=== PATIENT | male | born 1955 | race Caucasian/White ===

== ENCOUNTER 2018-08-09 11:06 | Outpatient (CLI) | payer OTHER ==
[~2018-08-09] VITALS: Ht 172.7 cm; Wt 104.3 kg
[2018-08-09] MEDS ORDERED: IRBE300T18 PO (12:58)
[2018-08-09] MEDS ORDERED: METO-370 PO (12:58)
[2018-08-09] MEDS ORDERED: ASPI-586 PO (12:58)
== END 2018-08-09 13:07 | disposition home or self-care (01) ==
LOC: PREOP 11:06
PROVIDERS: ATTEND Surgery
DX: Z01.818 Encounter for other preprocedural examination (principal)

== ENCOUNTER 2018-08-17 06:01 | Day surgery (SDC) | payer BC, OTHER ==
[~2018-08-17] VITALS: Ht 172.7 cm; Wt 104.4 kg
[~2018-08-17 06:01] MED LIST: ASPI-586 PO; IRBE300T18 PO; METO-370 PO
[2018-08-17 06:20] VITALS: BP 154/114
[2018-08-17] MEDS ORDERED: LACTATED RINGERS 1,000 ML IV PRN (06:22)
[2018-08-17] MEDS ORDERED: ceFAZolin 2 GM IV Premixed 50 ML IV ONE (06:30)
[2018-08-17] MEDS ORDERED: LIDOCAINE 1% INJ 20 ML 20 ML VIAL ONE (07:21)
[2018-08-17] MEDS ORDERED: BUP/EPI 0.5% 1:200,000 (SENSORCAINE) 30 ML VIAL ONE (07:21)
[2018-08-17] MEDS ORDERED: MIDAZOLAM 2 MG/2 ML (VERSED) VIAL ONE ×2 (07:23→07:26)
[2018-08-17] MEDS ORDERED: proPOfol 200 MG/20 ML (DIPRIVAN) VIAL IV ONE ×2 (07:26→08:51)
[2018-08-17] MEDS ORDERED: DEXAMETHASONE 10 MG/ML (DECADRON) 1 ML VIAL ONE (07:26)
[2018-08-17] MEDS ORDERED: SEVOFLURANE (ULTANE) 15 ML INHAL SOLN ONE ×2 (07:26→09:03)
[2018-08-17] MEDS ORDERED: fentaNYL INJECTION 100 MCG/2 ML AMP ONE (07:26)
[2018-08-17] MEDS ORDERED: LIDOCAINE PF 2% 5 ML (XYLOCAINE) VIAL ONE (07:26)
[2018-08-17] MEDS ORDERED: ONDANSETRON 4 MG/2 ML (SDV) Z0FRAN ONE (07:26)
[2018-08-17] MEDS ORDERED: MIDAZOLAM 2 MG/2 ML (VERSED) VIAL IVP ONE (07:30)
[2018-08-17] MEDS ORDERED: LABETALOL HCL 20 MG/4 ML VIAL IV ONE (07:30)
--- NOTE | 2018-08-17 08:26 | Progress Note-Pre Operative ---
Pre-Operative Progress Note H&P Reviewed The H&P was reviewed, patient examined and no changes noted. Time Seen by Provider: 08:21 Date H&P Reviewed: Aug 17, 2018 Time H&P Reviewed: 08:22 Pre-Operative Diagnosis: Inc RACIEL PAIZ DO Aug 17, 2018 08:26
[2018-08-17] MEDS ORDERED: ACHD5005 PO (09:14)
--- NOTE | 2018-08-17 09:14 | Progress Note-Post Operative ---
Post-Operative Progess Note Surgeon (s)/Supervisor [employer] (s) Surgeon RACIEL GARSIA DO Supervisor [employer]: Stephen Pre-Operative Diagnosis Inc [facility] Post-Operative Diagnosis Same - direct Cord lipoma Procedure & Operative Findings Date of Procedure 08/17/18 Procedure Performed/Findings RIH with mesh Exc cord lipoma Anesthesia Type GET Estimated Blood Loss Estimated blood loss (mL): Scant Specimens/Packing Specimens Removed cord lipoma RACIEL GARSIA DO Aug 17, 2018 09:14
--- NOTE | 2018-08-17 09:15 | Discharge Inst-Surgical ---
Discharge Inst-Surgical Depart Medication/Instructions New, Converted or Re-Newed RX: RX Given to Pt/Family Patient Instructions Follow up Appt: Make appointment for 1 week. [phone] Instructions: No lifting greater than 20 pounds. No strenuous activity. May shower in 24 hours, no tub bath or soaking. Use incentive spirometer at home as directed. No Smoking Skin/Wound Care: May remove bandages in am. You need to leave the Dermabond on incision it will fall off on it's own. Symptoms to Report: Appetite Changes, Extremity Discoloration, Numbness/Tingling, Swelling Increased , Bleeding Excessive, Eyesight Changes, Pain Increased, Urine Color Change, Constipation(Persistent), Fever over 101 degree F, Pain/Pressure in chest, Urinating Difficulty, Cough Up/Vomit Blood, Heart Beat Irreg/Pounding, Pain/ Pressure in jaw, Cramps in feet or legs, Lightheadedness, Pain/Pressure in shoulder, Diarrhea(Persistent), Memory Changes Suddenly, Questions/Concerns, Weight gain consecutive days, Dizziness/Fainting, Nausea/Vomiting, Shortness of Breath, Weight gain over 2 pounds If questions or concerns contact your physician Or seek help at emergency department. Activity Activity as Tolerated: Yes Activity Instructions: Avoid Stress to Incision Driving Instructions: No Driving/Refer to Dr. Rob Discharge Diet: No Restrictions Diet After 24 Hours: Clear Liquid if Nauseous If Any Problems/Questions/Issu: Contact Your Physician Skin/Wound Care Infection Signs and Symptoms: Increased Redness, Foul Odor of Wound, Increased Drainage, Skin Itchy or Has a Rash, Increased Swelling, Temperature Above 101 F Stitches/[place]/Dermabond Dis: Dermabond Ice Pack: Ice On and Off Site (as needed for pain) RACIEL GARSIA DO Aug 17, 2018 09:15
[2018-08-17] MEDS ORDERED: morphine INJ 10 MG/ML 1ML (SYR OR VIAL) IVP ONE (09:30)
[2018-08-17 10:20] VITALS: BP 130/96
[2018-08-17 10:25] VITALS: BP 154/114
[2018-08-17 10:50] VITALS: BP 125/87
[2018-08-17 11:20] VITALS: BP 135/90
--- NOTE | 2018-08-17 13:03 | Anesthesia-General Post-Op ---
General Patient Condition Mental Status/LOC: Same as Preop Cardiovascular: Satisfactory Nausea/Vomiting: Absent Respiratory: Satisfactory Pain: Controlled Complications: Absent Post Op Complications Complications None Follow Up Care/Instructions Patient Instructions None needed. Anesthesia/Patient Condition Patient Condition Patient is doing well, no complaints, stable vital signs, no apparent adverse anesthesia problems. No complications reported per nursing. DAE LUX CRNA Aug 17, 2018 13:03
--- NOTE | 2018-08-17 15:35 | OPERATIVE REPORT ---
DATE OF SERVICE: 08/17/2018 PREOPERATIVE DIAGNOSIS: Right inguinal hernia. POSTOPERATIVE DIAGNOSES: 1. Right incarcerated indirect inguinal hernia. 2. Cord lipoma. PROCEDURES PERFORMED: 1. Right inguinal herniorrhaphy and mesh placement. 2. Excision of cord lipoma. SURGEON: Dagoberto Lora DO. ANTITANK ASSAULT GUNNER: Guy Mitchell DO. ANESTHESIA: General endotracheal tube. SPECIMEN: Cord lipoma. BLOOD LOSS: Scant. FLUIDS: Per Anesthesia. POSTOPERATIVE CONDITION: Stable. INDICATION FOR PROCEDURE: The patient is a 63-year-old male who had bulge in the right inguinal region, little bit of pain and diagnosed with inguinal hernia, wanted to get this fixed, I felt like it was reducible in the office. FINDINGS: The patient actually had an incarcerated direct inguinal hernia as well as he had a cord lipoma. PROCEDURE NOTE: After informed consent was obtained, the patient was brought to the operating room, placed on the table in supine position, sterilely prepped and draped in normal fashion. Local lidocaine used for an ilioinguinal nerve block as well as pubic tubercle block and then infiltrated the right inguinal region with local, made incision with #15 blade, carried down through the skin into subcutaneous tissue, then deepened down to subcutaneous tissue with Bovie electrocautery down to the fascia of the external oblique. External oblique fascia was then infiltrated with local and incised to the external inguinal ring with Bovie electrocautery, grasping 2 sides with hemostats, then able to get under the external oblique fascia bluntly with a finger to free this area and then get under the cord and cord structures at the pubic tubercle. I placed a [place] drain and pulled this in the inferolateral direction, noted a very large hernia sac attached to the cord and cord structures. I was able to start carefully peeling this away and it was found to be a large direct inguinal hernia sac. At this point, then I looked superior medially and did not find indirect inguinal hernia sac. Pushed the indirect hernia sac back into the abdomen and then closed the floor of the inguinal canal with #0 Vicryl two [id number] sutures. This was closed nicely. I then placed a Parietex mesh into the inguinal canal, sutured one to the pubic tubercle and encircled the cord with a precut hole and then placing it up under the external oblique fascia and laid in nicely, copiously irrigated with normal saline, suctioned this out. I then closed the external fascia with 3-0 Vicryl running suture, thereby recreating the external inguinal ring and the internal inguinal ring had been recreated with the mesh, then closed Tg fascia with 3-0 Vicryl interrupted sutures and closed the skin with a 4-0 undyed Monocryl in subcuticular fashion. Area was cleaned and dried and Dermabond placed. The patient was then transferred to recovery room in stable condition. Sponge and needle counts were correct at the end of the case. Dr. Mitchell assisted in this case helping to close the incisions, identifying anatomy, hold anatomy out of the way. Job ID: [id number] DocumentID: [id number] Dictated Date: 08/17/2018 11:54:14 Repair Mechanic Date: 08/17/2018 15:34:32 Dictated By: DAGOBERTO LORA DO
== END 2018-08-17 11:50 | disposition home or self-care (01) ==
LOC: SDC 06:01
PROVIDERS: ATTEND Surgery
DX: K40.30 Unilateral inguinal hernia, with obstruction, without gangrene, not specified as recurrent (principal); D17.6 Benign lipomatous neoplasm of spermatic cord; I48.2 Chronic atrial fibrillation; I10 Essential (primary) hypertension; E78.5 Hyperlipidemia, unspecified; K21.9 Gastro-esophageal reflux disease without esophagitis; E66.9 Obesity, unspecified; Z68.35 Body mass index [BMI] 35.0-35.9, adult; Z79.82 Long term (current) use of aspirin; Z79.899 Other long term (current) drug therapy
CPT/HCPCS: 87081; 93005

== ENCOUNTER 2018-10-24 05:38 | Outpatient (CLI) | payer BC ==
[~2018-10-24] VITALS: Ht 172.7 cm; Wt 102.2 kg
[~2018-10-24 05:38] MED LIST changes: +ACHD5005 PO
[2018-10-24] MEDS ORDERED: CHLO25TA22 PO (13:58)
[2018-10-24] MEDS ORDERED: OLME40TA18 PO (13:58)
== END 2018-10-24 14:24 | disposition home or self-care (01) ==
LOC: PREOP 05:38
PROVIDERS: ATTEND Internal Medicine
DX: Z01.818 Encounter for other preprocedural examination (principal)

== ENCOUNTER → 2018-10-27 | Day surgery (SDC) | payer BC ==
--- NOTE | 2018-10-20 17:36 | HISTORY AND PHYSICAL ---
DATE OF SERVICE: SCREENING COLONOSCOPY HISTORY AND PHYSICAL HISTORY OF PRESENT ILLNESS: The patient is 63-year-old white male seen in the office on 10/18/2018 for followup of persistent atrial fibrillation, hypertension and nonalcoholic fatty liver disease. He has been exercising regularly and has cut back on portions and his weight is down 6 pounds with a goal by next April to get to the 210 area. He reports that he has felt well. Ever since initiating irbesartan, his blood pressures have been under better control in addition to chlorthalidone 25 mg. He will be switching to olmesartan due to drug shortages 40 mg daily. He has had no palpitations. Denies chest pain, dyspnea on exertion. Reports that his sleep is restorative. It has been 11 years since his last screening colonoscopy that he stated was unremarkable. He is not aware of any family history for colon cancer. PHYSICAL EXAMINATION: GENERAL: Reveals a white male, appears to be in no acute distress. His BMI is still greater than 30. His height 5 feet 6.5 inches tall with a weight of 231 pounds. VITAL SIGNS: Blood pressure 130/90 at the beginning of the interview and 120/82 at the end, which he states is where his home blood pressures usually run. Heart rate was in the 60s and irregularly irregular. HEENT: Unremarkable. Sclerae nonicteric. Oral cavity reveals Mallampati class 3 pharyngeal configuration without exudate. NECK: Revealed no JVD, adenopathy or bruits. CHEST: Clear to auscultation. CARDIOVASCULAR: Reveals an irregularly irregular rhythm without murmur, S3 or S4. ABDOMEN: Soft, supple without mass, organomegaly or tenderness. EXTREMITIES: Reveal no cyanosis, clubbing or edema. Rectal examination deferred to the time of the colonoscopy, which is being set up on 10/27. Prep instructions with Suprep kit were given and questions were answered. Blood tests were reviewed with the patient. Liver function tests were normal. We pointed out an improvement because of weight loss with an AST of 18 and an ALT of 28. He does have insulin resistance, but this has improved as well with a fasting sugar having gone down from 127 to 118. PSA remains stable and normal at 2.47. The remainder of his chemistry panel was normal. ASSESSMENT AND PLAN: 1. Atrial fibrillation, persistent rate controlled. The patient refuses anticoagulation only on aspirin, which he was told to discontinue 1 week prior to colonoscopy. 2. Hypertension. Under good control. 3. Nonalcoholic fatty liver disease, normalization of liver function tests due to weight loss. The patient commended and strongly encouraged to continue positive lifestyle change. We will see him back in 6 months with a repeat CMP. Job ID: [id number] DocumentID: [id number] Dictated Date: 10/18/2018 18:15:54 Emergency Man Date: 10/18/2018 18:57:41 Dictated By: ALANA OAKES MD MTDD
[~2018-10-27] VITALS: Ht 172.7 cm; Wt 102.2 kg
[~2018-10-27] MED LIST changes: +CHLO25TA22 PO; +D5 LR IV SOLUTION 1,000 ML IV ONE; +D5 LR IV SOLUTION 1,000 ML IV STA; +DICY20TA10 PO; +HYOS0.1283 SL; +LACT1CAP8 PO; +LIDOCAINE JELLY 2% 6 ML SYRINGE MM PRN; +LIDOCAINE JELLY 2% 6 ML SYRINGE ONE; +MIDAZOLAM 2 MG/2 ML (VERSED) VIAL IVP ONE; +MIDAZOLAM 2 MG/2 ML (VERSED) VIAL ONE; +OLME40TA18 PO; +ONDA8TAB13 PO; +PANT40TA2 PO; +fentaNYL INJECTION 100 MCG/2 ML AMP IVP ONE; +fentaNYL INJECTION 100 MCG/2 ML AMP ONE
--- OUTSIDE RECORDS SUMMARY | 2018-10-27 08:03 | XMS REPORT | Continuity of Care Document ---
Author Organization Unknown Address Unknown Allergies Active Description Code Type Severity Reaction Onset Reported/Identified Relationship to Patient Clinical Status Yes No Known Drug Allergies [id number] Drug Allergy Unknown N/A 08/09/2018 Medications There is no data. Problems Date Dx Coded Attending Type Code Diagnosis Diagnosed By 05/10/2012 MARTHA CONLEY APRN 401.1 HYPERTENSION, BENIGN ESSENTIAL 05/10/2012 MARTHA CONLEY APRN 427.31 ATRIAL FIBRILLATION 05/10/2012 401.1 HYPERTENSION, BENIGN ESSENTIAL 05/10/2012 427.31 ATRIAL FIBRILLATION 05/10/2012 BINH HERNANDEZ DO 401.1 HYPERTENSION, BENIGN ESSENTIAL 05/10/2012 BINH HERNANDEZ DO K 427.31 ATRIAL FIBRILLATION 05/10/2012 ISABELLA GLEASON MD 401.1 HYPERTENSION, BENIGN ESSENTIAL 05/10/2012 ISABELLA GLEASON MD 427.31 ATRIAL FIBRILLATION 05/10/2012 MARTHA CONLEY APRN 401.1 HYPERTENSION, BENIGN ESSENTIAL 05/10/2012 MARTHA CONLEY APRN 427.31 ATRIAL FIBRILLATION 05/10/2012 MARTHA CONLEY APRN 401.1 HYPERTENSION, BENIGN ESSENTIAL 05/10/2012 MARTHA CONLEY APRN 427.31 ATRIAL FIBRILLATION 05/15/2012 272.4 HYPERLIPIDEMIA 05/15/2012 790.29 HYPERGLYCEMIA 05/15/2012 BINH HERNANDEZ DO 272.4 HYPERLIPIDEMIA 05/15/2012 BINH HERNANDEZ DO K 790.29 HYPERGLYCEMIA 05/15/2012 ISABELLA GLEASON MD 272.4 HYPERLIPIDEMIA 05/15/2012 ISABELLA GLEASON MD 790.29 HYPERGLYCEMIA 05/15/2012 MARTHA CONLEY APRN 272.4 HYPERLIPIDEMIA 05/15/2012 MARTHA CONLEY APRN 790.29 HYPERGLYCEMIA 05/15/2012 MARTHA CONLEY APRN 272.4 HYPERLIPIDEMIA 05/15/2012 MARTHA CONLEY APRN 790.29 HYPERGLYCEMIA 05/26/2015 VIOLETTE LEVY, ALANA Murillo Ot I10 05/26/2015 VIOLETTE LEVY, ALANA Murillo Ot I48.91 08/09/2018 SUN DO, RACIEL B Ot Z01.818 ENCOUNTER FOR OTHER PREPROCEDURAL EXAMIN 08/10/2018 DELJANUSZ DO, RACIEL B Ot Z01.818 ENCOUNTER FOR OTHER PREPROCEDURAL EXAMIN 08/15/2018 SUN DO, RACIEL B Ot Z01.818 ENCOUNTER FOR OTHER PREPROCEDURAL EXAMIN 08/16/2018 ALANA OAKES MD Ot I10 ESSENTIAL (PRIMARY) HYPERTENSION 08/16/2018 ALANA OAKES MD Ot I48.91 UNSPECIFIED ATRIAL FIBRILLATION 08/17/2018 SUN DO, RACIEL B Ot 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 08/17/2018 SUN DO, RACIEL B Ot E66.9 OBESITY, UNSPECIFIED 08/17/2018 SUN DO, RACIEL B Ot E78.5 HYPERLIPIDEMIA, UNSPECIFIED 08/17/2018 DELJANUSZ DO, RACIEL B Ot I10 ESSENTIAL (PRIMARY) HYPERTENSION 08/17/2018 SUN DO, RACIEL B Ot I48.2 CHRONIC ATRIAL FIBRILLATION 08/17/2018 SUN DO, RACIEL B Ot K21.9 GASTRO-ESOPHAGEAL REFLUX DISEASE WITHOUT 08/17/2018 SUN DO, RACIEL B Ot K40.30 UNIL INGUINAL HERNIA, W OBST, W/O GANGR, 08/17/2018 SUN ROBIN, RACIEL B Ot Z68.35 BODY MASS INDEX (BMI) 35.0-35.9, ADULT 08/17/2018 SUN ROBIN, RACIEL B Ot Z79.82 LONGTERM (CURRENT) USE OF ASPIRIN 08/17/2018 ZENJANUSZ ROBIN RACIEL B Ot Z79.899 OTHER EDITORIAL CLERK (CURRENT) DRUG THERAPY 08/21/2018 SUN ROBIN, RACIEL B Ot 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 08/21/2018 SUN DO, RACIEL B Ot E66.9 OBESITY, UNSPECIFIED 08/21/2018 DELJANUSZ DO, RACIEL B Ot E78.5 HYPERLIPIDEMIA, UNSPECIFIED 08/21/2018 DELJANUSZ DO, RACIEL B Ot I10 ESSENTIAL (PRIMARY) HYPERTENSION 08/21/2018 SUN DO, RACIEL B Ot I48.2 CHRONIC ATRIAL FIBRILLATION 08/21/2018 DELJANUSZ DO, RACIEL B Ot K21.9 GASTRO-ESOPHAGEAL REFLUX DISEASE WITHOUT 08/21/2018 DELMAN DO, RACIEL B Ot K40.30 UNIL INGUINAL HERNIA, W OBST, W/O GANGR, 08/21/2018 RACIEL GARSIA DO B Ot Z68.35 BODY MASS INDEX (BMI) 35.0-35.9, ADULT 08/21/2018 MADELEINE GARSIA DOIC B Ot Z79.82 LONGTERM (CURRENT) USE OF ASPIRIN 08/21/2018 MADELEINE GARSIA DOIC B Ot Z79.899 OTHER EDITORIAL CLERK (CURRENT) DRUG THERAPY 08/21/2018 MADELEINE GARSIA DOIC B Ot 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 08/21/2018 SUN ROBIN RACIEL B Ot E66.9 OBESITY, UNSPECIFIED 08/21/2018 SUN ROBIN RACIEL B Ot E78.5 HYPERLIPIDEMIA, UNSPECIFIED 08/21/2018 SUN ROBIN RACIEL B Ot I10 ESSENTIAL (PRIMARY) HYPERTENSION 08/21/2018 SUN ROBIN RACIEL B Ot I48.2 CHRONIC ATRIAL FIBRILLATION 08/21/2018 SUN ROBIN RACIEL B Ot K21.9 GASTRO-ESOPHAGEAL REFLUX DISEASE WITHOUT 08/21/2018 SUN ROBIN, RACIEL B Ot K40.30 UNIL INGUINAL HERNIA, W OBST, W/O GANGR, 08/21/2018 RACIEL GARSIA DO B Ot Z68.35 BODY MASS INDEX (BMI) 35.0-35.9, ADULT 08/21/2018 MADELEINE GARSIA DOIC B Ot Z79.82 EDITORIAL CLERK (CURRENT) USE OF ASPIRIN 08/21/2018 MADELEINE GARSIA DOIC B Ot Z79.899 OTHER LONGTERM (CURRENT) DRUG THERAPY 08/23/2018 MADELEINE GARSIA DOIC B Ot 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 08/23/2018 SUN ROBIN RACIEL B Ot E66.9 OBESITY, UNSPECIFIED 08/23/2018 SUN ROBIN, RACIEL B Ot E78.5 HYPERLIPIDEMIA, UNSPECIFIED 08/23/2018 SUN ROBIN, RACIEL B Ot I10 ESSENTIAL (PRIMARY) HYPERTENSION 08/23/2018 SUN ROBIN RACIEL B Ot I48.2 CHRONIC ATRIAL FIBRILLATION 08/23/2018 SUN ROBIN RACIEL B Ot K21.9 GASTRO-ESOPHAGEAL REFLUX DISEASE WITHOUT 08/23/2018 SUN ROBIN, RACIEL B Ot K40.30 UNIL INGUINAL HERNIA, W OBST, W/O GANGR, 08/23/2018 RACIEL GARSIA DO Ot Z68.35 BODY MASS INDEX (BMI) 35.0-35.9, ADULT 08/23/2018 RACIEL GARSIA DO Ot Z79.82 LONGTERM (CURRENT) USE OF ASPIRIN 08/23/2018 RACIEL GARSIA DO Ot Z79.899 OTHER LONGTERM (CURRENT) DRUG THERAPY 10/24/2018 VIOLETTE LEVY, ALANA Murillo Ot Z01.818 ENCOUNTER FOR OTHER PREPROCEDURAL EXAMIN Procedures Code Description [place] [address] ROUTINE VENIPUNCTURE 05/11/2012 19018 CBC 05/11/2012 49893 LIPID PANEL 05/11/2012 61867 CMP 05/11/2012 8858623 GFR CALC (RESULT ONLY) 05/11/2012 75190 CRP HS (CARDIO) 05/12/2012 38118 TSH 05/12/2012 49504 BNP 05/12/2012 29204 XRAY CHEST 2 VIEW 05/12/2012 24627 EKG, TRACING (IN-HOUSE) 05/12/2012 Cardiolog Andre Mccullough 05/12/2012 09426 A1C (IN-HOUSE) 05/15/2012 78796 OXIMETRY 06/14/2012 55378 ECHO 2D 06/14/2012 00526 ROUTINE VENIPUNCTURE 03/18/2014 43768 CBC 03/18/2014 27048 CMP 03/18/2014 99577 LIPID PANEL 03/18/2014 6140042 GFR CALC (RESULT ONLY) 03/18/2014 Results Test Result Range Methicillin resistant Staphylococcus aureus (MRSA) screening culture - 08/17/18 06:30 Methicillin resistant Staphylococcus aureus (MRSA) screening culture NEG NRG Encounters ACCT No. Visit Date/Time Discharge Status Pt. Type Provider Facility Loc./Unit Complaint [id number] 03/18/2014 07:57:00 03/18/2014 23:59:59 CLS Outpatient MARTHA CONLEY APRN [id number] 03/13/2014 17:33:00 03/13/2014 23:59:59 CLS Outpatient MARTHA CONLEY APRN [id number] 01/10/2013 10:00:00 01/10/2013 23:59:59 CLS Outpatient ISABELLA GLEASON MD [id number] 06/14/2012 08:55:00 06/14/2012 23:59:59 CLS Outpatient BINH HERNANDEZ DO [id number] 05/15/2012 11:40:00 05/15/2012 23:59:59 CLS Outpatient [id number] 05/11/2012 10:04:00 05/11/2012 23:59:59 CLS Outpatient MARTHA CONLEY APRN [id number] 10/24/2018 05:38:00 10/24/2018 14:24:00 DIS Outpatient ALANA OAKES MD [facility] PREOP COLONOSCOPY [id number] 08/17/2018 06:01:00 08/17/2018 11:50:00 DIS Outpatient RACIEL GARSIA DO [facility] RIGHT INGUINAL HERNIA [id number] 08/09/2018 11:06:00 08/09/2018 13:07:00 DIS Outpatient RACIEL GARSIA DO [facility] PREOP RIGHT INGUINAL HERNIA [id number] 04/28/2015 08:45:00 04/28/2015 23:59:59 CLS Outpatient ALANA OAKES MD [facility] CARD HYPERTENSION PERSISTANT ARTERIAL FIB [id number] 10/27/2018 09:00:00 PEN Preadmit ALANA OAKES MD [facility] ENDO SCREENING
[2018-10-27 08:10] VITALS: BP 135/99
[2018-10-27 09:55] VITALS: BP 134/78
[2018-10-27 10:20] VITALS: BP 118/80
[2018-10-27 10:32] VITALS: BP 118/80
--- NOTE | 2018-10-27 20:00 | OPERATIVE REPORT ---
DATE OF SERVICE: 10/27/2018 COLONOSCOPY SUMMARY INDICATION FOR THE PROCEDURE: Screening colonoscopy. DESCRIPTION OF PROCEDURE: The patient was placed in left lateral decubitus position. Prior to undergoing colonoscopy, digital rectal evaluation was performed. Anal sphincter tone was normal. Perianal reflexes intact. Prostate is mildly enlarged, anodular and nontender to digital inspection. There is uniform consistency. No abnormalities were noted to digital inspection of anal canal or distal rectal vault. The colonoscope was then inserted into the rectum and under direct visualization advanced to the cecum. The cecum was identified by identification of the ileocecal valve and cecal strap. Photographic documentation was obtained. Careful inspection was made as the colonoscope was withdrawn. The quality of prep was good. The patient tolerated the procedure well. FINDINGS: There was no evidence for internal or external hemorrhoids. The rectum was unremarkable. Present in the mid and proximal sigmoid colon were several small diverticulum without evidence for diverticulitis. No other sigmoid colonic abnormalities were appreciated. The descending colon, splenic flexure, transverse colon, ascending colon and cecum of the colon were unremarkable. ASSESSMENT: Mild diverticular disease confined to the sigmoid colon was present with an otherwise normal colonoscopy to the cecum. Digital evaluation of the prostate was compatible with mild benign prostatic hypertrophy. Job ID: [id number] DocumentID: [id number] Dictated Date: 10/27/2018 10:37:08 Hiv Nurse Date: 10/27/2018 20:00:20 Dictated By: ALANA OAKES MD
== END | disposition home or self-care (01) ==
LOC: ENDO 08:01
PROVIDERS: ATTEND Internal Medicine
DX: Z12.11 Encounter for screening for malignant neoplasm of colon (principal); K57.30 Diverticulosis of large intestine without perforation or abscess without bleeding; N40.0 Benign prostatic hyperplasia without lower urinary tract symptoms; I48.1 Persistent atrial fibrillation; I10 Essential (primary) hypertension; Z79.82 Long term (current) use of aspirin; Z79.899 Other long term (current) drug therapy

== ENCOUNTER 2018-11-01 07:18 | Emergency (ER) | payer BC ==
[~2018-11-01] VITALS: Ht 172.7 cm; Wt 102.2 kg
[~2018-11-01 07:18] MED LIST changes: -D5 LR IV SOLUTION 1,000 ML IV ONE; -D5 LR IV SOLUTION 1,000 ML IV STA; -DICY20TA10 PO; -HYOS0.1283 SL; -LACT1CAP8 PO; -LIDOCAINE JELLY 2% 6 ML SYRINGE MM PRN; -LIDOCAINE JELLY 2% 6 ML SYRINGE ONE; -MIDAZOLAM 2 MG/2 ML (VERSED) VIAL IVP ONE; -MIDAZOLAM 2 MG/2 ML (VERSED) VIAL ONE; -ONDA8TAB13 PO; -PANT40TA2 PO; -fentaNYL INJECTION 100 MCG/2 ML AMP IVP ONE; -fentaNYL INJECTION 100 MCG/2 ML AMP ONE
--- OUTSIDE RECORDS SUMMARY | 2018-11-01 07:24 | XMS REPORT | Continuity of Care Document ---
Author Organization Unknown Address Unknown Allergies Active Description Code Type Severity Reaction Onset Reported/Identified Relationship to Patient Clinical Status Yes No Known Drug Allergies [id number] Drug Allergy Unknown N/A 08/09/2018 Medications There [...] ISABELLA GLEASON MD 427.31 ATRIAL FIBRILLATION 05/10/2012 MRATHA CONLEY APRN 401.1 HYPERTENSION, BENIGN ESSENTIAL 05/10/2012 [...] 08/17/2018 SUN ROBIN, RACIEL B Ot Z79.82 CORRECTION (CURRENT) USE OF ASPIRIN 08/17/2018 ZENJANUSZ ROBIN RACIEL B Ot Z79.899 OTHER AIR TABLE OPERATOR (CURRENT) DRUG THERAPY 08/21/2018 SUN ROBIN, RACIEL [...] 08/21/2018 MADELEINE GARSIA DOIC B Ot Z79.82 CORRECTION (CURRENT) USE OF ASPIRIN 08/21/2018 MADELEINE GARSIA DOIC B Ot Z79.899 OTHER AIR TABLE OPERATOR (CURRENT) DRUG THERAPY 08/21/2018 MADELEINE GARSIA DOIC [...] 08/21/2018 MADELEINE GARSIA DOIC B Ot Z79.82 AIR TABLE OPERATOR (CURRENT) USE OF ASPIRIN 08/21/2018 MADELEINE GARSIA DOIC B Ot Z79.899 OTHER CORRECTION (CURRENT) DRUG THERAPY 08/23/2018 MADELEINE GARSIA DOIC [...] ADULT 08/23/2018 RACIEL GARSIA DO Ot Z79.82 CORRECTION (CURRENT) USE OF ASPIRIN 08/23/2018 RACIEL GARSIA DO Ot Z79.899 OTHER CORRECTION (CURRENT) DRUG THERAPY 10/24/2018 VIOLETTE LEVY, ALANA Murillo Ot Z01.818 ENCOUNTER FOR OTHER PREPROCEDURAL EXAMIN Procedures Code Description [place] [address] ROUTINE VENIPUNCTURE 05/11/2012 33266 CBC 05/11/2012 59610 LIPID PANEL 05/11/2012 10773 CMP 05/11/2012 4920342 GFR CALC (RESULT ONLY) 05/11/2012 70536 CRP HS (CARDIO) 05/12/2012 02258 TSH 05/12/2012 63028 BNP 05/12/2012 08928 XRAY CHEST 2 VIEW 05/12/2012 81070 EKG, TRACING (IN-HOUSE) 05/12/2012 Cardiolog Andre Mccullough 05/12/2012 81346 A1C (IN-HOUSE) 05/15/2012 28207 OXIMETRY 06/14/2012 48084 ECHO 2D 06/14/2012 11602 ROUTINE VENIPUNCTURE 03/18/2014 87607 CBC 03/18/2014 96875 CMP 03/18/2014 91000 LIPID PANEL 03/18/2014 6767034 GFR CALC (RESULT ONLY) 03/18/2014 Results Test Result Range Methicillin resistant Staphylococcus aureus (MRSA) screening culture - 08/17/18 06:30 Methicillin resistant Staphylococcus aureus (MRSA) screening culture NEG NRG Encounters ACCT No. Visit Date/Time Discharge Status Pt. Type Provider Facility Loc./Unit Complaint [id number] 03/18/2014 07:57:00 03/18/2014 23:59:59 CLS Outpatient MARTHA CONLEY APRN [id number] 03/13/2014 17:33:00 03/13/2014 23:59:59 CLS Outpatient MARTHA CONLEY APRN [id number] 01/10/2013 10:00:00 01/10/2013 23:59:59 CLS Outpatient ISABELLA GLEASON MD [id number] 06/14/2012 08:55:00 06/14/2012 23:59:59 CLS Outpatient BINH HERNANDEZ DO [id number] 05/15/2012 11:40:00 05/15/2012 23:59:59 CLS Outpatient [id number] 05/11/2012 10:04:00 05/11/2012 23:59:59 CLS Outpatient MARTHA CONLEY APRN [id number] 10/27/2018 08:01:00 10/27/2018 23:59:59 CLS Outpatient ALANA OAKES MD [facility] ENDO SCREENING [id number] 10/24/2018 05:38:00 10/24/2018 14:24:00 DIS Outpatient ALANA OAKES MD [facility] PREOP COLONOSCOPY [id number] 08/17/2018 06:01:00 08/17/2018 11:50:00 DIS Outpatient RACIEL GARSIA DO [facility] RIGHT INGUINAL HERNIA [id number] 08/09/2018 11:06:00 08/09/2018 13:07:00 DIS Outpatient RACIEL GARSIA DO [facility] PREOP RIGHT INGUINAL HERNIA [id number] 04/28/2015 08:45:00 04/28/2015 23:59:59 CLS Outpatient ALANA OAKES MD [facility] CARD HYPERTENSION PERSISTANT ARTERIAL FIB
[2018-11-01] MEDS ORDERED: LACTATED RINGERS 1,000 ML IV ONE (07:25)
[2018-11-01] MEDS ORDERED: ONDANSETRON 4 MG/2 ML (SDV) Z0FRAN IVP ONE ×2 (07:30→09:30)
--- NOTE | 2018-11-01 07:42 | ED GI ---
General Stated Complaint: N/V/D;ABD PAIN Source of Information: Patient, Spouse History of Present Illness Date Seen by Provider: November 01, 2018 Time Seen by Provider: 07:26 Initial Comments PT ARRIVES VIA POV FROM HOME, C/O NAUSEA/VOMITING/DIARRHEA AND DIFFUSE UPPER ABDOMINAL PAIN SINCE YESTERDAY AFTERNOON PT HAS FEVER OF 101.6 YESTERDAY AFTERNOON HAS VOMITED >5 <10 DIARRHEA--UNKNOWN #, BUT NOW DOES NOT HAVE ANYTHING LEFT IN HIM. NO BLACK/BLOODY/TARRY STOOLS PT HAS NOT EATEN SINCE YESTERDAY MORNING, AND HAS ONLY BEEN SIPPING ON WATER SINCE THEN HAS HAD DECREASED URINE OUTPUT, PT IS ALSO ON A DIURETIC PT STATES PAIN IS CONSTANT, AND WAXES AND WANES--RATES PAIN 8/10 AT WORST, 5/10 NOW. WORSENS WITH FOOD NO CHEST PAIN NO SHORTNESS OF BREATH NO SICK CONTACTS OR SUSPICIOUS FOODS. NO HISTORY OF SIMILAR PT HAD ROUTINE SCREENING COLONOSCOPY ON TUESDAY BY DR. OAKES, WAS REPORTEDLY NORMAL, PER PT--LAST COLONOSCOPY WAS 12 YEARS AGO ONLY ABDOMINAL SURGERY HAS BEEN BILATERAL INGUINAL HERNIA REPAIRS--LEFT SIDE> 20 YEARS AGO, RIGHT SIDE 08/17/18 PCP: DR. OAKES Allergies and Home Medications Allergies Coded Allergies: No Known Drug Allergies (Unverified , 11/01/18) Home Medications Aspirin 81 Mg Tablet., 81 MG PO DAILY@1900, (Reported) Chlorthalidone 25 Mg Tablet, 25 MG PO DAILY, (Reported) Dicyclomine HCl 20 Mg Tablet, 20 MG PO Q6H Prescribed by: CHERY HINOJOSA on 11/01/18 1041 Hyoscyamine Sulfate 0.125 Mg Tab.subl, 1-2 TAB SL Q4H Prescribed by: CHERY HINOJOSA on 11/01/18 1041 Metoprolol Succinate 50 Mg Tab.er.24h, 50 MG PO DAILY@1900, (Reported) Olmesartan Medoxomil 40 Mg Tablet, 40 MG PO DAILY, (Reported) Ondansetron 8 Mg Tab.rapdis, 8 MG PO Q6H Prescribed by: CHERY HINOJOSA on 11/01/18 1041 Pantoprazole Sodium 40 Mg Tablet., 40 MG PO DAILY Prescribed by: CHERY HINOJOSA on 11/01/18 1041 Review of Systems Review of Systems Constitutional: see HPI, fever, malaise, weakness EENTM: No Symptoms Reported Respiratory: No Symptoms Reported Cardiovascular: No Symptoms Reported Gastrointestinal: See HPI, Abdominal Pain, Diarrhea, Nausea, Poor Appetite, Poor Fluid Intake, Vomiting Genitourinary: See HPI; Denies Burning, Denies Flank Pain Musculoskeletal: no symptoms reported Skin: no symptoms reported Psychiatric/Neurological: No Symptoms Reported Endocrine: No Symptoms Reported Past Pomaunb-Icvfqv-Fytwhl Hx Patient Social History Alcohol Use: Regular Use (SEVERAL TIMES A WEEK--COUPLE OF BEERS OR WINE) Alcohol Beverage of Choice: Beer Recreational Drug Use: No Smoking Status: Never a Smoker 2nd Hand Smoke Exposure: No Recent Hopitalizations: No Immunizations Up To Date Tetanus Booster (TDap): Unknown PED Vaccines UTD: No Date of Influenza Vaccine: Mar 06, 2018 Seasonal Allergies Seasonal Allergies: Yes Past Medical History Surgeries: Yes (BILAT INGUINAL HERNIA-LEFT > 20 YEARS AGO, RIGHT 08/17/18, SEPTOPLASTY/RHINOPLASTY) Abdominal, Nose, Tonsillectomy Respiratory: No Cardiac: Yes (PT HAS DECLINED ANTICOAGULATION--TAKES ASPIRIN DAILY) Atrial Fibrillation, Hypertension Neurological: No Sexually Transmitted Disease: No HIV/AIDS: No Genitourinary: No Gastrointestinal: Yes (BILATERAL INGUINAL HERNIA REPAIRS; DIVERTICULAR DISEASE NOTED ON SCREENING COLONOSCOPY; FATTY LIVER DISEASE) Abdominal Hernia, Liver Disease/Jaundice, Diverticulosis Musculoskeletal: No Endocrine: No HEENT: Yes (GLASSES; S/P RHINOPLASTY/SEPTOPLASTY) Loss of Vision: Bilateral Hearing Impairment: Denies Cancer: No Psychosocial: No Integumentary: No Blood Disorders: No Adverse Reaction/Blood Tranf: No (N/A) Physical Exam Vital Signs Vital Signs - First Documented 11/01/18 07:27 Temp 96.3 Pulse 84 Resp 18 B/P (MAP) 136/101 (113) Pulse Ox 97 Capillary Refill : Height/Weight/BMI Height: 5'8.00" Weight: 225lbs. 4.0oz. 102.046277br; 34.3 BMI Method: General Appearance: WD/WN, no apparent distress, other (MILDLY LETHARGIC) Respiratory: normal breath sounds, no respiratory distress, no accessory muscle use Cardiovascular: regular rate, rhythm, no edema, no JVD, no murmur Gastrointestinal: normal bowel sounds, soft, no organomegaly, no pulsatile mass, tenderness (DIFFUSE UPPER ABDOMINAL TENDERNESS) Extremities: normal inspection, no pedal edema, no calf tenderness, normal capillary refill Back: no CVA tenderness Neurologic/Psychiatric: supplier specialist II-XII nml as tested, no motor/sensory deficits, alert, normal mood/affect, oriented x 3 Skin: normal color, warm/dry Progress/Results/Core Measures Results/Orders Lab Results Laboratory Tests Test 11/01/18 07:34 11/01/18 10:04 Range/Units White Blood Count 6.3 4.3-11.0 10^3/uL Red Blood Count 5.05 4.35-5.85 10^6/uL Hemoglobin 16.4 13.3-17.7 G/DL Hematocrit 46 40-54 % Mean Corpuscular Volume 90 80-99 FL Mean Corpuscular Hemoglobin 33 25-34 PG Mean Corpuscular Hemoglobin Concent 36 32-36 G/DL Red Cell Distribution Width 13.2 10.0-14.5 % Platelet Count 163 130-400 10^3/uL Mean Platelet Volume 11.0 H 7.4-10.4 FL Neutrophils (%) (Auto) 84 H 42-75 % Lymphocytes (%) (Auto) 9 L 12-44 % Monocytes (%) (Auto) 7 0-12 % Eosinophils (%) (Auto) 0 0-10 % Basophils (%) (Auto) 1 0-10 % Neutrophils # (Auto) 5.3 1.8-7.8 X 10^3 Lymphocytes # (Auto) 0.6 L 1.0-4.0 X 10^3 Monocytes # (Auto) 0.4 0.0-1.0 X 10^3 Eosinophils # (Auto) 0.0 0.0-0.3 10^3/uL Basophils # (Auto) 0.0 0.0-0.1 10^3/uL Sodium Level 138 135-145 MMOL/L Potassium Level 4.1 3.6-5.0 MMOL/L Chloride Level 100 98-107 MMOL/L Carbon Dioxide Level 25 21-32 MMOL/L Anion Gap 13 5-14 MMOL/L Blood Urea Nitrogen 26 H 7-18 MG/DL Creatinine 1.27 0.60-1.30 MG/DL Estimat Glomerular Filtration Rate 57 BUN/Creatinine Ratio 20 Glucose Level 183 H 70-105 MG/DL Calcium Level 8.9 8.5-10.1 MG/DL Corrected Calcium 8.6 8.5-10.1 MG/DL Magnesium Level 1.8 1.8-2.4 MG/DL Total Bilirubin 0.8 0.1-1.0 MG/DL Aspartate Amino Transf (AST/SGOT) 20 5-34 U/L Alanine Aminotransferase (ALT/SGPT) 33 0-55 U/L Alkaline Phosphatase 47 40-136 U/L Total Protein 7.2 6.4-8.2 GM/DL Albumin 4.4 3.2-4.5 GM/DL Amylase Level 26 25-125 U/L Lipase 8 8-78 U/L Urine Color YELLOW Urine Clarity CLEAR Urine pH 5 5-9 Urine Specific [place] 1.015 L 1.016-1.022 Urine Protein 1+ H NEGATIVE Urine Glucose (UA) NEGATIVE NEGATIVE Urine Ketones 2+ H NEGATIVE Urine Nitrite NEGATIVE NEGATIVE Urine Bilirubin NEGATIVE NEGATIVE Urine Urobilinogen NORMAL NORMAL MG/DL Urine Leukocyte Esterase NEGATIVE NEGATIVE Urine RBC (Auto) NEGATIVE NEGATIVE Urine RBC NONE /HPF Urine WBC NONE /HPF Urine Squamous Epithelial Cells 0-2 /HPF Urine Crystals NONE /LPF Urine Bacteria NEGATIVE /HPF Urine Casts PRESENT /LPF Urine Hyaline Casts 2-5 H /LPF Urine Mucus NEGATIVE /LPF Urine Culture Indicated NO My Orders Orders - CHERY HINOJOSA DO Ed Iv/Invasive Line Start (11/01/18 07:25) Monitor-Rhythm Ecg Trace Only (11/01/18 07:25) Amylase (11/01/18 07:25) Cbc With Automated Diff (11/01/18 07:25) Comprehensive Metabolic Panel (11/01/18 07:25) Lipase (11/01/18 07:25) Magnesium (11/01/18 07:25) Ua Culture If Indicated (11/01/18 07:25) Ed Iv/Invasive Line Start (11/01/18 07:25) Lactated Ringers (Lr 1000 Ml Iv Solution (11/01/18 07:25) Ondansetron Injection (Zofran Injectio (11/01/18 07:30) Ekg Tracing (11/01/18 07:49) Pantoprazole Injection (Protonix Injecti (11/01/18 08:00) Hyoscyamine Sl Tablet (Levsin Sl Tablet) (11/01/18 08:00) Ct Abdomen/Pelvis W (11/01/18 08:16) Acute Abd Series (11/01/18 08:16) Ed Iv/Invasive Line Start (11/01/18 08:16) Ns Iv 1000 Ml (Sodium Chloride 0.9%) (11/01/18 08:16) Iohexol Injection (Omnipaque 350 Mg/Ml 1 (11/01/18 08:30) Received Contrast (Hold Metformin- Contr (11/01/18 08:30) Ns (Ivpb) (Sodium Chloride 0.9% Ivpb Bag (11/01/18 08:30) Fentanyl Injection (Sublimaze Injection (11/01/18 08:30) Ondansetron Injection (Zofran Injectio (11/01/18 09:30) Us Abdomen Complete 13734 (11/01/18 09:19) Hydralazine Injection (Apresoline Inject (11/01/18 10:15) Medications Given in ED Current Medications Medications Dose Ordered Sig/Gael Route Start Time Stop Time Status Last Admin Dose Admin Fentanyl Citrate 50 mcg ONCE ONCE IVP 11/01/18 08:30 11/01/18 08:31 DC 11/01/18 09:11 50 MCG Hyoscyamine Sulfate 0.25 mg ONCE ONCE PO 11/01/18 08:00 11/01/18 08:01 DC 11/01/18 08:15 0.25 MG Iohexol 100 ml ONCE ONCE IV 11/01/18 08:30 11/01/18 08:31 DC 11/01/18 08:47 100 ML Lactated Ringer's 1,000 ml @ 0 mls/hr Q0M ONCE IV 11/01/18 07:25 11/01/18 07:29 DC 11/01/18 07:54 0 MLS/HR Ondansetron HCl 8 mg ONCE ONCE IVP 11/01/18 07:30 11/01/18 07:31 DC 11/01/18 07:53 8 MG Ondansetron HCl 8 mg ONCE ONCE IVP 11/01/18 09:30 11/01/18 09:31 DC 11/01/18 09:22 8 MG Pantoprazole 40 mg ONCE ONCE IV 11/01/18 08:00 11/01/18 08:01 DC 11/01/18 08:15 40 MG Sodium Chloride 100 ml ONCE ONCE IV 11/01/18 08:30 11/01/18 08:31 DC 11/01/18 08:47 80 ML Sodium Chloride 1,000 ml @ 0 mls/hr Q0M ONCE IV 11/01/18 08:16 11/01/18 08:20 DC 11/01/18 09:11 1,000 MLS/HR Vital Signs/I&O 11/01/18 07:27 Temp 96.3 Pulse 84 Resp 18 B/P (MAP) 136/101 (113) Pulse Ox 97 Progress Progress Note : Progress Note SYMPTOMS MUCH IMPROVED AT DISMISSAL PAIN IS GONE, NAUSEA EASED NO VOMITING OR DIARRHEA DURING ER STAY BP DOWN Initial ECG Impression Date: November 01, 2018 Initial ECG Impression Time: 07:44 Initial ECG Rate: 114 Initial ECG Rhythm: A Fib/Flutter (WITH FREQUENT PVC'S) Diagnostic Imaging Comments ACUTE ABDOMEN XRAYS--NO ACUTE PROCESS CT ABDOMEN/PELVIS--NO ACUTE PROCESS PER RADIOLOGIST REPORTS @ 0918 ABDOMINAL ULTRASOUND--NO ACUTE PROCESS, PER RADIOLOGIST REPORT @ 1039 Reviewed: Reviewed by Me Departure Impression Primary Impression: Gastroenteritis Additional Impression: Upper abdominal pain Disposition: 01 HOME, SELF-CARE Condition: Stable Departure-Patient Inst. Referrals: ALANA OAKES MD (PCP/Family) Primary Care Physician Patient Instructions: Acute Abdomen (Belly Pain), Adult (DC), Viral Gastroenteritis, Adult (DC) Add. Discharge Instructions: CLEAR LIQUIDS--WATER, BROTH, JELLO, GATORADE TOMORROW IF YOU ARE BETTER, ADD BRATS DIET TO CLEAR LIQUIDS--BANANAS, RICE, APPLESAUCE, TOAST, SALTINES FOLLOW UP WITH YOUR DR IN 1-2 DAYS IF NO BETTER RETURN TO ER IF WORSE Scripts Lactobacillus Acidophilus (Acidophilus) 1 Each Capsule 2 EACH PO QID, #80 CAP Prov: MICAELA,CHERY K DO 11/01/18 Pantoprazole Sodium (Protonix) 40 Mg Tablet.dr 40 MG PO DAILY, #15 TAB Prov: MICAELA,CHERY K DO 11/01/18 Dicyclomine HCl (Dicyclomine HCl) 20 Mg Tablet 20 MG PO Q6H for Abdominal Pain, #20 TAB Prov: MICAELA,CHERY K DO 11/01/18 Hyoscyamine Sulfate (Levsin-Sl) 0.125 Mg Tab.subl 1-2 TAB SL Q4H for Abdominal Pain, #15 TAB Prov: CHERY HINOJSOA DO 11/01/18 Ondansetron (Ondansetron Odt) 8 Mg Tab.rapdis 8 MG PO Q6H for Nausea/Vomiting, #10 TAB Prov: CHERY HINOJOSA DO 11/01/18 CHERY HINOJOSA DO November 01, 2018 07:41
[2018-11-01 07:43] LABS: BASOPHILS % (AUTO) 1 % (0-10); EOSINOPHILS % (AUTO) 0 % (0-10); HEMATOCRIT 46 % (40-54); HEMOGLOBIN 16.4 G/DL (13.3-17.7); LYMPHOCYTES # (AUTO) 0.6 X 10^3 (1.0-4.0); LYMPHOCYTES % (AUTO) 9 % (12-44); MEAN CORPUSCULAR HEMOGLOBIN 33 PG (25-34); MEAN CORPUSCULAR HGB CONC 36 G/DL (32-36); MEAN CORPUSCULAR VOLUME 90 FL (80-99); MONOCYTES # (AUTO) 0.4 X 10^3 (0.0-1.0); MONOCYTES % (AUTO) 7 % (0-12); NEUTROPHILS # (AUTO) 5.3 X 10^3 (1.8-7.8); NEUTROPHILS % (AUTO) 84 % (42-75); PLATELET COUNT 163 10^3/uL (130-400); RED CELL DISTRIBUTION WIDTH 13.2 % (10.0-14.5); WHITE BLOOD COUNT 6.3 10^3/uL (4.3-11.0)
[2018-11-01] MEDS ORDERED: HYOSCYAMINE 0.125 MG (LEVSIN) TAB PO ONE (08:00)
[2018-11-01] MEDS ORDERED: PANTOPRAZOLE 40 MG (PROTONIX) VIAL IV ONE (08:00)
[2018-11-01 08:14] LABS: ALBUMIN 4.4 GM/DL (3.2-4.5); BILIRUBIN,TOTAL 0.8 MG/DL (0.1-1.0); CALCIUM 8.9 MG/DL (8.5-10.1); CREATININE SERUM 1.27 MG/DL (0.60-1.30); MAGNESIUM 1.8 MG/DL (1.8-2.4); POTASSIUM 4.1 MMOL/L (3.6-5.0); TOTAL PROTEIN 7.2 GM/DL (6.4-8.2)
[2018-11-01] MEDS ORDERED: NS IV 1000 ML 1,000 ML IV ONE (08:16)
[2018-11-01] MEDS ORDERED: HOLD METFORMIN - RECEIVED CONTRAST 20 ML VIAL IV SCH (08:30)
[2018-11-01] MEDS ORDERED: fentaNYL INJECTION 100 MCG/2 ML AMP IVP ONE (08:30)
[2018-11-01] MEDS ORDERED: NS 100 ML (IVPB) BAG IV ONE (08:30)
[2018-11-01] MEDS ORDERED: IOHEXOL 350 MG/ML 100 ML (OMNIPAQUE 350) VIAL IV ONE (08:30)
--- NOTE | 2018-11-01 08:30 | NUR ---
frequent monitoring of patient maintained, nausea and pain improving.
--- NOTE | 2018-11-01 09:07 | Diagnostic Imaging Report ---
PROCEDURE: CT abdomen and pelvis with contrast. TECHNIQUE: Multiple contiguous axial images were obtained through the abdomen and pelvis after administration of intravenous contrast. Auto Exposure Controls were utilized during the CT exam to meet ALARA standards for radiation dose reduction. INDICATION: Nausea, vomiting, and diarrhea with abdominal pain. History of GERD. Current symptoms of 2 days duration. COMPARISON: No prior examinations are available for comparison. FINDINGS: The kidneys are unobstructed, nonfocal, and nonacute. No radiodense urinary tract stones are revealed at this post contrast enhanced study. There is sigmoidal diverticulosis without features of acute diverticulitis. Some induration and likely scarring in the subcutaneous fat of the right groin is presumed previous hernia repair or other surgical intervention. No acute or focal abdominal wall defect is found aside from a minute fatty umbilical hernia. No rectus sheath collection. The liver, gallbladder, bile ducts, spleen, adrenals, and pancreas are all negative. There is no evidence for bowel obstruction. No perienteric or pericolonic edema. No ascites, abscess, hematoma, or fluid collection. The appendix is normal. The osseous structures and lung bases are nonacute. IMPRESSION: No obstructive process, inflammatory change, or acute appearing abdominal/pelvic abnormality. Dictated by: Dictated on workstation # [id number]
--- NOTE | 2018-11-01 09:12 | Diagnostic Imaging Report ---
INDICATION: Nausea, vomiting, diarrhea as well as abdominal pain. TIME OF EXAM: 8:57 AM FINDINGS: The heart size is normal. Lungs are clear. No free air is seen. There is contrast within both renal collecting systems and bladder as well as bilateral ureters from CT performed earlier same morning. Bowel gas pattern is nonobstructed. IMPRESSION: No acute feature detected. Dictated by: Dictated on workstation # [id number]
--- NOTE | 2018-11-01 09:22 | NUR ---
patient had emisis when at CT Dr Ogden notified and orders zofran to be given. This RN in room to give antiemetic at this time. will continue to monitor.
--- NOTE | 2018-11-01 10:00 | NUR ---
patient is resting quietly at this time. denies nausea and verbalizes pain has "much" improved. frequent monitoring maintained.
[2018-11-01 10:09] LABS: BILIRUBIN,URINE NEGATIVE (NEGATIVE); CLARITY,URINE CLEAR; COLOR,URINE YELLOW; GLUCOSE, URINE (UA) NEGATIVE (NEGATIVE); KETONES,URINE 2+ (NEGATIVE); LEUKOCYTE ESTERASE ,URINE NEGATIVE (NEGATIVE); NITRITE,URINE NEGATIVE (NEGATIVE); PH,URINE 5 (5-9); PROTEIN,URINE 1+ (NEGATIVE); UROBILINOGEN,URINE NORMAL (NORMAL)
[2018-11-01] MEDS ORDERED: hydrALAZINE (APESOLINE) 20 MG/ML VIAL IV ONE (10:15)
[2018-11-01 10:19] LABS: BACTERIA,URINE NEGATIVE /HPF; SQUAMOUS EPITHELIAL CELL,UR 0-2 /HPF
--- NOTE | 2018-11-01 10:35 | Diagnostic Imaging Report ---
PROCEDURE: US abdomen complete. TECHNIQUE: Multiple Real-time grayscale images were obtained over the abdomen in various projections. INDICATION: Abdominal pain. FINDINGS: The liver parenchyma appears nonfocal. Its echotexture may be mildly elevated and a mild degree of steatosis could not be excluded. No liver mass. The bile ducts are nondilated. The pancreas is largely obscured. The biliary ducts are unremarkable. The gallbladder contains no stones. There is no ascites. The right kidney is unobstructed and appears normal. The left kidney is unobstructed and appears normal. The spleen is nonfocal and normal in size. IMPRESSION: There is borderline mild elevation of the hepatic echotexture. The abdominal ultrasound is otherwise normal with no ascites, fluid collection, dilatation, or acute appearing abnormality. Dictated by: Dictated on workstation # [id number]
[2018-11-01] MEDS ORDERED: ONDA8TAB13 PO (10:41)
[2018-11-01] MEDS ORDERED: HYOS0.1283 SL (10:41)
[2018-11-01] MEDS ORDERED: DICY20TA10 PO (10:41)
[2018-11-01] MEDS ORDERED: PANT40TA2 PO (10:41)
[2018-11-01] MEDS ORDERED: LACT1CAP8 PO (10:48)
[2018-11-01 11:00] VITALS: BP 137/102
== END 2018-11-01 11:00 | disposition home or self-care (01) ==
LOC: EDUNIT# 07:18 → ER 07:19
DX: K52.9 Noninfective gastroenteritis and colitis, unspecified (principal); I48.91 Unspecified atrial fibrillation; I10 Essential (primary) hypertension; Z87.19 Personal history of other diseases of the digestive system; Z79.82 Long term (current) use of aspirin; Z90.89 Acquired absence of other organs; Z98.890 Other specified postprocedural states
CPT/HCPCS: 36415; 74022; 74177; 76700; 80053; 81000; 82150; 83690; 83735; 85025; 93005; 93041; 96361; 96374; 96375; 96376

== ENCOUNTER 2018-11-05 12:25 | Inpatient (IN) | payer BC ==
[2018-11-05] VITALS (11 sets, daily range): BP systolic 90–128; BP diastolic 63–101
[~2018-11-05] VITALS: Ht 172.7 cm; Wt 106.7 kg
[~2018-11-05 12:25] MED LIST changes: +DICY20TA10 PO; +HYOS0.1283 SL; +LACT1CAP8 PO; +ONDA8TAB13 PO; +PANT40TA2 PO
[2018-11-05] MEDS ORDERED: LACTATED RINGERS 1,000 ML IV ONE ×2 (12:39→13:03)
--- NOTE | 2018-11-05 12:45 | NUR ---
Note undone in [facility] - 11/05/[address] STATES IT IS OK TO USE THE CETRAL LINE AFTER REVIEWING X-RAY. Addendum: 11/05/18 at 1355 by RICKYDER Amendment undone in [facility] - 11/05/18 at 1355 by NSNYDER ALL FLUIDS SWITCHED FOR HL TO CENTRAL LINE
[2018-11-05 12:57] LABS: BASOPHILS % (AUTO) 0 % (0-10); EOSINOPHILS % (AUTO) 0 % (0-10); HEMATOCRIT 47 % (40-54); HEMOGLOBIN 16.7 G/DL (13.3-17.7); LYMPHOCYTES # (AUTO) 0.2 X 10^3 (1.0-4.0); LYMPHOCYTES % (AUTO) 3 % (12-44); MEAN CORPUSCULAR HEMOGLOBIN 32 PG (25-34); MEAN CORPUSCULAR HGB CONC 36 G/DL (32-36); MEAN CORPUSCULAR VOLUME 90 FL (80-99); MEAN PLATELET VOLUME 10.6 FL (7.4-10.4); MONOCYTES # (AUTO) 0.1 X 10^3 (0.0-1.0); MONOCYTES % (AUTO) 1 % (0-12); NEUTROPHILS # (AUTO) 5.8 X 10^3 (1.8-7.8); NEUTROPHILS % (AUTO) 96 % (42-75); PLATELET COUNT 244 10^3/uL (130-400); RED CELL DISTRIBUTION WIDTH 12.6 % (10.0-14.5)
[2018-11-05] MEDS ORDERED: NOREPINEPHRINE 4 MG/4 ML (LEVOPHED) AMP IV ONE (13:00)
--- NOTE | 2018-11-05 13:00 | ED Abdominal Pain ---
General Chief Complaint: Abdominal/GI Problems Stated Complaint: N/V, DIZZY, HYPOTENSION Nursing Triage Note: arrived via ems to room 3 patient is alert and oriented x 4. talking to staff. c/o nausea vomiting diarrhea, dizziness, weakness, hypotnsive per ems Sepsis Screen: No Definite Risk Source of Information: Patient, EMS Exam Limitations: No Limitations History of Present Illness Date Seen by Provider: Nov 05, 2018 Time Seen by Provider: 12:25 Initial Comments Here with report of vomiting morning and reports dizziness and near syncopal e pisode. He states that he felt like he was getting weak and so sat down on the floor but actually went down, hard and hit his back on the wall causing a hole in the wall. Denies hitting his head or any significant injury from this. Has had several days of bowel problems including pain in intermittent diarrhea or vomiting. Noted that his blood pressures been low and has not taken his blood pressure medicines. This morning his blood pressure was 120 systolic so we went ahead and took his blood pressure medicine. EMS reports that he had blood pressure 60s over 40s for a bit but that is improved now to 80s and 90s systolic. Denies fever. States that he feels like he could have diarrhea and now. Overall does not feel well. Timing/Duration: 3-4 Days, Getting Worse, Intermittent Severity/Quality: Moderate, Cramping Location: Generalized Abdomen Radiation: No Radiation Activities at Onset: None Modifying Factors: Improves With Defecating; Worsens With Exercise Associated Symptoms: No Back Pain, No Chest Pain, No Diaphoresis, No Fever/Chills; Fatigue, Nausea/Vomiting, Shortness of Air, Weakness Allergies and Home Medications Allergies Coded Allergies: No Known Drug Allergies (Unverified , 11/01/18) Home Medications Aspirin 81 Mg Tablet.dr, 81 MG PO DAILY@1900, (Reported) Chlorthalidone 25 Mg Tablet, 25 MG PO DAILY, (Reported) Dicyclomine HCl 20 Mg Tablet, 20 MG PO Q6H Prescribed by: CHERY HINOJOSA on 11/01/18 1041 Hyoscyamine Sulfate 0.125 Mg Tab.subl, 1-2 TAB SL Q4H Prescribed by: CHERY HINOJOSA on 11/01/18 1041 Lactobacillus Acidophilus 1 Each Capsule, 2 EACH PO QID Prescribed by: CHERY HINOJOSA on 11/01/18 1048 Metoprolol Succinate 50 Mg Tab.er.24h, 50 MG PO DAILY@1900, (Reported) Olmesartan Medoxomil 40 Mg Tablet, 40 MG PO DAILY, (Reported) Ondansetron 8 Mg Tab.rapdis, 8 MG PO Q6H Prescribed by: CHERY HINOJOSA on 11/01/18 1041 Pantoprazole Sodium 40 Mg Tablet.dr, 40 MG PO DAILY Prescribed by: CHERY HINOJOSA on 11/01/18 1041 Patient Home Medication List Home Medication List Reviewed: Yes Review of Systems Review of Systems Constitutional: see HPI Respiratory: Denies Cough; Shortness of Air Cardiovascular: Denies Chest Pain, Denies Edema; Lightheadedness, Syncope Gastrointestinal: Abdominal Pain, Diarrhea, Vomiting Genitourinary: No Symptoms Reported Musculoskeletal: no symptoms reported Skin: change in color Psychiatric/Neurological: See HPI, Tingling (fingers bilateral), Weakness Endocrine: No Symptoms Reported All Other Systems Reviewed Negative Unless Noted: Yes Past Yxjbiok-Emxawj-Vslgcv Hx Past Med/Social Hx: Reviewed Nursing Past Med/Soc Hx Patient Social History Alcohol Use: Regular Use Alcohol Beverage of Choice: Beer Recreational Drug Use: No Smoking Status: Never a Smoker 2nd Hand Smoke Exposure: No Recent Foreign Travel: No Contact w/Someone Who Travel: No Recent Infectious Disease Expo: No Recent Hopitalizations: No Immunizations Up To Date Tetanus Booster (TDap): Unknown PED Vaccines UTD: No Date of Influenza Vaccine: Mar 06, 2018 Seasonal Allergies Seasonal Allergies: Yes Past Medical History Surgeries: Yes Abdominal, Nose, Tonsillectomy Respiratory: No Cardiac: Yes (PT HAS DECLINED ANTICOAGULATION--TAKES ASPIRIN DAILY) Atrial Fibrillation, Hypertension Neurological: No Sexually Transmitted Disease: No HIV/AIDS: No Genitourinary: No Gastrointestinal: Yes Abdominal Hernia, Liver Disease/Jaundice, Diverticulosis Musculoskeletal: No Endocrine: No HEENT: Yes (GLASSES; S/P RHINOPLASTY/SEPTOPLASTY) Loss of Vision: Bilateral Hearing Impairment: Denies Cancer: No Psychosocial: No Integumentary: No Blood Disorders: No Adverse Reaction/Blood Tranf: No (N/A) Family Medical History Reviewed Nursing Family Hx No Pertinent Family Hx Physical Exam Vital Signs Vital Signs - First Documented 11/05/18 11/05/18 12:25 12:29 Temp 98.3 Pulse 105 Resp 22 B/P (MAP) 94/29 (50) O2 Delivery Nasal Cannula O2 Flow Rate 2.00 FiO2 90 Capillary Refill : Less Than 3 Seconds Height/Weight/BMI Height: 5'8.00" Weight: 218lbs. 4.0oz. 98.211604pk; 34.3 BMI Method:Stated General Appearance: WD/WN, no apparent distress HEENT: PERRL/EOMI, pharynx normal Neck: non-tender, full range of motion, supple, normal inspection Respiratory: lungs clear, normal breath sounds Cardiovascular: tachycardia, irregularly irregular Gastrointestinal: soft, tenderness (mild diffuse) Back: normal inspection, no CVA tenderness, no vertebral tenderness Neurologic/Psychiatric: alert, oriented x 3 Skin: normal color, warm/dry Focused Exam Lactate Level 11/05/18 12:38: Lactic Acid Level 2.89*H 11/05/18 14:50: Lactic Acid Level 3.10*H Lactic Acid Level Laboratory Tests Test 11/05/18 12:38 11/05/18 14:50 Lactic Acid Level 2.89 MMOL/L (0.50-2.00) *H 3.10 MMOL/L (0.50-2.00) *H Procedures/Interventions Lumen: triple Central Line Procedure: betadine prep, sterile drapes applied, sterile dressing applied Position: internal jugular (R) Anesthesia: Lidocaine Volume Anesthetic (ccs): 3 Complications: none Post Position: sutured, good blood return, position confirmed w/ CXR Placed with ultrasound guidance to the right internal jugular times once take with no complications. Patient tolerated the procedure well. Post chest x-ray shows central line in good position without pneumothorax. Progress/Results/Core Measures Results/Orders Lab Results Laboratory Tests Test 11/05/18 12:38 11/05/18 13:50 11/05/18 14:50 Range/Units White Blood Count 6.0 4.3-11.0 10^3/uL Red Blood Count 5.18 4.35-5.85 10^6/uL Hemoglobin 16.7 13.3-17.7 G/DL Hematocrit 47 40-54 % Mean Corpuscular Volume 90 80-99 FL Mean Corpuscular Hemoglobin 32 25-34 PG Mean Corpuscular Hemoglobin Concent 36 32-36 G/DL Red Cell Distribution Width 12.6 10.0-14.5 % Platelet Count 244 130-400 10^3/uL Mean Platelet Volume 10.6 H 7.4-10.4 FL Neutrophils (%) (Auto) 96 H 42-75 % Lymphocytes (%) (Auto) 3 L 12-44 % Monocytes (%) (Auto) 1 0-12 % Eosinophils (%) (Auto) 0 0-10 % Basophils (%) (Auto) 0 0-10 % Neutrophils # (Auto) 5.8 1.8-7.8 X 10^3 Lymphocytes # (Auto) 0.2 L 1.0-4.0 X 10^3 Monocytes # (Auto) 0.1 0.0-1.0 X 10^3 Eosinophils # (Auto) 0.0 0.0-0.3 10^3/uL Basophils # (Auto) 0.0 0.0-0.1 10^3/uL Neutrophils % (Manual) 72 % Lymphocytes % (Manual) 6 % Monocytes % (Manual) 10 % Band Neutrophils 12 % Toxic Granulation 1+ Blood Morphology Comment NORMAL Prothrombin Time 14.0 12.2-14.7 SEC INR Comment 1.0 0.8-1.4 Activated Partial Thromboplast Time 21 L 24-35 SEC D-Dimer 6.08 H 0.00-0.49 UG/ML Sodium Level 138 135-145 MMOL/L Potassium Level 3.8 3.6-5.0 MMOL/L Chloride Level 100 98-107 MMOL/L Carbon Dioxide Level 22 21-32 MMOL/L Anion Gap 16 H 5-14 MMOL/L Blood Urea Nitrogen 19 H 7-18 MG/DL Creatinine 1.86 H 0.60-1.30 MG/DL Estimat Glomerular Filtration Rate 37 BUN/Creatinine Ratio 10 Glucose Level 143 H 70-105 MG/DL Lactic Acid Level 2.89 *H 3.10 *H 0.50-2.00 MMOL/L Calcium Level 8.9 8.5-10.1 MG/DL Corrected Calcium 8.9 8.5-10.1 MG/DL Magnesium Level 1.8 1.8-2.4 MG/DL Total Bilirubin 1.2 H 0.1-1.0 MG/DL Aspartate Amino Transf (AST/SGOT) 40 H 5-34 U/L Alanine Aminotransferase (ALT/SGPT) 57 H 0-55 U/L Alkaline Phosphatase 55 40-136 U/L Myoglobin 107.1 H 10.0-92.0 NG/ML Troponin I < 0.028 <0.028 NG/ML Total Protein 6.7 6.4-8.2 GM/DL Albumin 4.0 3.2-4.5 GM/DL TSH [place] Testing 3.84 0.35-4.94 UIU/ML Blood Gas Puncture Site RT RAD Blood Gas Patient Temperature 98.3 Arterial Blood pH 7.42 7.37-7.43 Arterial Blood Partial Pressure CO2 31 L 35-45 MMHG Arterial Blood Partial Pressure O2 120 H 79-93 MMHG Arterial Blood HCO3 20 L 23-27 MMOL/L Arterial Blood Total CO2 20.9 L 21.0-31.0 MMOL/L Arterial Blood Oxygen Saturation 99 94-100 % Arterial Blood Base Excess -3.8 L -2.5-2.5 MMOL/L Rodrigo Test YES-POS Blood Gas Ventilator Setting NO Blood Gas Inspired Oxygen 3 L My Orders Orders - JAG TIDWELL MD Cbc With Automated Diff (11/05/18 12:39) Comprehensive Metabolic Panel (11/05/18 12:39) Blood Culture (11/05/18 12:39) Sputum Culture (11/05/18 12:39) Urinalysis (11/05/18 12:39) Urine Culture (11/05/18 12:39) Protime With Inr (11/05/18 12:39) Partial Thromboplastin Time (11/05/18 12:39) Chest 1 View, Ap/Pa Only (11/05/18 12:39) Ed Iv/Invasive Line Start (11/05/18 12:39) Ed Iv/Invasive Line Start (11/05/18 12:39) Ekg Tracing (11/05/18 12:39) Vital Signs Adult Sepsis Patie Q15M (11/05/18 12:39) O2 (11/05/18 12:39) Remove Rings In Anticipation O (11/05/18 12:39) Lactic Acid Analyzer (11/05/18 12:39) Lactated Ringers (Lr 1000 Ml Iv Solution (11/05/18 12:39) Magnesium (11/05/18 12:39) Cardiac Profile 1 (11/05/18 12:39) Myoglobin Serum (11/05/18 12:39) Monitor-Rhythm Ecg Trace Only (11/05/18 12:39) Lipid Panel (11/06/18 06:00) Fibrin Degradation Products (11/05/18 12:39) Sputum Culture (11/05/18 12:39) Arterial Blood Gas (11/05/18 12:52) End Tidal Co2 (11/05/18 12:52) Manual Differential (11/05/18 12:38) Norepinephrine (Levophed) (11/05/18 13:15) Ed Iv/Invasive Line Start (11/05/18 13:03) Lactated Ringers (Lr 1000 Ml Iv Solution (11/05/18 13:03) Norepinephrine (Levophed) (11/05/18 13:00) Ns (Ivpb) (Sodium Chloride 0.9%) (11/05/18 13:01) Thyroid Analyzer (11/05/18 13:47) Tick Panel With Lyme Eia (11/05/18 13:47) Ct Angio Chst/Abd/Pelv W (11/05/18 14:00) Iohexol Injection (Omnipaque 350 Mg/Ml 1 (11/05/18 14:30) Received Contrast (Hold Metformin- Contr (11/05/18 14:30) Ns (Ivpb) (Sodium Chloride 0.9% Ivpb Bag (11/05/18 14:30) Ed Iv/Invasive Line Start (11/05/18 15:02) Ns Iv 1000 Ml (Sodium Chloride 0.9%) (11/05/18 15:02) Stool Culture (11/05/18 15:18) C Difficile Ag + Toxin A/B. (11/05/18 15:18) Piperacillin Sodium/Tazobactam (Zosyn Vi (11/05/18 15:30) Enoxaparin Injection (Lovenox Injection) (11/05/18 15:30) Lidocaine 2% (Urojet) (Xylocaine Urojet) (11/05/18 16:00) Fentanyl Injection (Sublimaze Injection (11/05/18 16:00) Medications Given in ED Current Medications Medications Dose Ordered Sig/Gael Route Start Time Stop Time Status Last Admin Dose Admin Enoxaparin Sodium 100 mg ONCE ONCE SC 11/05/18 15:30 11/05/18 15:31 DC 11/05/18 15:39 100 MG Iohexol 100 ml ONCE ONCE IV 11/05/18 14:30 11/05/18 14:31 DC 11/05/18 14:24 100 ML Lactated Ringer's 1,000 ml @ 0 mls/hr Q0M ONCE IV 11/05/18 12:39 11/05/18 12:54 DC 11/05/18 13:05 1,000 MLS/HR Lactated Ringer's 1,000 ml @ 0 mls/hr Q0M ONCE IV 11/05/18 13:03 11/05/18 13:04 DC 11/05/18 13:10 1,000 MLS/HR Sodium Chloride 100 ml ONCE ONCE IV 11/05/18 14:30 11/05/18 14:31 DC 11/05/18 14:24 100 ML Sodium Chloride 1,000 ml @ 250 mls/hr Q4H ONCE IV 11/05/18 15:02 11/05/18 19:01 11/05/18 15:37 250 MLS/HR Vital Signs/I&O 11/05/18 11/05/18 11/05/18 11/05/18 12:25 12:29 12:33 13:00 Temp 98.3 Pulse 105 Resp 22 B/P (MAP) 94/29 (50) 91/65 (74) O2 Delivery Nasal Cannula Nasal Cannula O2 Flow Rate 2.00 2.00 3.00 FiO2 90 94 11/05/18 11/05/18 13:10 13:12 B/P (MAP) 90/63 (72) 103/81 (88) Blood Pressure Mean: 50 Progress Progress Note : Progress Note Seen and evaluated. IV, labs, EKG and chest x-ray ordered. Sepsis and chest pain order set was initiated. Additional fluids with LR 1 L. Monitor patient. 1300: Blood pressure declined despite fluids. Central line will be placed. Levophed will be initiated. 1400: CT angiogram of the chest, abdomen and pelvis ordered due to markedly elevated d-dimer in the setting of tachycardia, atrial fibrillation and relative hypoxia requiring oxygen. Patient does have elevated creatinine today with GFR 37 although these were both in the normal range a few days ago when he was seen. I think this is related to current dehydration which we are already treating with 3 L of fluid (1 L from EMS and 2 L ordered here). We will continue therapy per the sepsis protocol. Patient does have elevated lactic acid and there is concerns for sepsis of pulmonary embolism could be the issue as well. Monitor patient. 1517: CT results reviewed and notes bilateral subsegmental ulnar embolism. He is currently on normal saline at 250 an hour per severe sepsis protocol. Lactic acid did elevate. He is tolerating Levophed well at 0.1 mcg/kg/m and has current blood pressures greater than 100 systolic. Patient is to be admitted to the ICU. I did discuss the case with Dr. PHILLIPS. Given the ulnar embolism, we will initiate Lovenox injection at 1 mg/kg sub cutaneous twice a day as his GFR is greater than 30 and they will monitor that. Oral anticoagulants will not be effective as he has significant diarrhea. Pacheco catheter will be placed to monitor urine output. We will initiate Zosyn 4.5 g IV now and continue that for sepsis of unknown origin although I do suspect abdominal origin. Stool cultures have been ordered as well as C. difficile for toxin. Blood cultures pending. Urine culture will be pending as well prior to Zosyn administration. I did discuss the case with Dr. See at 1525 and we will go ahead and add Flagyl since there is some concerns for C. difficile infection. Patient to be admitted to ICU. I discussed all the findings and concerns with the patient and family who agree with plan. 1555: I have ordered Urojet for the Pacheco catheter as well as fentanyl 25 g IV. Heart rate 106 with O2 sat 97% on 3 L and blood pressure 130/99 currently. I attest to focused exam of his time. Initial ECG Impression Date: Nov 05, 2018 Initial ECG Impression Time: 12:31 Initial ECG Rate: 106 Initial ECG Rhythm: A Fib/Flutter Comment Atrial fibrillation with a PVC and normal axis. No evidence of ST elevation [place]. Similar to 08/17/18. Interpreted by me. Diagnostic Imaging Diagonstic Imaging: Xray Plain Films/CT/US/NM/MRI: chest Comments [facility] [place], [place] NAME: TALIA MACIAS [facility] REC#: [id number] PT STATUS: REG ER : 1955 PHYSICIAN: JAG TIDWELL MD ADMIT DATE: 11/05/18/ER Draft Date of Exam:11/05/18 CHEST 1 VIEW, AP/PA ONLY Examination: Single frontal view of the chest Indication: Central line placement. Comparison: Chest radiograph performed on 11/01/2018. Findings: Interval placement of a right IJ catheter, with distal tip projecting over the SVC. There is mild bibasilar atelectasis. The lungs are otherwise clear and the pulmonary vasculature is normal. No pneumothorax or significant pleural effusion. There is unchanged mild cardiomegaly. No acute osseous abnormality is appreciated. IMPRESSION: Mild bibasilar atelectasis, otherwise no radiographic evidence of acute chest disease. Interval placement of a right central venous catheter. Dictated on workstation # [id number] Dict: 11/05/18 1345 Trans: 11/05/18 1347 [facility] [phone] Interpreted by: DEEJAY JACOME DO Electronically signed by: [facility] Imaging: CT Plain Films/CT/US/NM/MRI: chest, abdomen, pelvis Comments NAME: TALIA MACIAS [facility] REC#: [id number] PT STATUS: REG ER : 1955 PHYSICIAN: JAG TIDWELL MD ADMIT DATE: 11/05/18/ER Signed Date of Exam: 11/05/18 CT ANGIO CHST/ABD/PELV W PROCEDURE: CT angiography of the chest with contrast and CT abdomen and pelvis with contrast. TECHNIQUE: Multiple contiguous axial images were obtained through the chest, abdomen and pelvis after administration of intravenous contrast. Reconstructed MIP CT angiography acquisitions of the aorta were then performed. Auto Exposure Controls were utilized during the CT exam to meet ALARA standards for radiation dose reduction. INDICATION: Shortness of air, nausea, vomiting as well as dizziness, weakness and elevated d-dimer. COMPARISON: Correlation is made with prior CT abdomen and pelvis from 11/01/2018. No prior CT chest is available for comparison. FINDINGS: CT ANGIOGRAM CHEST: The main pulmonary artery as well as the main right and left pulmonary arteries are widely patent. No definite filling defects are seen within lobar or segmental branches. However, there are several very small pulmonary arterial branches in the bilateral lower lobes which do not opacify well with contrast and are suspicious for subsegmental pulmonary emboli. This is seen in the posterior segments of the bilateral lower lobes. The thoracic aorta is normal caliber. There is no dissection. No pericardial or pleural fluid is detected. There is some subsegmental atelectasis or scarring in the right middle lobe. Otherwise the lungs are clear. IMPRESSION: There are findings suspicious for pulmonary emboli within subsegmental branches involving bilateral lower lobes. No central pulmonary emboli are identified. CT ABDOMEN AND PELVIS: The liver and gallbladder are unremarkable. There is no biliary duct dilatation. The pancreas and spleen are unremarkable. No adrenal mass is detected. Kidneys are unremarkable. Aorta and iliac vessels are calcified but nonaneurysmal. Celiac and SMA appear to be widely patent. The FREDRICK is patent. No free fluid in the abdomen or pelvis is seen. Bowel loops appear to be normal caliber. There are some fluid-filled small and large bowel loops, nonspecific. Appendix is visualized and unremarkable in the right lower quadrant. Bladder is decompressed. Prostate is unremarkable. IMPRESSION: There are fluid filled small and large bowel loops throughout the abdomen consistent with patient's history of diarrhea. No bowel obstruction is seen. No acute inflammatory process is detected. Dictated by: Dictated on workstation # [id number] Dict: 11/05/18 1450 Trans: 11/05/18 1527 Interpreted by: KELLIE GAMINO MD Electronically signed by: KELLIE GAMINO MD 11/05/18 1527 Departure Impression Primary Impression: Bilateral pulmonary embolism Additional Impressions: Atrial fibrillation Qualified Codes: I48.2 - Chronic atrial fibrillation Dehydration ARF (acute renal failure) Qualified Codes: N17.9 - Acute kidney failure, unspecified Diarrhea Qualified Codes: A09 - Infectious gastroenteritis and colitis, unspecified Sepsis Qualified Codes: A41.9 - Sepsis, unspecified organism Disposition: ADMITTED INPATIENT Condition: Critical Admissions Decision to Admit Reason: Admit from ER (General) Decision to Admit/Date: Nov 05, 2018 Time/Decision to Admit Time: 15:17 Departure-Patient Inst. Referrals: ALANA OAKES MD (PCP/Family) Primary Care Physician JAG TIDWELL MD Nov 05, 2018 13:00
[2018-11-05] MEDS ORDERED: NS (IVPB) 0 ML ONE (13:01)
[2018-11-05 13:03] LABS: MAGNESIUM 1.8 MG/DL (1.8-2.4)
--- NOTE | 2018-11-05 13:07 | NUR ---
Dr quintanilla in room to insert a central line.
[2018-11-05 13:12] LABS: BILIRUBIN,TOTAL 1.2 MG/DL (0.1-1.0); CALCIUM 8.9 MG/DL (8.5-10.1); CREATININE SERUM 1.86 MG/DL (0.60-1.30); POTASSIUM 3.8 MMOL/L (3.6-5.0); TOTAL PROTEIN 6.7 GM/DL (6.4-8.2)
[2018-11-05] MEDS: NOREPINEPHRINE 4 MG in NS (IVPB) 250 ML IV SCH ×2 (13:12→13:32)
[2018-11-05 13:14] LABS: FIBRIN DEGRADATION PRODUCTS 6.08 UG/ML (0.00-0.49)
[2018-11-05 13:26] LABS: BAND NEUTROPHILS 12 %; LYMPHOCYTES % (MANUAL) 6 %; MONOCYTES % (MANUAL) 10 %; NEUTROPHILS % (MANUAL) 72 %
[2018-11-05 13:27] LABS: RBC MORPH NORMAL; TOXIC GRANULATION/VACUOLAZATIO 1+
--- NOTE | 2018-11-05 13:45 | NUR ---
STATES CENTRAL LINE COULD BE USED AFTER REVIEWING X-RAY. ALL FLUIDS SWITCHED FROM HL TO CENTRAL LINE.
--- NOTE | 2018-11-05 13:48 | Diagnostic Imaging Report ---
Examination: Single frontal view of the chest Indication: Central line placement. Comparison: Chest radiograph performed on 11/01/2018. Findings: Interval placement of a right IJ catheter, with distal tip projecting over the SVC. There is mild bibasilar atelectasis. The lungs are otherwise clear and the pulmonary vasculature is normal. No pneumothorax or significant pleural effusion. There is unchanged mild cardiomegaly. No acute osseous abnormality is appreciated. IMPRESSION: Mild bibasilar atelectasis, otherwise no radiographic evidence of acute chest disease. Interval placement of a right central venous catheter. Dictated by: Dictated on workstation # [id number]
[2018-11-05 13:55] LABS: ABG BASE EXCESS -3.8 MMOL/L (-2.5-2.5); ABG OXYGEN SATURATION 99 % (94-100); ABG PCO2 31 MMHG (35-45); ABG PH 7.42 (7.37-7.43); ABG PO2 120 MMHG (79-93); ABG TCO2 20.9 MMOL/L (21.0-31.0)
[2018-11-05 13:57] LABS: ALLENS TEST YES-POS; INSPIRED O2 3 L; PATIENT TEMP 98.3; VENTILATOR NO
[2018-11-05] MEDS ORDERED: IOHEXOL 350 MG/ML 100 ML (OMNIPAQUE 350) VIAL IV ONE (14:30)
[2018-11-05] MEDS ORDERED: NS 100 ML (IVPB) BAG IV ONE (14:30)
[2018-11-05] MEDS ORDERED: HOLD METFORMIN - RECEIVED CONTRAST 20 ML VIAL IV SCH (14:30)
--- NOTE | 2018-11-05 14:30 | NUR ---
FREQUENT MONITORING MAINTAINED, BROUGHT PATIENT A GOWN ADN WATRM BLANKET.
[2018-11-05] MEDS ORDERED: NS IV 1000 ML 1,000 ML IV ONE (15:02)
--- NOTE | 2018-11-05 15:04 | Diagnostic Imaging Report ---
PROCEDURE: CT angiography of the chest with contrast and CT abdomen and pelvis with contrast. TECHNIQUE: Multiple contiguous axial images were obtained through the chest, abdomen and pelvis after administration of intravenous contrast. Reconstructed MIP CT angiography acquisitions of the aorta were then performed. Auto Exposure Controls were utilized during the CT exam to meet ALARA standards for radiation dose reduction. INDICATION: Shortness of air, nausea, vomiting as well as dizziness, weakness and elevated d-dimer. COMPARISON: Correlation is made with prior CT abdomen and pelvis from 11/01/2018. No prior CT chest is available for comparison. FINDINGS: CT ANGIOGRAM CHEST: The main pulmonary artery as well as the main right and left pulmonary arteries are widely patent. No definite filling defects are seen within lobar or segmental branches. However, there are several very small pulmonary arterial branches in the bilateral lower lobes which do not opacify well with contrast and are suspicious for subsegmental pulmonary emboli. This is seen in the posterior segments of the bilateral lower lobes. The thoracic aorta is normal caliber. There is no dissection. No pericardial or pleural fluid is detected. There is some subsegmental atelectasis or scarring in the right middle lobe. Otherwise the lungs are clear. IMPRESSION: There are findings suspicious for pulmonary emboli within subsegmental branches involving bilateral lower lobes. No central pulmonary emboli are identified. CT ABDOMEN AND PELVIS: The liver and gallbladder are unremarkable. There is no biliary duct dilatation. The pancreas and spleen are unremarkable. No adrenal mass is detected. Kidneys are unremarkable. Aorta and iliac vessels are calcified but nonaneurysmal. Celiac and SMA appear to be widely patent. The FREDRICK is patent. No free fluid in the abdomen or pelvis is seen. Bowel loops appear to be normal caliber. There are some fluid-filled small and large bowel loops, nonspecific. Appendix is visualized and unremarkable in the right lower quadrant. Bladder is decompressed. Prostate is unremarkable. IMPRESSION: There are fluid filled small and large bowel loops throughout the abdomen consistent with patient's history of diarrhea. No bowel obstruction is seen. No acute inflammatory process is detected. Dictated by: Dictated on workstation # [id number]
--- NOTE | 2018-11-05 15:20 | NUR ---
IN ROOM TO DRAW LACTIC ACID, PATIENT ALLOWED TO USE THE BEDSIDE COMODE D/T BLOOD PRESSURE IMPROVEMENT. BP IS 135/96 AT THIS TIME.
[2018-11-05] MEDS ORDERED: PIPERACILLIN SODIUM/TAZOBACTAM 4.5 GM in NS (IVPB) 100 ML IV ONE (15:30)
[2018-11-05] MEDS ORDERED: ENOXAPARIN 100 MG/1 ML (LOVENOX) SYR SC ONE (15:30)
[2018-11-05] MEDS ORDERED: LIDOCAINE UROJET 2% GEL 10 ML PKG ONE (15:43)
--- NOTE | 2018-11-05 15:50 | NUR ---
IN ROOM TO START CATHETER, LIDOCAINE JELLY INSERTED FOR PATIENT COMFORT.
[2018-11-05] MEDS ORDERED: fentaNYL INJECTION 100 MCG/2 ML AMP IVP PRN (16:00)
[2018-11-05] MEDS ORDERED: LIDOCAINE UROJET 2% GEL 10 ML PKG TOP ONE (16:00)
[2018-11-05 16:12] LABS: GLUCOSE, URINE (UA) NEGATIVE (NEGATIVE); KETONES,URINE 1+ (NEGATIVE); LEUKOCYTE ESTERASE ,URINE 1+ (NEGATIVE); NITRITE,URINE NEGATIVE (NEGATIVE); PH,URINE 5 (5-9); PROTEIN,URINE 3+ (NEGATIVE); UROBILINOGEN,URINE 1 MG/DL (NORMAL)
[2018-11-05] MEDS ORDERED: WATER (STERILE) FOR INJECTION 20 ML ONE (16:12)
[2018-11-05] MEDS ORDERED: PIPERACILLIN/TAZO 4.5 GM VIAL (ZOSYN) IV ONE ×2 (16:12→22:15)
[2018-11-05 16:20] LABS: BILIRUBIN,URINE 1+ (NEGATIVE); CLARITY,URINE SL CLOUDY; COLOR,URINE DARK YELLOW
[2018-11-05 16:22] LABS: BACTERIA,URINE TRACE /HPF; WBC,URINE 0-2 /HPF
[2018-11-05 16:23] LABS: GRANULAR CASTS,URINE 0-2 /LPF; RBC,URINE RARE /HPF
--- NOTE | 2018-11-05 16:30 | NUR ---
PATIENT REQUESTS PAIN MEDICATION PRIOR TO TAKING HIM TO HIS ROOM IN ICU. FENTANYL GIVEN PER DR TIDWELL ORDERED.
--- NOTE | 2018-11-05 16:40 | NUR ---
TALIA MACIAS admitted to room CU5-1, with an admitting diagnosis of BILAT PE, HYPOTENSION, DIARRHEA, DEHYRATION, SEPSIS, on 11/05/18 from ER via STRETCHER, accompanied by STAFF.TALIA MACIAS introduced to surroundings, call light, bed controls, phone, TV, temperature control, lights, meal times, smoking policy, visitor policy, side rail policy, bathrooms and showers. Patient Rights given to patient in the handbook. TALIA MACIAS verbalizes understanding that [facility] is not responsible for the loss or damage to any personal effects or valuables that are kept in the patients posession during their hospitalization. The following Patient Care Plans were discussed with the PT: Discharge Planning, INEFFECTIVE BREATHING PATTERN,HIGH RISK BLEEDING, and ANXIETY. TALIA MACIAS verbalizes understanding of Interdisciplinary Patient Education. Patient and family were informed about the Rapid Response Team and its purpose.
[2018-11-05] MEDS ORDERED: RT-ALBUTEROL/IPRATROPIUM 3 ML (DUONEB) VIAL INH PRN ×2 (17:30→20:45)
[2018-11-05] MEDS ORDERED: NOREPINEPHRINE 4 MG in NS (IVPB) 250 ML IV SCH (20:29)
[2018-11-05] MEDS ORDERED: NOREPINEPHRINE 4 MG/NS 250 ML DRIP IV SCH ×2 (20:30)
[2018-11-05] MEDS: RT-ALBUTEROL/IPRATROPIUM 3 ML (DUONEB) VIAL INH SCH (20:31)
[2018-11-05] MEDS ORDERED: PIPERACILLIN/TAZO 4.5 GM/NS 100 ML IV ONE ×2 (20:45)
[2018-11-05] MEDS: NS IV 1000 ML 1,000 ML IV SCH (20:51)
[2018-11-05] MEDS: metroNIDAZOLE 500 MG/100 ML IVPB (PRE-MIX) IV SCH (20:52)
[2018-11-05] MEDS: ENOXAPARIN 100 MG/1 ML (LOVENOX) SYR SC SCH (20:53)
[2018-11-05] MEDS ORDERED: NS (IVPB) 100 ML ONE (22:16)
[2018-11-05] MEDS: fentaNYL INJECTION 100 MCG/2 ML AMP INJ PRN (22:30)
[2018-11-05] MEDS: PIPERACILLIN/TAZOBACTAM (BULK) 4.5 GM in NS (IVPB) 100 ML IV SCH (22:30)
[2018-11-06] VITALS (19 sets, daily range): BP systolic 98–153; BP diastolic 69–95
[2018-11-06] MEDS: NS IV 1000 ML 1,000 ML IV SCH ×2 (00:30→04:43)
[2018-11-06] MEDS: metroNIDAZOLE 500 MG/100 ML IVPB (PRE-MIX) IV SCH ×3 (02:23→20:06)
[2018-11-06 03:25] LABS: BASOPHILS % (AUTO) 1 % (0-10); EOSINOPHILS % (AUTO) 1 % (0-10); HEMATOCRIT 37 % (40-54); HEMOGLOBIN 13.5 G/DL (13.3-17.7); LYMPHOCYTES # (AUTO) 0.3 X 10^3 (1.0-4.0); LYMPHOCYTES % (AUTO) 6 % (12-44); MEAN CORPUSCULAR HEMOGLOBIN 33 PG (25-34); MEAN CORPUSCULAR HGB CONC 37 G/DL (32-36); MEAN CORPUSCULAR VOLUME 90 FL (80-99); MEAN PLATELET VOLUME 10.2 FL (7.4-10.4); MONOCYTES # (AUTO) 0.6 X 10^3 (0.0-1.0); MONOCYTES % (AUTO) 13 % (0-12); NEUTROPHILS # (AUTO) 3.3 X 10^3 (1.8-7.8); NEUTROPHILS % (AUTO) 79 % (42-75); PLATELET COUNT 179 10^3/uL (130-400); RED CELL DISTRIBUTION WIDTH 12.5 % (10.0-14.5); WHITE BLOOD COUNT 4.1 10^3/uL (4.3-11.0)
[2018-11-06 03:46] LABS: CREATININE SERUM 1.48 MG/DL (0.60-1.30); MAGNESIUM 1.5 MG/DL (1.8-2.4); POTASSIUM 3.2 MMOL/L (3.6-5.0)
[2018-11-06] MEDS: fentaNYL INJECTION 100 MCG/2 ML AMP INJ PRN ×3 (04:30→22:31)
[2018-11-06] MEDS ORDERED: KCL 20 MEQ TAB (K-DUR) PO SCH (06:00)
[2018-11-06] MEDS ORDERED: MAGNESIUM 1 GM/100 ML IVPB 100 ML IV SCH (06:00)
[2018-11-06] MEDS: MAGNESIUM 1 GM/100 ML IVPB 100 ML IV SCH ×3 (06:00→09:07)
[2018-11-06] MEDS ORDERED: POTASSIUM CL 10MEQ/50ML IVPB 50 ML IV SCH (06:00)
[2018-11-06] MEDS: POTASSIUM CL 10MEQ/50ML IVPB 50 ML IV SCH ×7 (06:02→10:19)
[2018-11-06] MEDS ORDERED: NS (IVPB) 100 ML ONE (06:23)
[2018-11-06] MEDS ORDERED: PIPERACILLIN/TAZO 4.5 GM VIAL (ZOSYN) IV ONE (06:23)
[2018-11-06] MEDS: PIPERACILLIN/TAZOBACTAM (BULK) 4.5 GM in NS (IVPB) 100 ML IV SCH ×3 (06:59→22:29)
[2018-11-06] MEDS ORDERED: NS IV 1000 ML 1,000 ML IV SCH (07:00)
[2018-11-06] MEDS ORDERED: LACTATED RINGERS 1,000 ML IV SCH (07:45)
--- NOTE | 2018-11-06 07:45 | Pulmonary Consultation ---
History of Present Illness History of Present Illness Date of Consultation 11/06/18 07:37 Time Seen by Provider: 07:37 Date of Admission History of Present Illness 63yo presented to ED secondary to persistent diarrhea, and dizziness. He was found to be hypotensive with EMS. Pt was also found to have acute bilateral small segmental PEs. Allergies and Home Medications Allergies Coded Allergies: No Known Drug Allergies (Unverified , 11/01/18) Home Medications Aspirin 81 Mg Tablet.dr, 81 MG PO DAILY@1900, (Reported) Chlorthalidone 25 Mg Tablet, 25 MG PO DAILY, (Reported) Dicyclomine HCl 20 Mg Tablet, 20 MG PO Q6H Prescribed by: CHERY HINOJOSA on 11/01/18 1041 Hyoscyamine Sulfate 0.125 Mg Tab.subl, 1-2 TAB SL Q4H Prescribed by: CHERY HINOJOSA on 11/01/18 1041 Lactobacillus Acidophilus 1 Each Capsule, 2 EACH PO QID Prescribed by: CHERY HINOJOSA on 11/01/18 1048 Metoprolol Succinate 50 Mg Tab.er.24h, 50 MG PO DAILY@1900, (Reported) Olmesartan Medoxomil 40 Mg Tablet, 40 MG PO DAILY, (Reported) Ondansetron 8 Mg Tab.rapdis, 8 MG PO Q6H Prescribed by: CHERY HINOJOSA on 11/01/18 1041 Pantoprazole Sodium 40 Mg Tablet.dr, 40 MG PO DAILY Prescribed by: CHERY HINOJOSA on 11/01/18 1041 Past Bfrlnfs-Xztirj-Ydpqvc Hx Past Med/Social Hx: Reviewed Nursing Past Med/Soc Hx Patient Social History Alcohol Use: Regular Use Number of Drinks Today: AA Alcohol Beverage of Choice: Beer Recreational Drug Use: No Smoking Status: Never a Smoker 2nd Hand Smoke Exposure: No Recent Foreign Travel: No Contact w/Someone Who Travel: No Recent Infectious Disease Expo: No Recent Hopitalizations: No Immunizations Up To Date Tetanus Booster (TDap): Unknown PED Vaccines UTD: No Date of Influenza Vaccine: Mar 06, 2018 Seasonal Allergies Seasonal Allergies: Yes Past Medical History Surgeries: Yes Abdominal, Nose, Tonsillectomy Respiratory: No Cardiac: Yes (PT HAS DECLINED ANTICOAGULATION--TAKES ASPIRIN DAILY) Atrial Fibrillation, Hypertension Neurological: No Sexually Transmitted Disease: No HIV/AIDS: No Genitourinary: No Gastrointestinal: Yes Abdominal Hernia, Liver Disease/Jaundice, Diverticulosis Musculoskeletal: No Endocrine: No HEENT: Yes (GLASSES; S/P RHINOPLASTY/SEPTOPLASTY) Loss of Vision: Bilateral Hearing Impairment: Denies Cancer: No Psychosocial: No Integumentary: No Blood Disorders: No Adverse Reaction/Blood Tranf: No (N/A) Family Medical History Reviewed Nursing Family Hx Alcoholism 19 FATHER Cardiovascular disease G8 BROTHER FH: atrial fibrillation 19 MOTHER G8 BROTHER Gastroenteritis G8 BROTHER No Pertinent Family Hx Sepsis Event Evaluation Height, Weight, BMI Height: 5'8.00" Weight: 229lbs. 0.3oz. 103.482634cu; 34.3 BMI Method:Stated Exam Exam Vital Signs Date Time Temp Pulse Resp B/P (MAP) Pulse Ox O2 Delivery O2 Flow Rate FiO2 11/06/18 07:00 109 11/06/18 06:00 90 12 105/69 (81) 98 Room Air 11/06/18 05:00 106 17 103/81 (88) 100 Room Air 11/06/18 04:10 Room Air 11/06/18 04:00 Nasal Cannula 2.00 11/06/18 04:00 95 12 101/78 (86) 100 Nasal Cannula 3.00 11/06/18 03:24 98.0 11/06/18 03:00 97 17 111/85 (94) 99 Nasal Cannula 3.00 11/06/18 02:00 105 17 115/89 (98) 99 Nasal Cannula 3.00 11/06/18 01:00 107 11/06/18 01:00 107 21 106/80 (89) 100 Nasal Cannula 3.00 11/06/18 00:00 112 14 98/79 (85) 99 Nasal Cannula 3.00 11/06/18 00:00 99.6 11/06/18 00:00 Nasal Cannula 2.00 11/05/18 23:00 125 12 100/76 (84) 98 Nasal Cannula 3.00 11/05/18 22:00 130 14 111/76 (88) 98 Nasal Cannula 3.00 11/05/18 21:45 101.3 11/05/18 21:00 119 15 126/87 (100) 100 Nasal Cannula 3.00 11/05/18 20:34 97 Nasal Cannula 3.00 11/05/18 20:00 Nasal Cannula 2.00 11/05/18 20:00 100.3 11/05/18 20:00 101 16 125/74 (91) 100 Nasal Cannula 3.00 11/05/18 19:00 97 12 117/81 (93) 100 Nasal Cannula 3.00 11/05/18 19:00 98 11/05/18 18:00 106 11 116/81 (93) 99 Nasal Cannula 3.00 11/05/18 17:41 100.4 11/05/18 17:22 100.3 11/05/18 17:16 99 Nasal Cannula 3.00 11/05/18 17:12 113 11/05/18 17:10 105 99 32 11/05/18 17:00 107 15 123/100 (108) 100 Nasal Cannula 3.00 11/05/18 16:45 101.2 11/05/18 16:45 98 19 128/101 (110) 98 Nasal Cannula 3.00 11/05/18 16:40 Nasal Cannula 3.00 11/05/18 16:40 98.3 105 18 117/85 (96) 100 Nasal Cannula 3.00 11/05/18 13:12 103/81 (88) 11/05/18 13:10 90/63 (72) 11/05/18 13:00 Nasal Cannula 3.00 94 11/05/18 12:33 91/65 (74) 11/05/18 12:29 98.3 105 22 94/29 (50) 2.00 11/05/18 12:25 Nasal Cannula 2.00 90 I & O 11/06/18 07:00 Intake Total 5474 ml Output Total 675 ml Balance 4799 ml Height & Weight Height: 5'8.00" Weight: 229lbs. 0.3oz. 103.266540ug; 34.3 BMI Method:Stated Capillary Refill: Less Than 3 Seconds Gastrointestinal: soft, tenderness (mild diffuse) Results Lab Laboratory Tests 11/05/18 12:38 11/06/18 03:17 Assessment/Plan Assessment/Plan Acute small questionable segmental bilateral PEs -Continue Lovenox for now -PT's Sp02 is 98% on RA -Check Bilateral dopplers Gastroenteritis/Diarrhea - persistent -Check stool cultures Cdiff and Listeria -Stool cultures pending -Continue Abx Hypotension - improved with IVF Dehydration -Give another liter bolus of IVF Hypokalemia/hypomag -replace ARF -Monitor -Continue IVF Sepsis FERNANDO MCGILL DO Nov 06, 2018 07:45
--- NOTE | 2018-11-06 08:10 | Diagnostic Imaging Report ---
INDICATION: Dyspnea COMPARISON: 11/05/2018 TECHNIQUE: Single radiograph of the chest dated 11/06/2018. FINDINGS: Right IJ central venous catheter stable. The cardiac silhouette is mildly enlarged, though stable. No significant pulmonary vascular congestion. Mild bibasilar predominantly interstitial opacities are again identified, appearing stable. No new focal pulmonary opacity. No significant pleural effusion. No pneumothorax. No acute osseous abnormality. IMPRESSION: Similar appearing examination demonstrating mild bibasilar atelectasis and/or pneumonitis with stable cardiomegaly without overt congestive heart failure. Dictated by: Dictated on workstation # [id number]
[2018-11-06] MEDS: ENOXAPARIN 100 MG/1 ML (LOVENOX) SYR SC SCH ×2 (08:25→22:29)
[2018-11-06] MEDS: LACTATED RINGERS 1,000 ML IV SCH ×3 (08:27→22:28)
[2018-11-06] MEDS: RT-ALBUTEROL/IPRATROPIUM 3 ML (DUONEB) VIAL INH SCH ×2 (08:44→21:49)
--- NOTE | 2018-11-06 08:48 | NUR ---
LAB NOTIFIED TO TEST STOOL CS FOR LISTERIA. PT PLACED IN CONTACT ISOLATION.
--- NOTE | 2018-11-06 09:02 | NUR ---
PER L A LISTERIA SCREEN IS INCLUDED IN A STOOL CX. NO ADDITIONAL TESTING REQUIRED.
--- NOTE | 2018-11-06 09:08 | NUR ---
pt to receive a total of 3gm of mag this am per dr valdes. 4th gm not given per
--- NOTE | 2018-11-06 09:45 | Diagnostic Imaging Report ---
PROCEDURE: US Venous Lower Ext Myles. TECHNIQUE: Multiple real-time grayscale images were obtained over the lower extremities in various projections, bilaterally. Additional duplex Doppler and color Doppler images were also obtained. INDICATION: Bilateral pulmonary emboli. There is no evidence of right or left lower extremity DVT. Both lower extremity deep venous systems demonstrate normal compressibility with normal response to augmentation and Valsalva. No fluid collection or mass is seen. IMPRESSION: No evidence of right or left lower extremity DVT. Dictated by: Dictated on workstation # [id number]
[2018-11-06 14:13] LABS: BUN/CREATININE RATIO 11; CALCIUM 7.3 MG/DL (8.5-10.1); CARBON DIOXIDE 21 MMOL/L (21-32); CHLORIDE 112 MMOL/L (98-107); CREATININE SERUM 1.18 MG/DL (0.60-1.30); GFR ESTIMATED > 60; GLUCOSE 96 MG/DL (70-105); POTASSIUM 3.7 MMOL/L (3.6-5.0); SODIUM 137 MMOL/L (135-145)
--- NOTE | 2018-11-06 15:43 | NUR ---
PER MILLER RUBI FOR PT TO TRANSFER TO 4TH FLOOR. DC CENTRAL LINE AND DC LAW PRIOR TO TRANSFER.
--- NOTE | 2018-11-06 15:44 | NUR ---
SPOKE WITH THE PATIENT ABOUT HIS MEDICATIONS. HE VERIFIED WHAT HE NORMALLY TAKES AND WHAT HE HAS LEFT OF THE SEVERAL SHORT TERMS SCRIPTS HE FILLED FROM THE EMERGENCY ROOM. [facility] FILLED: 10-16-18 OLMESARTAN 40MG DAILY 10-16-18 METOPROLOL ER 50MG DAILY 08-31-18 CHLORTHALIDONE 25MG DAILY #90 HE ALSO TAKES ASPIRIN 81MG DAILY OTC HE FILLED THE FOLLOWING FROM THE ED 11-01-18: PROTONIX 40MG DAILY #15 HYOSCYAMINE 0.125MG 1-2 Q4H #15 (GONE) FLORANEX 2 QID #80 (GONE) ZOFRAN ODT 8MG Q6H #10 (GONE) DICYCLOMINE 20MG Q6H #20 (HAS A FEW LEFT) I LEFT THE DICYCLOMINE AND PROTONIX ON HIS MED REC SINCE HE HAS A FEW LEFT BUT REMOVED THE OTHER MEDICATIONS SINCE HE HAS TAKEN ALL THE SUPPLY HE HAD ON HAND.
--- NOTE | 2018-11-06 17:07 | History & Physical-Hospitalist ---
History of Present Illness HPI/Chief Complaint The patient is a 63-year-old white male who presented to the emergency room yesterday. He reported that he had been to the ER on 11/01 with complaints of vomiting and diarrhea. He had received IV fluids and was discharged with Zofran. He reported that he did relatively well for a day or 2 then had nausea again he reported that on Saturday 11/04 he had felt quite well and was able to eat. He did continue to have watery stools. He arose on the morning of 11/05 again feeling well. He took his blood pressure medicine and attempted to walk down the lowry to the bathroom. He reports that he became very wobbly and sank to the floor. The EMS service was called and when they arrived they found in his blood pressure to be 60/40. IVs were started and he was brought to the emergency room. His initial vital signs showed a temperature of 101.2 and a pulse of 125. Source: patient Exam Limitations: no limitations Date Seen 11/06/18 Time Seen by a Provider: 16:55 Attending Physician Adilson Manrique MD PCP Adilson Manrique MD Referring Physician Date of Admission Nov 05, 2018 at 15:32 Home Medications & Allergies Home Medications Reviewed patient Home Medication Reconciliation performed by pharmacy medication reconciliations occupational therapy technician and/or nursing. Patients Allergies have been reviewed. Allergies Allergies Coded Allergies No Known Drug Allergies (Unverified11/01/18) Past Hqiyyrx-Crmhwp-Vhqllu Hx Past Med/Social Hx: Reviewed Nursing Past Med/Soc Hx Patient Social History Alcohol Use: Regular Use Number of Drinks Today: AA Alcohol Beverage of Choice: Beer Recreational Drug Use: No Smoking Status: Never a Smoker 2nd Hand Smoke Exposure: No Recent Foreign Travel: No Contact w/other who traveled: No Recent Hopitalizations: No Recent Infectious Disease Expo: No Immunizations Up To Date Tetanus Booster (TDap): Unknown Pediatric: No Date of Influenza Vaccine: Mar 06, 2018 Seasonal Allergies Seasonal Allergies: Yes Past Medical History Surgeries: Abdominal, Nose, Tonsillectomy Cardiac: Atrial Fibrillation, Hypertension Sexually Transmitted Disease: No HIV/AIDS: No Gastrointestinal: Abdominal Hernia, Liver Disease/Jaundice, Diverticulosis Loss of Vision: Bilateral Hearing Impairment: Denies History of Blood Disorders: No Adverse Reaction to Blood Love: No (N/A) Family History Reviewed Nursing Family Hx Alcoholism 19 FATHER Cardiovascular disease G8 BROTHER FH: atrial fibrillation 19 MOTHER G8 BROTHER Gastroenteritis G8 BROTHER No Pertinent Family Hx Physical Exam Physical Exam Vital Signs Vital Signs - First Documented 11/05/18 11/05/18 11/05/18 12:25 12:29 16:40 Temp 98.3 Pulse 105 Resp 22 B/P (MAP) 94/29 (50) Pulse Ox 100 O2 Delivery Nasal Cannula O2 Flow Rate 2.00 FiO2 90 Capillary Refill : Less Than 3 Seconds Height, Weight, BMI Height: 5'8.00" Weight: 229lbs. 0.3oz. 103.956980yb; 34.3 BMI Method:Stated Results Results/Procedures Labs Laboratory Tests 11/05/18 12:38 11/06/18 03:17 11/06/18 13:20 Patient resulted labs reviewed. Clinical Quality Measures DVT/VTE Risk/Contraindication: Risk Factor Score Per Nursin RFS Level Per Nursing on Admit: 4+=Very High EUGENIE PHILLIPS MD Nov 06, 2018 17:07
--- NOTE | 2018-11-06 17:15 | NUR ---
PT TRANSFERRED TO ROOM 413 VIA W/ STAFF/PERSONAL BELONGINGS. REPORT GIVEN TO DAYNA HARRIS WHO ASSUMES CARE OF PT. NO QUESTIONS/CONCERNS VOICED.
--- NOTE | 2018-11-06 17:20 | NUR ---
Report received from Raven RN, patient in room and oriented to room and call light. Family at bedside. Patient voices no complaints at this time, will continue to monitor.
[2018-11-06] MEDS ORDERED: ONDANSETRON 4 MG/2 ML (SDV) Z0FRAN IVP PRN (22:30)
[2018-11-07 00:19] VITALS: BP 114/71
[2018-11-07] MEDS: LACTATED RINGERS 1,000 ML IV SCH ×4 (04:30→20:07)
[2018-11-07] MEDS: PIPERACILLIN/TAZOBACTAM (BULK) 4.5 GM in NS (IVPB) 100 ML IV SCH ×3 (05:53→22:04)
[2018-11-07 06:23] LABS: BASOPHILS % (AUTO) 0 % (0-10); EOSINOPHILS % (AUTO) 0 % (0-10); HEMATOCRIT 40 % (40-54); HEMOGLOBIN 13.9 G/DL (13.3-17.7); LYMPHOCYTES % (AUTO) 16 % (12-44); MEAN CORPUSCULAR HEMOGLOBIN 32 PG (25-34); MEAN CORPUSCULAR HGB CONC 35 G/DL (32-36); MEAN CORPUSCULAR VOLUME 92 FL (80-99); MEAN PLATELET VOLUME 10.8 FL (7.4-10.4); MONOCYTES # (AUTO) 0.9 X 10^3 (0.0-1.0); MONOCYTES % (AUTO) 13 % (0-12); NEUTROPHILS # (AUTO) 4.5 X 10^3 (1.8-7.8); NEUTROPHILS % (AUTO) 70 % (42-75); PLATELET COUNT 224 10^3/uL (130-400); RED CELL DISTRIBUTION WIDTH 13.6 % (10.0-14.5); WHITE BLOOD COUNT 6.3 10^3/uL (4.3-11.0)
[2018-11-07 06:46] LABS: CALCIUM 7.6 MG/DL (8.5-10.1); CREATININE SERUM 1.31 MG/DL (0.60-1.30); MAGNESIUM 2.4 MG/DL (1.8-2.4); PHOSPHORUS 2.8 MG/DL (2.3-4.7)
[2018-11-07] MEDS: RT-ALBUTEROL/IPRATROPIUM 3 ML (DUONEB) VIAL INH SCH ×2 (07:04→20:05)
[2018-11-07 08:09] VITALS: BP 117/78
[2018-11-07] MEDS: metroNIDAZOLE 500 MG/100 ML IVPB (PRE-MIX) IV SCH ×2 (09:15→20:11)
[2018-11-07] MEDS: ENOXAPARIN 100 MG/1 ML (LOVENOX) SYR SC SCH ×2 (09:16→20:11)
--- NOTE | 2018-11-07 10:24 | Pulmonary Progress Note ---
Subjective Time Seen by a Provider: 10:37 Subjective/Events-last exam Pt complains of abdominal pain however denies SOB. Sepsis Event Evaluation Height, Weight, BMI Height: 5'8.00" Weight: 229lbs. 3.0oz. 103.561684gc; 34.3 BMI Method:Stated Focused Exam Lactate Level 11/05/18 12:38: Lactic Acid Level 2.89*H 11/05/18 14:50: Lactic Acid Level 3.10*H Exam Exam Vital Signs Date Time Temp Pulse Resp B/P (MAP) Pulse Ox O2 Delivery O2 Flow Rate FiO2 11/07/18 08:09 98.2 82 18 117/78 (91) 94 Room Air 11/07/18 07:04 94 Room Air 11/07/18 00:19 97.9 101 18 114/71 (85) 92 Room Air 11/06/18 21:52 93 Room Air 11/06/18 20:00 Room Air 11/06/18 19:50 98.1 87 20 119/81 (94) 95 Room Air 11/06/18 17:20 97.9 82 20 153/95 (114) 98 Room Air 11/06/18 17:00 94 17 100 Room Air 11/06/18 16:00 98 15 134/87 (103) 98 Room Air 11/06/18 16:00 98.0 11/06/18 15:01 Room Air 11/06/18 15:00 93 15 128/90 (103) 97 Room Air 11/06/18 14:00 106 15 119/92 (101) 98 Room Air 11/06/18 13:00 96 11/06/18 13:00 96 18 105/87 (93) 98 Room Air 11/06/18 12:00 95 16 115/81 (92) 97 Room Air 11/06/18 12:00 97.5 11/06/18 11:28 Room Air 11/06/18 11:00 102 19 122/79 (93) 100 Room Air I & O 11/07/18 07:00 Intake Total 6380 ml Output Total 1205 ml Balance 5175 ml Height & Weight Height: 5'8.00" Weight: 229lbs. 3.0oz. 103.843041lv; 34.3 BMI Method:Stated General Appearance: No Apparent Distress, WD/WN HEENT: PERRL/EOMI, Normal ENT Inspection, Pharynx Normal Neck: Full Range of Motion, Non Tender, Supple Respiratory: Chest Non Tender, Lungs Clear, Normal Breath Sounds, No Accessory Muscle Use, No Respiratory Distress Cardiovascular: Regular Rate, Rhythm, No Edema, No Gallop Capillary Refill: Less Than 3 Seconds Gastrointestinal: soft, tenderness (mild diffuse) Extremity: Normal Capillary Refill, No Pedal Edema Neurologic/Psychiatric: Alert, Oriented x3 Skin: Normal Color, Warm/Dry Lymphatic: No Adenopathy Results Lab Laboratory Tests 11/05/18 12:38 11/06/18 03:17 11/06/18 13:20 11/07/18 05:45 Assessment/Plan Assessment/Plan Acute small questionable segmental bilateral PEs - -Lovenox -Pt can be switched to PO anticoagulation if he is agreeable. -PT does have Afib so even if not really a PE he should be anticoagulated. -PT's Sp02 is 98% on RA - Bilateral dopplers - negative Gastroenteritis/Diarrhea - persistent -Stool cultures pending -Abx ARF -Monitor -Continue IVF Sepsis FERNANDO MCGILL DO Nov 07, 2018 10:24
--- NOTE | 2018-11-07 12:08 | Progress Note-Hospitalist ---
Subjective HPI/CC On Admission Date Seen by Provider: Nov 07, 2018 Time Seen by Provider: 10:00 The patient is a 63-year-old white male who presented to the emergency room yesterday. He reported that he had been to the ER on 11/01 with complaints of vomiting and diarrhea. He had received IV fluids and was discharged with Zofran. He reported that he did relatively well for a day or 2 then had nausea again he reported that on Saturday 11/04 he had felt quite well and was able to eat. He did continue to have watery stools. He arose on the morning of 11/05 again feeling well. He took his blood pressure medicine and attempted to walk down the lowry to the bathroom. He reports that he became very wobbly and sank to the floor. The EMS service was called and when they arrived they found in his blood pressure to be 60/40. IVs were started and he was brought to the emergency room. His initial vital signs showed a temperature of 101.2 and a pulse of 125. Subjective/Events-last exam Patient has been on liquids he has been able to keep them down with no vomiting but does lead to burning within 2 minutes of ingestion beginning in the epigastric area seems to work its way down and then does lead to watery nonbloody diarrhea. He's had no night sweats chills or fever and is feeling better this morning. He is not having any colicky pain last night or this morning but does have more of a constant burning discomfort aggravated by food for about an hour after that he does get benefit from fentanyl in regards the pain he does develop massive nausea postprandially and reports that he is still afraid to eat. Focused Exam Lactate Level 11/05/18 12:38: Lactic Acid Level 2.89*H 11/05/18 14:50: Lactic Acid Level 3.10*H Objective Exam Vital Signs Vital Signs Date Time Temp Pulse Resp B/P (MAP) Pulse Ox O2 Delivery O2 Flow Rate FiO2 11/07/18 09:00 94 Room Air 94 11/07/18 08:09 98.2 82 18 117/78 (91) 11/06/18 04:00 2.00 Capillary Refill : Less Than 3 Seconds General Appearance: No Apparent Distress, WD/WN HEENT: PERRL/EOMI, Normal ENT Inspection, Pharynx Normal Neck: Full Range of Motion, Non Tender, Supple Respiratory: Chest Non Tender, Lungs Clear, Normal Breath Sounds, No Accessory Muscle Use, No Respiratory Distress Cardiovascular: No Edema, No Gallop, No JVD, No Murmur, Irregularly Irregular (Heart rate in the 80s currently) Gastrointestinal: Normal Bowel Sounds, No Organomegaly, Non Tender, Distended (Mild distention), Other (No masses noted.) Extremity: Normal Capillary Refill, No Pedal Edema Neurologic/Psychiatric: Alert, Oriented x3 Skin: Normal Color, Warm/Dry Lymphatic: No Adenopathy Results/Procedures Lab Laboratory Tests 11/06/18 13:20 11/07/18 05:45 Patient resulted labs reviewed. Assessment/Plan Assessment and Plan Assess & Plan/Chief Complaint A/P 1. Gastroenteritis with significant dehydration and volume contraction and syncope due to hypotension. Cannot rule out possibility of sepsis although his lactic acidosis may be hypotension related. He is currently responding to volume replacement and does have other risk for bacterial enteritis such as Salmonella Shigella or enterotoxigenic Escherichia coli to name the most common culprits agree with antibiotics and continuing fluids. We'll try Zofran before meals he was told to continue liquids for now and if symptoms are settling down he can be advanced to a brat diet. 2. Chronic atrial fibrillation again had a discussion recommending when everything was said and done anticoagulant therapy discussed in detail his chads vascular score gives a yearly stroke risk of around 3 percent. He has been against anticoagulation in the past but I had a discussion in front of his about the fact that current anticoagulant therapy has but the same risk of bleeding is aspirin significantly more effective in reducing strokes which can be catastrophic in regards to quality of life. 3. Questionable pulmonary embolism small if indeed present not likely contributing to symptoms we discussed that if this was indeed the case it was yet another reason in favor of anticoagulant therapy to reduce her risk of pulmonary embolism which can also have catastrophic consequences from the standpoint of quality of life or quantity of life. Ex 4. History of hypertension continue to hold antihypertensive medication. Clinical Quality Measures DVT/VTE Risk/Contraindication: Risk Factor Score Per Nursin RFS Level Per Nursing on Admit: 4+=Very High Other: SEE INTERVENTIONS FOR DETAILS ALANA OAKES MD Nov 07, 2018 12:08
[2018-11-07] MEDS: ONDANSETRON 4 MG (ZOFRAN) ORAL DISSOLVE TAB PO SCH ×2 (12:19→16:04)
[2018-11-07 16:42] VITALS: BP 120/82
[2018-11-08] VITALS (8 sets, daily range): BP systolic 119–150; BP diastolic 68–94
[2018-11-08 05:34] LABS: BASOPHILS % (AUTO) 1 % (0-10); EOSINOPHILS # (AUTO) 0.1 10^3/uL (0.0-0.3); EOSINOPHILS % (AUTO) 2 % (0-10); HEMATOCRIT 35 % (40-54); HEMOGLOBIN 12.4 G/DL (13.3-17.7); LYMPHOCYTES # (AUTO) 1.4 X 10^3 (1.0-4.0); LYMPHOCYTES % (AUTO) 23 % (12-44); MEAN CORPUSCULAR HEMOGLOBIN 33 PG (25-34); MEAN CORPUSCULAR HGB CONC 36 G/DL (32-36); MEAN CORPUSCULAR VOLUME 92 FL (80-99); MEAN PLATELET VOLUME 10.5 FL (7.4-10.4); MONOCYTES # (AUTO) 0.7 X 10^3 (0.0-1.0); MONOCYTES % (AUTO) 12 % (0-12); NEUTROPHILS # (AUTO) 3.8 X 10^3 (1.8-7.8); NEUTROPHILS % (AUTO) 63 % (42-75); PLATELET COUNT 222 10^3/uL (130-400); RED CELL DISTRIBUTION WIDTH 13.3 % (10.0-14.5)
[2018-11-08] MEDS: PIPERACILLIN/TAZOBACTAM (BULK) 4.5 GM in NS (IVPB) 100 ML IV SCH ×3 (05:49→22:42)
[2018-11-08] MEDS: ONDANSETRON 4 MG (ZOFRAN) ORAL DISSOLVE TAB PO SCH ×3 (05:51→17:31)
[2018-11-08 05:54] LABS: BUN/CREATININE RATIO 8; CALCIUM 7.5 MG/DL (8.5-10.1); CARBON DIOXIDE 20 MMOL/L (21-32); CHLORIDE 108 MMOL/L (98-107); CREATININE SERUM 1.14 MG/DL (0.60-1.30); GFR ESTIMATED > 60; GLUCOSE 88 MG/DL (70-105); PHOSPHORUS 2.8 MG/DL (2.3-4.7); POTASSIUM 3.9 MMOL/L (3.6-5.0); SODIUM 137 MMOL/L (135-145)
[2018-11-08] MEDS: RT-ALBUTEROL/IPRATROPIUM 3 ML (DUONEB) VIAL INH SCH (07:19)
--- NOTE | 2018-11-08 07:44 | Pulmonary Progress Note ---
Sepsis Event Evaluation Height, Weight, BMI Height: 5'8.00" Weight: 234lbs. 5.0oz. 106.357551iu; 34.3 BMI Method:Stated Focused Exam Lactate Level 11/05/18 12:38: Lactic Acid Level 2.89*H 11/05/18 14:50: Lactic Acid Level 3.10*H Exam Exam Vital Signs Date Time Temp Pulse Resp B/P (MAP) Pulse Ox O2 Delivery O2 Flow Rate FiO2 11/08/18 07:34 86 96 21 11/08/18 07:19 96 Room Air 11/08/18 04:36 97.8 88 17 119/91 (100) 98 Room Air 11/08/18 00:09 97.5 81 16 136/89 (105) 98 Room Air 11/07/18 20:52 Room Air 11/07/18 20:06 94 Room Air 11/07/18 16:42 97.7 94 16 120/82 (95) 99 Room Air 11/07/18 09:00 94 Room Air 94 11/07/18 08:09 98.2 82 18 117/78 (91) 94 Room Air I & O 11/08/18 07:00 Intake Total 5700 ml Balance 5700 ml Height & Weight Height: 5'8.00" Weight: 234lbs. 5.0oz. 106.376418hp; 34.3 BMI Method:Stated General Appearance: No Apparent Distress, WD/WN HEENT: PERRL/EOMI, Normal ENT Inspection, Pharynx Normal Neck: Full Range of Motion, Non Tender, Supple Respiratory: Chest Non Tender, Lungs Clear, Normal Breath Sounds, No Accessory Muscle Use, No Respiratory Distress Cardiovascular: No Edema, No Gallop, No JVD, No Murmur, Irregularly Irregular (Heart rate in the 80s currently) Capillary Refill: Less Than 3 Seconds Gastrointestinal: soft, tenderness (mild diffuse) Extremity: Normal Capillary Refill, No Pedal Edema Neurologic/Psychiatric: Alert, Oriented x3 Skin: Normal Color, Warm/Dry Lymphatic: No Adenopathy Results Lab Laboratory Tests 11/06/18 13:20 11/07/18 05:45 11/08/18 05:17 Assessment/Plan Assessment/Plan Acute small questionable segmental bilateral PEs - -Lovenox -Pt can be switched to PO anticoagulation if he is agreeable. -PT does have Afib so even if not really a PE he should be anticoagulated. -PT's Sp02 is 98% on RA - Bilateral dopplers - negative Gastroenteritis/Diarrhea - persistent -Stool cultures pending -Abx ARF -Monitor -Continue IVF Sepsis FERNANDO MCGILL DO Nov 08, 2018 07:44
--- NOTE | 2018-11-08 08:42 | Progress Note-Hospitalist ---
Subjective HPI/CC On Admission Date Seen by Provider: Nov 08, 2018 Time Seen by Provider: 08:20 The patient is a 63-year-old white male who presented to the emergency room yesterday. He reported that he had been to the ER on 11/01 with complaints of vomiting and diarrhea. He had received IV fluids and was discharged with Zofran. He reported that he did relatively well for a day or 2 then had nausea again he reported that on Saturday 11/04 he had felt quite well and was able to eat. He did continue to have watery stools. He arose on the morning of 11/05 again feeling well. He took his blood pressure medicine and attempted to walk down the lowry to the bathroom. He reports that he became very wobbly and sank to the floor. The EMS service was called and when they arrived they found in his blood pressure to be 60/40. IVs were started and he was brought to the emergency room. His initial vital signs showed a temperature of 101.2 and a pulse of 125. Subjective/Events-last exam Patient reports stools are beginning to form and decreasing in amount. He denies cramping has had no night sweats chills fever and pain postprandially on a liquid diet is diminishing as well. He denies any problems with headache and energy level is improving. He's had no fecal incontinence over the past 24 hours. He's noted no blood in the stool. He's had no chest pain or shortness of breath. He also denies leg pain or swelling. Focused Exam Lactate Level 11/05/18 12:38: Lactic Acid Level 2.89*H 11/05/18 14:50: Lactic Acid Level 3.10*H Objective Exam Vital Signs Vital Signs Date Time Temp Pulse Resp B/P (MAP) Pulse Ox O2 Delivery O2 Flow Rate FiO2 11/08/18 08:12 97.8 100 20 122/84 (97) 98 Room Air 11/08/18 07:34 21 11/06/18 04:00 2.00 Capillary Refill : Less Than 3 Seconds General Appearance: No Apparent Distress, WD/WN HEENT: PERRL/EOMI, Normal ENT Inspection, Pharynx Normal Neck: Full Range of Motion, Non Tender, Supple Respiratory: Chest Non Tender, Lungs Clear, Normal Breath Sounds, No Accessory Muscle Use, No Respiratory Distress Cardiovascular: No Edema, No Gallop, No JVD, No Murmur, Irregularly Irregular (Heart rate in the 80s currently) Gastrointestinal: Normal Bowel Sounds, No Organomegaly, Non Tender, Distended (Mild distention), Other (No masses noted.) Extremity: Normal Capillary Refill, No Pedal Edema Neurologic/Psychiatric: Alert, Oriented x3 Skin: Normal Color, Warm/Dry Lymphatic: No Adenopathy Results/Procedures Lab Laboratory Tests 11/08/18 05:17 Patient resulted labs reviewed. Assessment/Plan Assessment and Plan Assess & Plan/Chief Complaint A/P 1. Gastroenteritis with significant dehydration and volume contraction and syncope due to hypotension. Cannot rule out possibility of sepsis although his lactic acidosis may be hypotension related. He is currently responding to volume replacement and does have other risk for bacterial enteritis such as Salmonella Shigella or enterotoxigenic Escherichia coli to name the most common culprits agree with antibiotics condition improving C. difficile highly unlikely will DC metronidazole as the patient has no risk factors for protozoan infection or travel history. Intravascular volume status improves will DC IV fluids and slowly advance diet as tolerated. t. 2. Chronic atrial fibrillation again had a discussion recommending when everything was said and done anticoagulant therapy discussed in detail his chads vascular score gives a yearly stroke risk of around 3 percent. He has been against anticoagulation in the past but I had a discussion in front of his about the fact that current anticoagulant therapy has but the same risk of bleeding is aspirin significantly more effective in reducing strokes which can be catastrophic in regards to quality of life. Patient's thought about yesterday's conversation and is agreeable to anticoagulant therapy his last Lovenox injection was around 9 o'clock last night so will start eliquis at the 5 mg twice a day dose as there are still increased risk for GI bleed considering number 1 and diagnosis pulmonary embolism was questionable. 4. History of hypertension continue to hold antihypertensive medication as blood pressures have been normal.. Clinical Quality Measures DVT/VTE Risk/Contraindication: Risk Factor Score Per Nursin RFS Level Per Nursing on Admit: 4+=Very High Other: SEE INTERVENTIONS FOR DETAILS ALANA OAKES MD Nov 08, 2018 08:42
[2018-11-08] MEDS: APIXABAN 5 MG (ELIQUIS) TABLET PO SCH ×2 (09:18→20:28)
[2018-11-09 00:10] VITALS: BP 132/90
[2018-11-09 04:49] VITALS: BP 139/79
[2018-11-09] MEDS: PIPERACILLIN/TAZOBACTAM (BULK) 4.5 GM in NS (IVPB) 100 ML IV SCH (06:26)
[2018-11-09] MEDS: ONDANSETRON 4 MG (ZOFRAN) ORAL DISSOLVE TAB PO SCH (06:33)
[2018-11-09] MEDS: APIXABAN 5 MG (ELIQUIS) TABLET PO SCH (08:26)
[2018-11-09] MEDS ORDERED: CEPH250T PO (08:33)
[2018-11-09] MEDS ORDERED: ONDA4TAB11 PO (08:33)
[2018-11-09] MEDS ORDERED: APIX5TAB PO (08:33)
--- NOTE | 2018-11-09 08:46 | Discharge Summary-Hospitalist ---
Diagnosis/Chief Complaint Date of Admission Nov 05, 2018 at 15:32 Date of Discharge Discharge Date: Nov 09, 2018 Discharge Summary Discharge Physical Exam Allergies: Coded Allergies: No Known Drug Allergies (Unverified , 11/01/18) Vitals & I&Os Vital Signs Date Time Temp Pulse Resp B/P (MAP) Pulse Ox O2 Delivery O2 Flow Rate FiO2 11/09/18 08:17 98.0 78 20 96 Room Air 11/09/18 04:49 139/79 (99) 11/08/18 07:34 21 11/06/18 04:00 2.00 General Appearance: No Apparent Distress Respiratory: Chest Non Tender, Lungs Clear, Normal Breath Sounds, No Accessory Muscle Use, No Respiratory Distress Cardiovascular: No Edema, No Gallop, No JVD, No Murmur, Irregularly Irregular Gastrointestinal: Normal Bowel Sounds, No Organomegaly, No Pulsatile Mass, Non Tender, Soft Hospital Course Was the Problem List Reviewed?: Yes History of Present Illness HPI/Chief Complaint The patient is a 63-year-old white male who presented to the emergency room yesterday. He reported that he had been to the ER on 11/01 with complaints of vomiting and diarrhea. He had received IV fluids and was discharged with Zofran. He reported that he did relatively well for a day or 2 then had nausea again he reported that on Saturday 11/04 he had felt quite well and was able to eat. He did continue to have watery stools. He arose on the morning of 11/05 again feeling well. He took his blood pressure medicine and attempted to walk down the lowry to the bathroom. He reports that he became very wobbly and sank to the floor. The EMS service was called and when they arrived they found in his blood pressure to be 60/40. IVs were started and he was brought to the emergency room. His initial vital signs showed a temperature of 101.2 and a pulse of 125 Patient met criteria for sepsis IV fluids were initiated as well as broad- spectrum antibiotics with concerns over bacterial related gastroenteritis. Stool for C. difficile toxin was negative and enteric pathogens thus far negative with no evidence for Salmonella Shigella or end or toxigenic Escherichia coli. Diarrhea slowly improved blood pressure improved as well as overall general medical status. Abdominal pain especially postprandial resolved with defervesce of fever. Patient was tolerating soft solids crackers toast and liquids without difficulty. Additional history patient noted exposure to a wild turtle that urinated on him 24 hours prior to the onset of the symptoms.. There were no bite issues. Patient has underlying chronic atrial fibrillation but was rate controlled off of metoprolol so we'll hold this medication he is to hold chlorthalidone with resumption of olmesartan and a follow-up appointment in one week with me. He will monitor his home blood pressures and if having persistent blood pressures over 140/90 he can resume his chlorthalidone. He was discharged on another 3 days of cephalexin 250 3 times a day and after discussion he consented to Eliquis 5 mg twice a day. There is some questionable small pulmonary embolism on a CTA on admission of the chest. We had recommended anticoagulant therapy for his chronic atrial fibrillation have the he had re fused after discussion in the past. For now we'll have him hold aspirin. He will follow-up with me in one week. Labs (last 24 hrs) Microbiology 11/05/18 Blood Culture - Final, Complete Staphylococcus epidermidis Staphylococcus hominis See Comments 11/05/18 C. difficile GDH Antigen & Toxins - Final, Complete 11/05/18 Stool Culture - Final, Complete Culture In Progress Presumptive Usual Estefany 11/05/18 MRSA Screen - Final, Complete MRSA not isolated 11/05/18 Urine Culture - Final, Complete NO GROWTH Patient resulted labs reviewed. Discussion & Recommendations Discharge Planning: >30 minutes discharge planning Discharge Home Medications: Active Scripts Active Ondansetron Odt (Ondansetron) 4 Mg Tab.rapdis 4 Mg PO Q6H PRN 7 Days Eliquis (Apixaban) 5 Mg Tablet 5 Mg PO BID 60 Days Cephalexin 250 Mg Tablet 250 Mg PO TIDWM 3 Days Protonix (Pantoprazole Sodium) 40 Mg Tablet. 40 Mg PO DAILY Dicyclomine HCl 20 Mg Tablet 20 Mg PO Q6H Reported Chlorthalidone 25 Mg Tablet 25 Mg PO DAILY Olmesartan Medoxomil 40 Mg Tablet 40 Mg PO DAILY Aspir 81 (Aspirin) 81 Mg Tablet. 81 Mg PO DAILY Metoprolol Succinate 50 Mg Tab.er.24h 50 Mg PO DAILY Instructions to patient/family Please see electronic discharge instructions given to patient. Clinical Quality Measures DVT/VTE Risk/Contraindication: Risk Factor Score Per Nursin RFS Level Per Nursing on Admit: 4+=Very High Other: SEE INTERVENTIONS FOR DETAILS ALANA OAKES MD Nov 09, 2018 08:46
== END 2018-11-09 10:00 | disposition home or self-care (01) | DRG 871 ==
LOC: EDUNIT# 12:25 → ER 12:26 → ICU 15:32 → 4TH 11-06 17:06
PROVIDERS: ADMIT Internal Medicine; ATTEND Internal Medicine
PROC: 02HV33Z Insertion of Infusion Device into Superior Vena Cava, Percutaneous Approach (ICD-10-PCS; principal; 2018-11-05)
DX: A41.9 Sepsis, unspecified organism (principal); A09 Infectious gastroenteritis and colitis, unspecified; I26.99 Other pulmonary embolism without acute cor pulmonale; N17.9 Acute kidney failure, unspecified; E87.2 Acidosis; E86.0 Dehydration; R55 Syncope and collapse; I48.2 Chronic atrial fibrillation; I10 Essential (primary) hypertension; J30.2 Other seasonal allergic rhinitis; E87.6 Hypokalemia; E83.42 Hypomagnesemia; K76.9 Liver disease, unspecified; K57.90 Diverticulosis of intestine, part unspecified, without perforation or abscess without bleeding; Z79.82 Long term (current) use of aspirin
CPT/HCPCS: 36415; 51702; 71045; 71275; 74174; 80048; 80053; 80061; 81000; 82805; 83605; 83735; 83874; 84100; 84443; 84484; 85007; 85025; 85027; 85379; 85610; 85730; 86618; 86666; 86668; 86757; 87015; 87040; 87045; 87046; 87081; 87088; 87324; 87449; 87899; 93005; 93041; 93970; 94640; 94760; 96361; 96365; 96366; 96367; 96368; 96372

== ENCOUNTER 2018-11-15 18:29 | Inpatient (IN) | payer BC ==
[~2018-11-15] VITALS: Ht 172.7 cm; Wt 101.2 kg
[~2018-11-15 18:29] MED LIST changes: +APIX5TAB PO; +CEPH250T PO; +ONDA4TAB11 PO
--- OUTSIDE RECORDS SUMMARY | 2018-11-15 18:35 | XMS REPORT | Continuity of Care Document ---
Author Organization Unknown Address Unknown Allergies Active Description Code Type Severity Reaction Onset Reported/Identified Relationship to Patient Clinical Status Yes No Known Drug Allergies [id number] Drug Allergy Unknown N/A 11/01/2018 Medications There is no data. Problems Date [...] CONLEY APRN 401.1 HYPERTENSION, BENIGN ESSENTIAL 05/10/2012 AMRTHA CONLEY APRN 427.31 ATRIAL FIBRILLATION 05/10/2012 MARTHA [...] 08/17/2018 SUN ROBIN, RACIEL B Ot Z79.82 [facility] (CURRENT) USE OF ASPIRIN 08/17/2018 ZENJANUSZ ROBIN RACIEL B Ot Z79.899 OTHER [facility] (CURRENT) DRUG THERAPY 08/21/2018 SUN ROBIN, RACIEL [...] 08/21/2018 MADELEINE GARSIA DOIC B Ot Z79.82 [facility] (CURRENT) USE OF ASPIRIN 08/21/2018 MADELEINE GARSIA DOIC B Ot Z79.899 OTHER [facility] (CURRENT) DRUG THERAPY 08/21/2018 MADELEINE GARSIA DOIC [...] 08/21/2018 MADELEINE GARSIA DOIC B Ot Z79.82 [facility] (CURRENT) USE OF ASPIRIN 08/21/2018 MADELEINE GARSIA DOIC B Ot Z79.899 OTHER [facility] (CURRENT) DRUG THERAPY 08/23/2018 MADELEINE GARSIA DOIC [...] INGUINAL HERNIA, W OBST, W/O GANGR, 08/23/2018 SUN ROBIN RACIEL B Ot Z68.35 BODY MASS INDEX (BMI) 35.0-35.9, ADULT 08/23/2018 SUN RACIEL ROBIN Ot Z79.82 [facility] (CURRENT) USE OF ASPIRIN 08/23/2018 SUN RACIEL ROBIN Ot Z79.899 OTHER [facility] (CURRENT) DRUG THERAPY 10/24/2018 ALANA OAKES MD Ot Z01.818 ENCOUNTER FOR OTHER PREPROCEDURAL EXAMIN 11/01/2018 ALANA OAKES MD Ot I10 ESSENTIAL (PRIMARY) HYPERTENSION 11/01/2018 ALANA OAKES MD Ot I48.1 PERSISTENT ATRIAL FIBRILLATION 11/01/2018 ALANA OAKES MD, Ot K57.30 DVRTCLOS OF LG INT W/O PERFORATION OR AB 11/01/2018 ALANA OAKES MD Ot N40.0 BENIGN PROSTATIC HYPERPLASIA WITHOUT LOW 11/01/2018 ALANA OAKES MD Ot Z12.11 ENCOUNTER FOR SCREENING FOR MALIGNANT NE 11/01/2018 ALANA OAKES MD Ot Z79.82 [facility] (CURRENT) USE OF ASPIRIN 11/01/2018 ALANA OAKES MD Ot Z79.899 OTHER [facility] (CURRENT) DRUG THERAPY 11/01/2018 ALANA OAKES MD Ot I10 ESSENTIAL (PRIMARY) HYPERTENSION 11/01/2018 ALANA OAKES MD Ot I48.1 PERSISTENT ATRIAL FIBRILLATION 11/01/2018 ALANA OAKES MD Ot K57.30 DVRTCLOS OF LG INT W/O PERFORATION OR AB 11/01/2018 ALANA OAKES MD Ot N40.0 BENIGN PROSTATIC HYPERPLASIA WITHOUT LOW 11/01/2018 ALANA OAKES MD Ot Z12.11 ENCOUNTER FOR SCREENING FOR MALIGNANT NE 11/01/2018 ALANA OAKES MD Ot Z79.82 [facility] (CURRENT) USE OF ASPIRIN 11/01/2018 ALANA OAKES MD Ot Z79.899 OTHER [facility] (CURRENT) DRUG THERAPY 11/01/2018 ALANA OAKES MD Ot I10 ESSENTIAL (PRIMARY) HYPERTENSION 11/01/2018 ALANA OAKES MD Ot I48.1 PERSISTENT ATRIAL FIBRILLATION 11/01/2018 ALANA OAKES MD Ot K57.30 DVRTCLOS OF LG INT W/O PERFORATION OR AB 11/01/2018 ALANA OAKES MD Ot N40.0 BENIGN PROSTATIC HYPERPLASIA WITHOUT LOW 11/01/2018 ALANA OAKES MD Ot Z12.11 ENCOUNTER FOR SCREENING FOR MALIGNANT NE 11/01/2018 ALANA OAKES MD Ot Z79.82 [facility] (CURRENT) USE OF ASPIRIN 11/01/2018 ALANA OAKES MD Ot Z79.899 OTHER [facility] (CURRENT) DRUG THERAPY 11/06/2018 MICAELA DO, CHERY K Ot I10 ESSENTIAL (PRIMARY) HYPERTENSION 11/06/2018 MICAELA DO, CHERY K Ot I48.91 UNSPECIFIED ATRIAL FIBRILLATION 11/06/2018 MICAELA DO, CHERY K Ot K52.9 NONINFECTIVE GASTROENTERITIS AND COLITIS 11/06/2018 MICAELA DO, CHERY K Ot R11.2 NAUSEA WITH VOMITING, UNSPECIFIED 11/06/2018 MICAELA DO, CHERY K Ot Z79.82 [facility] (CURRENT) USE OF ASPIRIN 11/06/2018 MICAELA DO, CHERY K Ot Z87.19 PERSONAL HISTORY OF OTHER DISEASES OF TH 11/06/2018 MICAELA DO, CHERY K Ot Z90.89 ACQUIRED ABSENCE OF OTHER ORGANS 11/06/2018 MICAELA DO, CHERY K Ot Z98.890 OTHER SPECIFIED POSTPROCEDURAL STATES 11/09/2018 ALANA OAKES MD Ot A09 INFECTIOUS GASTROENTERITIS AND COLITIS, 11/09/2018 ALANA OAKES MD Ot A41.9 SEPSIS, UNSPECIFIED ORGANISM 11/09/2018 ALANA OAKES MD Ot E83.42 HYPOMAGNESEMIA 11/09/2018 ALANA OAKES MD Ot E86.0 DEHYDRATION 11/09/2018 ALANA OAKES MD Ot E87.2 ACIDOSIS 11/09/2018 ALANA OAKES MD Ot E87.6 HYPOKALEMIA 11/09/2018 ALANA OAKES MD Ot I10 ESSENTIAL (PRIMARY) HYPERTENSION 11/09/2018 ALANA OAKES MD Ot I26.99 OTHER PULMONARY EMBOLISM WITHOUT ACUTE C 11/09/2018 ALANA OAKES MD Ot I48.2 CHRONIC ATRIAL FIBRILLATION 11/09/2018 ALANA OAKES MD Ot J30.2 OTHER SEASONAL ALLERGIC RHINITIS 11/09/2018 ALANA OAKES MD Ot K57.90 DVRTCLOS OF INTEST, PART UNSP, W/O PERF 11/09/2018 ALANA OAKES MD Ot K76.9 LIVER DISEASE, UNSPECIFIED 11/09/2018 ALANA OAKES MD Ot N17.9 ACUTE KIDNEY FAILURE, UNSPECIFIED 11/09/2018 ALANA OAKES MD Ot R55 SYNCOPE AND COLLAPSE 11/09/2018 ALANA OAKES MD Ot Z79.82 [facility] (CURRENT) USE OF ASPIRIN 11/09/2018 ALANA OAKES MD Ot A09 INFECTIOUS GASTROENTERITIS AND COLITIS, 11/09/2018 ALANA OAKES MD Ot A41.9 SEPSIS, UNSPECIFIED ORGANISM 11/09/2018 ALANA OAKES MD Ot E83.42 HYPOMAGNESEMIA 11/09/2018 ALANA OAKES MD Ot E86.0 DEHYDRATION 11/09/2018 ALANA OAKES MD Ot E87.2 ACIDOSIS 11/09/2018 ALANA OAKES MD Ot E87.6 HYPOKALEMIA 11/09/2018 ALANA OAKES MD Ot I10 ESSENTIAL (PRIMARY) HYPERTENSION 11/09/2018 ALANA OAKES MD Ot I26.99 OTHER PULMONARY EMBOLISM WITHOUT ACUTE C 11/09/2018 ALANA OAKES MD Ot I48.2 CHRONIC ATRIAL FIBRILLATION 11/09/2018 ALANA OAKES MD Ot J30.2 OTHER SEASONAL ALLERGIC RHINITIS 11/09/2018 ALANA OAKES MD Ot K57.90 DVRTCLOS OF INTEST, PART UNSP, W/O PERF 11/09/2018 ALANA OAKES MD Ot K76.9 LIVER DISEASE, UNSPECIFIED 11/09/2018 ALANA OAKES MD Ot N17.9 ACUTE KIDNEY FAILURE, UNSPECIFIED 11/09/2018 ALANA OAKES MD Ot R55 SYNCOPE AND COLLAPSE 11/09/2018 ALANA OAKES MD Ot Z79.82 [facility] (CURRENT) USE OF ASPIRIN 11/09/2018 ALANA OAKES MD Ot I10 ESSENTIAL (PRIMARY) HYPERTENSION 11/09/2018 ALANA OAKES MD Ot I48.1 PERSISTENT ATRIAL FIBRILLATION 11/09/2018 ALANA OAKES MD Ot K57.30 DVRTCLOS OF LG INT W/O PERFORATION OR AB 11/09/2018 ALANA OAKES MD Ot N40.0 BENIGN PROSTATIC HYPERPLASIA WITHOUT LOW 11/09/2018 ALANA OAKES MD Ot Z12.11 ENCOUNTER FOR SCREENING FOR MALIGNANT NE 11/09/2018 ALANA OAKES MD Ot Z79.82 [facility] (CURRENT) USE OF ASPIRIN 11/09/2018 ALANA OAKES MD Ot Z79.899 OTHER [facility] (CURRENT) DRUG THERAPY Procedures Code [place] [address] ROUTINE VENIPUNCTURE 05/11/2012 29025 CBC 05/11/2012 54991 LIPID PANEL 05/11/2012 65389 CMP 05/11/2012 0923791 GFR CALC (RESULT ONLY) 05/11/2012 77995 CRP HS (CARDIO) 05/12/2012 30493 TSH 05/12/2012 63141 BNP 05/12/2012 93470 XRAY CHEST 2 VIEW 05/12/2012 34838 EKG, TRACING (IN-HOUSE) 05/12/2012 Cardiolog Andre Mccullough 05/12/2012 03121 A1C (IN-HOUSE) 05/15/2012 58330 OXIMETRY 06/14/2012 17385 ECHO 2D 06/14/2012 02231 ROUTINE VENIPUNCTURE 03/18/2014 03135 CBC 03/18/2014 49771 CMP 03/18/2014 65230 LIPID PANEL 03/18/2014 1590035 GFR CALC (RESULT ONLY) 03/18/2014 [id number] INSERTION OF INFUSION DEV INTO SUP VENA 11/05/2018 Results Test Result Range Methicillin resistant Staphylococcus aureus (MRSA) screening culture - 08/17/18 06:30 Methicillin resistant Staphylococcus aureus (MRSA) screening culture NEG NRG Complete blood count (CBC) with automated white blood cell (WBC) differential - 11/01/18 07:34 Blood leukocytes automated count (number/volume) 6.3 10*3/uL 4.3-11.0 Blood erythrocytes automated count (number/volume) 5.05 10*6/uL 4.35-5.85 Venous blood hemoglobin measurement (mass/volume) 16.4 g/dL 13.3-17.7 Blood hematocrit (volume fraction) 46 % 40-54 Automated erythrocyte mean corpuscular volume 90 [foz_us] 80-99 Automated erythrocyte mean corpuscular hemoglobin (mass per erythrocyte) 33 pg 25-34 Automated erythrocyte mean corpuscular hemoglobin concentration measurement (mass/volume) 36 g/dL 32-36 Automated erythrocyte distribution width ratio 13.2 % 10.0- 14.5 Automated blood platelet count (count/volume) 163 10*3/uL 130-400 Automated blood platelet mean volume measurement 11.0 [foz_us] 7.4-10.4 Automated blood neutrophils/100 leukocytes 84 % 42-75 Automated blood lymphocytes/100 leukocytes 9 % 12-44 Blood monocytes/100 leukocytes 7 % 0-12 Automated blood eosinophils/100 leukocytes 0 % 0-10 Automated blood basophils/100 leukocytes 1 % 0-10 Blood neutrophils automated count (number/volume) 5.3 10*3 1.8-7.8 Blood lymphocytes automated count (number/volume) 0.6 10*3 1.0-4.0 Blood monocytes automated count (number/volume) 0.4 10*3 0.0- 1.0 Automated eosinophil count 0.0 10*3/uL 0.0-0.3 Automated blood basophil count (count/volume) 0.0 10*3/uL 0.0-0.1 Comprehensive metabolic panel - 11/01/18 07:34 Serum or plasma sodium measurement (moles/volume) 138 mmol/L 135-145 Serum or plasma potassium measurement (moles/volume) 4.1 mmol/L 3.6-5.0 Serum or plasma chloride measurement (moles/volume) 100 mmol/L 98-107 Carbon dioxide 25 mmol/L 21-32 Serum or plasma anion gap determination (moles/volume) 13 mmol/L 5-14 Serum or plasma urea nitrogen measurement (mass/volume) 26 mg/dL 7-18 Serum or plasma creatinine measurement (mass/volume) 1.27 mg/dL 0.60-1.30 Serum or plasma urea nitrogen/creatinine mass ratio 20 NRG Serum or plasma creatinine measurement with calculation of estimated glomerular filtration rate 57 NRG Serum or plasma glucose measurement (mass/volume) 183 mg/dL 70-105 Serum or plasma calcium measurement (mass/volume) 8.9 mg/dL 8.5-10.1 Serum or plasma total bilirubin measurement (mass/volume) 0.8 mg/dL 0.1-1.0 Serum or plasma alkaline phosphatase measurement (enzymatic activity/volume) 47 U/L 40-136 Serum or plasma aspartate aminotransferase measurement (enzymatic activity/volume) 20 U/L 5-34 Serum or plasma alanine aminotransferase measurement (enzymatic activity/volume) 33 U/L 0-55 Serum or plasma protein measurement (mass/volume) 7.2 g/dL 6.4-8.2 Serum or plasma albumin measurement (mass/volume) 4.4 g/dL 3.2-4.5 CALCIUM CORRECTED 8.6 mg/dL 8.5-10.1 Magnesium - 11/01/18 07:34 Magnesium 1.8 mg/dL 1.8-2.4 Serum or plasma amylase measurement (enzymatic activity/volume) - 11/01/18 07:34 Serum or plasma amylase measurement (enzymatic activity/volume) 26 U/L 25-125 Lipase - 11/01/18 07:34 Lipase 8 U/L 8-78 Complete urinalysis with reflex to culture - 11/01/18 10:04 Urine color determination YELLOW NRG Urine clarity determination CLEAR NRG Urine pH measurement by test strip 5 5-9 Specific gravity of urine by test strip 1.015 1.016-1.022 Urine protein assay by test strip, semi-quantitative 1+ NEGATIVE Urine glucose detection by automated test strip NEGATIVE NEGATIVE Erythrocytes detection in urine sediment by light microscopy NEGATIVE NEGATIVE Urine ketones detection by automated test strip 2+ NEGATIVE Urine nitrite detection by test strip NEGATIVE NEGATIVE Urine total bilirubin detection by test strip NEGATIVE NEGATIVE Urine urobilinogen measurement by automated test strip (mass/volume) NORMAL NORMAL Urine leukocyte esterase detection by dipstick NEGATIVE NEGATIVE Automated urine sediment erythrocyte count by microscopy (number/high power field) NONE NRG Automated urine sediment leukocyte count by microscopy (number/high power field) NONE NRG Bacteria detection in urine sediment by light microscopy NEGATIVE NRG Squamous epithelial cells detection in urine sediment by light microscopy 0-2 NRG Crystals detection in urine sediment by light microscopy NONE NRG Casts detection in urine sediment by light microscopy PRESENT NRG Mucus detection in urine sediment by light microscopy NEGATIVE NRG Complete urinalysis with reflex to culture NO NRG Hyaline casts detection in urine sediment by light microscopy 2-5 NRG Complete blood count (CBC) with automated white blood cell (WBC) differential - 11/05/18 12:38 Blood leukocytes automated count (number/volume) 6.0 10*3/uL 4.3-11.0 Blood erythrocytes automated count (number/volume) 5.18 10*6/uL 4.35-5.85 Venous blood hemoglobin measurement (mass/volume) 16.7 g/dL 13.3-17.7 Blood hematocrit (volume fraction) 47 % 40-54 Automated erythrocyte mean corpuscular volume 90 [foz_us] 80-99 Automated erythrocyte mean corpuscular hemoglobin (mass per erythrocyte) 32 pg 25-34 Automated erythrocyte mean corpuscular hemoglobin concentration measurement (mass/volume) 36 g/dL 32-36 Automated erythrocyte distribution width ratio 12.6 % 10.0- 14.5 Automated blood platelet count (count/volume) 244 10*3/uL 130-400 Automated blood platelet mean volume measurement 10.6 [foz_us] 7.4-10.4 Automated blood neutrophils/100 leukocytes 96 % 42-75 Automated blood lymphocytes/100 leukocytes 3 % 12-44 Blood monocytes/100 leukocytes 1 % 0-12 Automated blood eosinophils/100 leukocytes 0 % 0-10 Automated blood basophils/100 leukocytes 0 % 0-10 Blood neutrophils automated count (number/volume) 5.8 10*3 1.8-7.8 Blood lymphocytes automated count (number/volume) 0.2 10*3 1.0-4.0 Blood monocytes automated count (number/volume) 0.1 10*3 0.0- 1.0 Automated eosinophil count 0.0 10*3/uL 0.0-0.3 Automated blood basophil count (count/volume) 0.0 10*3/uL 0.0-0.1 Magnesium - 11/05/18 12:38 Magnesium 1.8 mg/dL 1.8-2.4 Blood lactic acid measurement (moles/volume) - 11/05/18 12:38 Blood lactic acid measurement (moles/volume) 2.89 mmol/L 0.50- 2.00 Comprehensive metabolic panel - 11/05/18 12:38 Serum or plasma sodium measurement (moles/volume) 138 mmol/L 135-145 Serum or plasma potassium measurement (moles/volume) 3.8 mmol/L 3.6-5.0 Serum or plasma chloride measurement (moles/volume) 100 mmol/L 98-107 Carbon dioxide 22 mmol/L 21-32 Serum or plasma anion gap determination (moles/volume) 16 mmol/L 5-14 Serum or plasma urea nitrogen measurement (mass/volume) 19 mg/dL 7-18 Serum or plasma creatinine measurement (mass/volume) 1.86 mg/dL 0.60-1.30 Serum or plasma urea nitrogen/creatinine mass ratio 10 NRG Serum or plasma creatinine measurement with calculation of estimated glomerular filtration rate 37 NRG Serum or plasma glucose measurement (mass/volume) 143 mg/dL 70-105 Serum or plasma calcium measurement (mass/volume) 8.9 mg/dL 8.5-10.1 Serum or plasma total bilirubin measurement (mass/volume) 1.2 mg/dL 0.1-1.0 Serum or plasma alkaline phosphatase measurement (enzymatic activity/volume) 55 U/L 40-136 Serum or plasma aspartate aminotransferase measurement (enzymatic activity/volume) 40 U/L 5-34 Serum or plasma alanine aminotransferase measurement (enzymatic activity/volume) 57 U/L 0-55 Serum or plasma protein measurement (mass/volume) 6.7 g/dL 6.4-8.2 Serum or plasma albumin measurement (mass/volume) 4.0 g/dL 3.2-4.5 CALCIUM CORRECTED 8.9 mg/dL 8.5-10.1 PT panel in platelet poor plasma by coagulation assay - 11/05/18 12:38 Prothrombin time (PT) in platelet poor plasma by coagulation assay 14.0 s 12.2-14.7 INR in platelet poor plasma or blood by coagulation assay 1.0 0.8-1.4 Activated partial thromboplastin time (aPTT) in platelet poor plasma bycoagulation assay - 11/05/18 12:38 Activated partial thromboplastin time (aPTT) in platelet poor plasma bycoagulation assay 21 s 24-35 Fibrin D-dimer FEU measurement in platelet poor plasma (mass/volume) - 11/05/18 12:38 Fibrin D-dimer FEU measurement in platelet poor plasma (mass/volume) 6.08 ug/mL 0.00-0.49 Serum or plasma troponin i.cardiac measurement (mass/volume) - 11/05/18 12:38 Serum or plasma troponin i.cardiac measurement (mass/volume) < ng/mL <0.028 Myoglobin, serum - 11/05/18 12:38 Myoglobin, serum 107.1 ng/mL 10.0-92.0 Blood manual differential performed detection - 11/05/18 12:38 Blood monocytes/100 leukocytes 10 % NRG Manual blood segmented neutrophils/100 leukocytes 72 % NRG Blood band neutrophils/100 leukocytes 12 % NRG Manual blood lymphocytes/100 leukocytes 6 % NRG Blood erythrocyte morphology finding identification NORMAL NRG Blood toxic granules detection by light microscopy 1+ NRG Serum or plasma thyrotropin measurement by detection limit <=0.05 miu/l (units/volume) - 11/05/18 12:38 Serum or plasma thyrotropin measurement by detection limit <=0.05 miu/l (units/volume) 3.84 u[iU]/mL 0.35-4.94 Bacterial blood culture - 11/05/18 12:40 Bacterial blood culture NG NRG Bacterial blood culture - 11/05/18 13:35 FREE TEXT EXTERNAL NO SUSCEPTIBILITY PERFORMED NRG QUANTITY OF GROWTH . NRG Bacterial blood culture SEE COMMEN NRG Arterial blood gas measurement - 11/05/18 13:50 Blood pCO2 31 mm[Hg] 35-45 Blood pO2 120 mm[Hg] 79-93 Arterial blood bicarbonate measurement (moles/volume) 20 mmol/L 23-27 Arterial blood base excess by calculation -3.8 mmol/L -2.5-2.5 Arterial blood oxygen saturation measurement 99 % 94-100 * Inhaled oxygen flow rate 3 L NRG Arterial blood pH measurement with patient temperature correction 7.42 7.37-7.43 Arterial blood carbon dioxide, total measurement (moles/volume) 20.9 mmol/L 21.0-31.0 Body site RT RAD NRG Assessment of wrist artery patency prior to arterial puncture YES-POS NRG Setting of ventilation mode NO NRG Measurement of body temperature 98.3 NRG C DIFFICILE AG + TOXIN A/B. - 11/05/18 14:00 RESULTS NEGATIVE FOR ANTIGEN AND TOXIN A/B NRG Stool bacteria identification by culture - 11/05/18 14:00 QUANTITY OF GROWTH . NRG Stool bacteria identification by culture PRES USUAL NRG Serum or plasma lactate measurement (moles/volume) - 11/05/18 14:50 Serum or plasma lactate measurement (moles/volume) 3.10 mmol/L 0.50-2.00 Tick identification panel - 11/05/18 14:50 Serum Ehrlichia chaffeensis IgG antibody detection <1:16 <1:16 Serum Ehrlichia chaffeensis IgM antibody detection <1:10 <1:10 Serum Rickettsia rickettsii IgG antibody assay (units/volume) < <1:16 [place] spotted fever panel < <1:10 Francisella tularensis antibody assay <1:20 NRG LYME AB G M 0.06 % 0.00-0.89 Interpretation of Lyme disease antibody assay Negative Negative Complete urinalysis with reflex to culture - 11/05/18 16:00 Urine color determination DARK YELLOW NRG Urine clarity determination SL CLOUDY NRG Urine pH measurement by test strip 5 5-9 Specific gravity of urine by test strip 1.010 1.016-1.022 Urine protein assay by test strip, semi-quantitative 3+ NEGATIVE Urine glucose detection by automated test strip NEGATIVE NEGATIVE Erythrocytes detection in urine sediment by light microscopy 2+ NEGATIVE Urine ketones detection by automated test strip 1+ NEGATIVE Urine nitrite detection by test strip NEGATIVE NEGATIVE Urine total bilirubin detection by test strip 1+ NEGATIVE Urine urobilinogen measurement by automated test strip (mass/volume) 1 mg/dL NORMAL Urine leukocyte esterase detection by dipstick 1+ NEGATIVE Automated urine sediment erythrocyte count by microscopy (number/high power field) RARE NRG Automated urine sediment leukocyte count by microscopy (number/high power field) [HPF] NRG Bacteria detection in urine sediment by light microscopy TRACE NRG Squamous epithelial cells detection in urine sediment by light microscopy NONE NRG Crystals detection in urine sediment by light microscopy NONE NRG Casts detection in urine sediment by light microscopy PRESENT NRG Mucus detection in urine sediment by light microscopy MODERATE NRG Complete urinalysis with reflex to culture CULTURE PENDING NRG Hyaline casts detection in urine sediment by light microscopy 2-5 NRG Granular casts detection in urine sediment by light microscopy 0-2 NRG Bacterial urine culture - 11/05/18 16:00 Bacterial urine culture NG NRG Methicillin resistant Staphylococcus aureus (MRSA) screening culture - 11/05/18 16:55 Methicillin resistant Staphylococcus aureus (MRSA) screening culture NEG NRG Complete blood count (CBC) with automated white blood cell (WBC) differential - 11/06/18 02:30 Blood leukocytes automated count (number/volume) 14.2 10*3/uL 4.3-11.0 Blood erythrocytes automated count (number/volume) 2.60 10*6/uL 4.35-5.85 Venous blood hemoglobin measurement (mass/volume) 8.0 g/dL 13.3-17.7 Blood hematocrit (volume fraction) 24 % 40-54 Automated erythrocyte mean corpuscular volume 91 [foz_us] 80-99 Automated erythrocyte mean corpuscular hemoglobin (mass per erythrocyte) 31 pg 25-34 Automated erythrocyte mean corpuscular hemoglobin concentration measurement (mass/volume) 34 g/dL 32-36 Automated erythrocyte distribution width ratio 16.0 % 10.0- 14.5 Automated blood platelet count (count/volume) 221 10*3/uL 130-400 Automated blood platelet mean volume measurement 10.0 [foz_us] 7.4-10.4 Automated blood neutrophils/100 leukocytes 82 % 42-75 Automated blood lymphocytes/100 leukocytes 9 % 12-44 Blood monocytes/100 leukocytes 7 % 0-12 Automated blood eosinophils/100 leukocytes 2 % 0-10 Automated blood basophils/100 leukocytes 0 % 0-10 Blood neutrophils automated count (number/volume) 11.6 10*3 1.8-7.8 Blood lymphocytes automated count (number/volume) 1.3 10*3 1.0-4.0 Blood monocytes automated count (number/volume) 1.0 10*3 0.0- 1.0 Automated eosinophil count 0.2 10*3/uL 0.0-0.3 Automated blood basophil count (count/volume) 0.0 10*3/uL 0.0-0.1 Complete blood count (CBC) with automated white blood cell (WBC) differential - 11/06/18 03:17 Blood leukocytes automated count (number/volume) 4.1 10*3/uL 4.3-11.0 Blood erythrocytes automated count (number/volume) 4.12 10*6/uL 4.35-5.85 Venous blood hemoglobin measurement (mass/volume) 13.5 g/dL 13.3-17.7 Blood hematocrit (volume fraction) 37 % 40-54 Automated erythrocyte mean corpuscular volume 90 [foz_us] 80-99 Automated erythrocyte mean corpuscular hemoglobin (mass per erythrocyte) 33 pg 25-34 Automated erythrocyte mean corpuscular hemoglobin concentration measurement (mass/volume) 37 g/dL 32-36 Automated erythrocyte distribution width ratio 12.5 % 10.0- 14.5 Automated blood platelet count (count/volume) 179 10*3/uL 130-400 Automated blood platelet mean volume measurement 10.2 [foz_us] 7.4-10.4 Automated blood neutrophils/100 leukocytes 79 % 42-75 Automated blood lymphocytes/100 leukocytes 6 % 12-44 Blood monocytes/100 leukocytes 13 % 0-12 Automated blood eosinophils/100 leukocytes 1 % 0-10 Automated blood basophils/100 leukocytes 1 % 0-10 Blood neutrophils automated count (number/volume) 3.3 10*3 1.8-7.8 Blood lymphocytes automated count (number/volume) 0.3 10*3 1.0-4.0 Blood monocytes automated count (number/volume) 0.6 10*3 0.0- 1.0 Automated eosinophil count 0.0 10*3/uL 0.0-0.3 Automated blood basophil count (count/volume) 0.0 10*3/uL 0.0-0.1 Whole blood basic metabolic panel - 11/06/18 03:17 Serum or plasma sodium measurement (moles/volume) 137 mmol/L 135-145 Serum or plasma potassium measurement (moles/volume) 3.2 mmol/L 3.6-5.0 Serum or plasma chloride measurement (moles/volume) 110 mmol/L 98-107 Carbon dioxide 19 mmol/L 21-32 Serum or plasma anion gap determination (moles/volume) 8 mmol/L 5-14 Serum or plasma urea nitrogen measurement (mass/volume) 17 mg/dL 7-18 Serum or plasma creatinine measurement (mass/volume) 1.48 mg/dL 0.60-1.30 Serum or plasma urea nitrogen/creatinine mass ratio 11 NRG Serum or plasma creatinine measurement with calculation of estimated glomerular filtration rate 48 NRG Serum or plasma glucose measurement (mass/volume) 114 mg/dL 70-105 Serum or plasma calcium measurement (mass/volume) 7.0 mg/dL 8.5-10.1 Serum or plasma phosphate measurement (mass/volume) - 11/06/18 03:17 Serum or plasma phosphate measurement (mass/volume) 3.0 mg/dL 2.3-4.7 Magnesium - 11/06/18 03:17 Magnesium 1.5 mg/dL 1.8-2.4 Lipid 1996 panel - 11/06/18 03:17 Serum or plasma triglyceride measurement (mass/volume) 75 mg/dL <150 Serum or plasma cholesterol measurement (mass/volume) 103 mg/dL < 200 Serum or plasma cholesterol in HDL measurement (mass/volume) 18 mg/dL 40-60 Cholesterol in LDL [mass/volume] in serum or plasma by direct assay 73 mg/dL 1-129 Serum or plasma cholesterol in VLDL measurement (mass/volume) 15 mg/dL 5-40 Whole blood basic metabolic panel - 11/06/18 13:20 Serum or plasma sodium measurement (moles/volume) 137 mmol/L 135-145 Serum or plasma potassium measurement (moles/volume) 3.7 mmol/L 3.6-5.0 Serum or plasma chloride measurement (moles/volume) 112 mmol/L 98-107 Carbon dioxide 21 mmol/L 21-32 Serum or plasma anion gap determination (moles/volume) 4 mmol/L 5-14 Serum or plasma urea nitrogen measurement (mass/volume) 13 mg/dL 7-18 Serum or plasma creatinine measurement (mass/volume) 1.18 mg/dL 0.60-1.30 Serum or plasma urea nitrogen/creatinine mass ratio 11 NRG Serum or plasma creatinine measurement with calculation of estimated glomerular filtration rate > NRG Serum or plasma glucose measurement (mass/volume) 96 mg/dL 70-105 Serum or plasma calcium measurement (mass/volume) 7.3 mg/dL 8.5-10.1 Magnesium - 11/06/18 13:20 Magnesium 2.3 mg/dL 1.8-2.4 Complete blood count (CBC) with automated white blood cell (WBC) differential - 11/07/18 05:45 Blood leukocytes automated count (number/volume) 6.3 10*3/uL 4.3-11.0 Blood erythrocytes automated count (number/volume) 4.33 10*6/uL 4.35-5.85 Venous blood hemoglobin measurement (mass/volume) 13.9 g/dL 13.3-17.7 Blood hematocrit (volume fraction) 40 % 40-54 Automated erythrocyte mean corpuscular volume 92 [foz_us] 80-99 Automated erythrocyte mean corpuscular hemoglobin (mass per erythrocyte) 32 pg 25-34 Automated erythrocyte mean corpuscular hemoglobin concentration measurement (mass/volume) 35 g/dL 32-36 Automated erythrocyte distribution width ratio 13.6 % 10.0- 14.5 Automated blood platelet count (count/volume) 224 10*3/uL 130-400 Automated blood platelet mean volume measurement 10.8 [foz_us] 7.4-10.4 Automated blood neutrophils/100 leukocytes 70 % 42-75 Automated blood lymphocytes/100 leukocytes 16 % 12-44 Blood monocytes/100 leukocytes 13 % 0-12 Automated blood eosinophils/100 leukocytes 0 % 0-10 Automated blood basophils/100 leukocytes 0 % 0-10 Blood neutrophils automated count (number/volume) 4.5 10*3 1.8-7.8 Blood lymphocytes automated count (number/volume) 1.0 10*3 1.0-4.0 Blood monocytes automated count (number/volume) 0.9 10*3 0.0- 1.0 Automated eosinophil count 0.0 10*3/uL 0.0-0.3 Automated blood basophil count (count/volume) 0.0 10*3/uL 0.0-0.1 Whole blood basic metabolic panel - 11/07/18 05:45 Serum or plasma sodium measurement (moles/volume) 139 mmol/L 135-145 Serum or plasma potassium measurement (moles/volume) 4.0 mmol/L 3.6-5.0 Serum or plasma chloride measurement (moles/volume) 113 mmol/L 98-107 Carbon dioxide 17 mmol/L 21-32 Serum or plasma anion gap determination (moles/volume) 9 mmol/L 5-14 Serum or plasma urea nitrogen measurement (mass/volume) 15 mg/dL 7-18 Serum or plasma creatinine measurement (mass/volume) 1.31 mg/dL 0.60-1.30 Serum or plasma urea nitrogen/creatinine mass ratio 11 NRG Serum or plasma creatinine measurement with calculation of estimated glomerular filtration rate 55 NRG Serum or plasma glucose measurement (mass/volume) 116 mg/dL 70-105 Serum or plasma calcium measurement (mass/volume) 7.6 mg/dL 8.5-10.1 Serum or plasma phosphate measurement (mass/volume) - 11/07/18 05:45 Serum or plasma phosphate measurement (mass/volume) 2.8 mg/dL 2.3-4.7 Magnesium - 11/07/18 05:45 Magnesium 2.4 mg/dL 1.8-2.4 Complete blood count (CBC) with automated white blood cell (WBC) differential - 11/08/18 05:17 Blood leukocytes automated count (number/volume) 6.0 10*3/uL 4.3-11.0 Blood erythrocytes automated count (number/volume) 3.78 10*6/uL 4.35-5.85 Venous blood hemoglobin measurement (mass/volume) 12.4 g/dL 13.3-17.7 Blood hematocrit (volume fraction) 35 % 40-54 Automated erythrocyte mean corpuscular volume 92 [foz_us] 80-99 Automated erythrocyte mean corpuscular hemoglobin (mass per erythrocyte) 33 pg 25-34 Automated erythrocyte mean corpuscular hemoglobin concentration measurement (mass/volume) 36 g/dL 32-36 Automated erythrocyte distribution width ratio 13.3 % 10.0- 14.5 Automated blood platelet count (count/volume) 222 10*3/uL 130-400 Automated blood platelet mean volume measurement 10.5 [foz_us] 7.4-10.4 Automated blood neutrophils/100 leukocytes 63 % 42-75 Automated blood lymphocytes/100 leukocytes 23 % 12-44 Blood monocytes/100 leukocytes 12 % 0-12 Automated blood eosinophils/100 leukocytes 2 % 0-10 Automated blood basophils/100 leukocytes 1 % 0-10 Blood neutrophils automated count (number/volume) 3.8 10*3 1.8-7.8 Blood lymphocytes automated count (number/volume) 1.4 10*3 1.0-4.0 Blood monocytes automated count (number/volume) 0.7 10*3 0.0- 1.0 Automated eosinophil count 0.1 10*3/uL 0.0-0.3 Automated blood basophil count (count/volume) 0.0 10*3/uL 0.0-0.1 Whole blood basic metabolic panel - 11/08/18 05:17 Serum or plasma sodium measurement (moles/volume) 137 mmol/L 135-145 Serum or plasma potassium measurement (moles/volume) 3.9 mmol/L 3.6-5.0 Serum or plasma chloride measurement (moles/volume) 108 mmol/L 98-107 Carbon dioxide 20 mmol/L 21-32 Serum or plasma anion gap determination (moles/volume) 9 mmol/L 5-14 Serum or plasma urea nitrogen measurement (mass/volume) 9 mg/dL 7-18 Serum or plasma creatinine measurement (mass/volume) 1.14 mg/dL 0.60-1.30 Serum or plasma urea nitrogen/creatinine mass ratio 8 NRG Serum or plasma creatinine measurement with calculation of estimated glomerular filtration rate > NRG Serum or plasma glucose measurement (mass/volume) 88 mg/dL 70-105 Serum or plasma calcium measurement (mass/volume) 7.5 mg/dL 8.5-10.1 Serum or plasma phosphate measurement (mass/volume) - 11/08/18 05:17 Serum or plasma phosphate measurement (mass/volume) 2.8 mg/dL 2.3-4.7 Magnesium - 11/08/18 05:17 Magnesium 2.0 mg/dL 1.8-2.4 Encounters ACCT No. Visit Date/Time Discharge Status Pt. Type Provider Facility Loc./Unit Complaint [id number] 03/18/2014 07:57:00 03/18/2014 23:59:59 CLS Outpatient MARTHA CONLEY APRN [id number] 03/13/2014 17:33:00 03/13/2014 23:59:59 CLS Outpatient MARTHA CONLEY APRN [id number] 01/10/2013 10:00:00 01/10/2013 23:59:59 CLS Outpatient ISABELLA GLEASON MD [id number] 06/14/2012 08:55:00 06/14/2012 23:59:59 CLS Outpatient BINH HERNANDEZ DO [id number] 05/15/2012 11:40:00 05/15/2012 23:59:59 CLS Outpatient [id number] 05/11/2012 10:04:00 05/11/2012 23:59:59 CLS Outpatient MARTHA CONLEY APRN [id number] 11/05/2018 15:32:00 11/09/2018 10:00:00 DIS Inpatient ALANA OAKES MD [facility] 4TH BILATERAL PE,HYPOTENSION,DIARRHEA,DEHYDRATION,SEPS [id number] 11/01/2018 07:19:00 11/01/2018 11:00:00 DIS Outpatient CHERY HINOJOSA DO [facility] ER N/V/D;ABD PAIN [id number] 10/27/2018 08:01:00 10/27/2018 23:59:59 CLS Outpatient ALANA OAKES MD [facility] ENDO SCREENING [id number] 10/24/2018 05:38:00 10/24/2018 14:24:00 DIS Outpatient ALANA OAKES MD [facility] PREOP COLONOSCOPY [id number] 08/17/2018 06:01:00 08/17/2018 11:50:00 DIS Outpatient RACIEL GARSIA DO [facility] SDC RIGHT INGUINAL HERNIA [id number] 08/09/2018 11:06:00 08/09/2018 13:07:00 DIS Outpatient RACIEL GARSIA DO [facility] PREOP RIGHT INGUINAL HERNIA [id number] 04/28/2015 08:45:00 04/28/2015 23:59:59 CLS Outpatient VIOLETTE LEVY, ALANA Murillo [facility] CARD HYPERTENSION PERSISTANT ARTERIAL FIB [id number] 11/15/2018 18:31:00 ACT Emergency RAVEN UGALDE MD [facility] ER N/V/D
--- NOTE | 2018-11-15 18:59 | ED GI ---
General Chief Complaint: Abdominal/GI Problems Stated Complaint: N/V/D Source of Information: Patient Exam Limitations: No Limitations History of Present Illness Date Seen by Provider: Nov 15, 2018 Time Seen by Provider: 18:55 Initial Comments To ER by private vehicle from home with a rather sudden onset of nausea vomiting diarrhea and abdominal cramping diffusely. Patient was here in the emergency room on 11/03/18 and diagnosed with viral gastroenteritis. He returned on 11/05/18 and was admitted for 4 days before being discharged on the . He had several episodes of nausea vomiting diarrhea as well as a flareup of his atrial fibrillation. He was started on Eliquis. Since the when he was discharged his symptoms have improved, the diarrhea has been gone. Today he was hypertensive at 160/120 so he took one of his Olmesartan tablets. About an hour after taking that this abdominal pain diarrhea nausea and vomiting recurred. He believes it may be the Olmesartan was responsible for these symptoms on his 2 prior visits as well. He had a routine follow-up visit with Dr. Manrique today and at the time of his visit states he was feeling fine. He took a Levsin and pain pill at home and states that his abdominal pain is now much improved rated at 2 out of 10. He had about one hour of constant diarrhea at home just prior to arrival. Timing/Duration: 1 Hour Severity/Quality: Moderate Location: Generalized Abdomen Associated Symptoms: No Chest Pain, No Diaphoresis, No Fever/Chills; Nausea/Vomiting, Shortness of Air Allergies and Home Medications Allergies Coded Allergies: No Known Drug Allergies (Unverified , 11/01/18) Home Medications Apixaban 5 Mg Tablet, 5 MG PO BID Prescribed by: ALANA MANRIQUE on 11/09/18 0833 Cephalexin 250 Mg Tablet, 250 MG PO TIDWM Prescribed by: ALANA MANRIQUE on 11/09/18 0833 Dicyclomine HCl 20 Mg Tablet, 20 MG PO Q6H Prescribed by: CHERY HINOJOSA on 11/01/18 1041 Olmesartan Medoxomil 40 Mg Tablet, 40 MG PO DAILY, (Reported) Ondansetron 4 Mg Tab.rapdis, 4 MG PO Q6H PRN for NAUSEA/VOMITING-1ST LINE Prescribed by: ALANA MANRIQUE on 11/09/18 0833 Pantoprazole Sodium 40 Mg Tablet.dr, 40 MG PO DAILY Prescribed by: CHERY HINOJOSA on 11/01/18 1041 Patient Home Medication List Home Medication List Reviewed: Yes Review of Systems Review of Systems Constitutional: see HPI EENTM: No Symptoms Reported Respiratory: No Symptoms Reported Cardiovascular: No Symptoms Reported Gastrointestinal: See HPI, Abdominal Pain, Diarrhea, Nausea Genitourinary: No Symptoms Reported Musculoskeletal: no symptoms reported Skin: no symptoms reported Psychiatric/Neurological: No Symptoms Reported Endocrine: No Symptoms Reported Hematologic/Lymphatic: No Symptoms Reported Past Rfdnqsb-Kheayp-Fzxoia Hx Patient Social History Alcohol Beverage of Choice: Beer 2nd Hand Smoke Exposure: No Recent Foreign Travel: No Contact w/Someone Who Travel: No Recent Hopitalizations: No Immunizations Up To Date Tetanus Booster (TDap): Unknown PED Vaccines UTD: No Date of Influenza Vaccine: Mar 06, 2018 Seasonal Allergies Seasonal Allergies: Yes Past Medical History Surgeries: Yes Abdominal, Nose, Tonsillectomy Respiratory: No Cardiac: Yes (PT HAS DECLINED ANTICOAGULATION--TAKES ASPIRIN DAILY) Atrial Fibrillation, Hypertension Neurological: No Sexually Transmitted Disease: No HIV/AIDS: No Genitourinary: No Gastrointestinal: Yes Abdominal Hernia, Liver Disease/Jaundice, Diverticulosis Musculoskeletal: No Endocrine: No HEENT: Yes (GLASSES; S/P RHINOPLASTY/SEPTOPLASTY) Loss of Vision: Bilateral Hearing Impairment: Denies Cancer: No Psychosocial: No Integumentary: No Blood Disorders: No Adverse Reaction/Blood Tranf: No (N/A) Family Medical History Alcoholism 19 FATHER Cardiovascular disease G8 BROTHER FH: atrial fibrillation 19 MOTHER G8 BROTHER Gastroenteritis G8 BROTHER No Pertinent Family Hx Physical Exam Vital Signs Vital Signs - First Documented 11/15/18 18:35 Temp 98.2 Pulse 85 Resp 18 B/P (MAP) 108/70 (83) Pulse Ox 94 O2 Delivery Room Air Capillary Refill : Height/Weight/BMI Height: 5'8.00" Weight: 235lbs. 3.2oz. 106.278173tf; 34.3 BMI Method:Stated General Appearance: WD/WN, no apparent distress HEENT: PERRL/EOMI, normal ENT inspection Respiratory: no respiratory distress, no accessory muscle use Cardiovascular: tachycardia (150s-160s), irregularly irregular Gastrointestinal: normal bowel sounds, non tender, soft Extremities: normal range of motion, non-tender, pedal edema (2+) Neurologic/Psychiatric: alert, normal mood/affect, oriented x 3 Skin: normal color, warm/dry Focused Exam Lactate Level 11/15/18 18:45: Lactic Acid Level 2.26*H Lactic Acid Level Laboratory Tests Test 11/15/18 18:45 Lactic Acid Level 2.26 MMOL/L (0.50-2.00) *H Progress/Results/Core Measures Results/Orders Lab Results Laboratory Tests Test 11/15/18 18:45 Range/Units White Blood Count 6.5 4.3-11.0 10^3/uL Red Blood Count 5.01 4.35-5.85 10^6/uL Hemoglobin 16.2 13.3-17.7 G/DL Hematocrit 46 40-54 % Mean Corpuscular Volume 92 80-99 FL Mean Corpuscular Hemoglobin 32 25-34 PG Mean Corpuscular Hemoglobin Concent 35 32-36 G/DL Red Cell Distribution Width 13.4 10.0-14.5 % Platelet Count 259 130-400 10^3/uL Mean Platelet Volume 10.4 7.4-10.4 FL Neutrophils (%) (Auto) 95 H 42-75 % Lymphocytes (%) (Auto) 4 L 12-44 % Monocytes (%) (Auto) 0 0-12 % Eosinophils (%) (Auto) 1 0-10 % Basophils (%) (Auto) 0 0-10 % Neutrophils # (Auto) 6.2 1.8-7.8 X 10^3 Lymphocytes # (Auto) 0.3 L 1.0-4.0 X 10^3 Monocytes # (Auto) 0.0 0.0-1.0 X 10^3 Eosinophils # (Auto) 0.0 0.0-0.3 10^3/uL Basophils # (Auto) 0.0 0.0-0.1 10^3/uL Neutrophils % (Manual) 85 % Lymphocytes % (Manual) 5 % Monocytes % (Manual) 3 % Band Neutrophils 7 % Blood Morphology Comment NORMAL Sodium Level 141 135-145 MMOL/L Potassium Level 3.9 3.6-5.0 MMOL/L Chloride Level 105 98-107 MMOL/L Carbon Dioxide Level 22 21-32 MMOL/L Anion Gap 14 5-14 MMOL/L Blood Urea Nitrogen 11 7-18 MG/DL Creatinine 1.32 H 0.60-1.30 MG/DL Estimat Glomerular Filtration Rate 55 BUN/Creatinine Ratio 8 Glucose Level 112 H 70-105 MG/DL Lactic Acid Level 2.26 *H 0.50-2.00 MMOL/L Calcium Level 9.6 8.5-10.1 MG/DL Corrected Calcium 8.5-10.1 MG/DL Magnesium Level 1.5 L 1.8-2.4 MG/DL Total Bilirubin 0.7 0.1-1.0 MG/DL Aspartate Amino Transf (AST/SGOT) 33 5-34 U/L Alanine Aminotransferase (ALT/SGPT) 90 H 0-55 U/L Alkaline Phosphatase 75 40-136 U/L Troponin I < 0.028 <0.028 NG/ML Total Protein 7.5 6.4-8.2 GM/DL Albumin 4.6 H 3.2-4.5 GM/DL My Orders Orders - TRAVIS SUTTON C[employer]ER SERVICE SUPERVISOR Magnesium (11/15/18 18:50) Cbc With Automated Diff (11/15/18 18:50) Comprehensive Metabolic Panel (11/15/18 18:50) Troponin I (11/15/18 18:50) Ekg Tracing (11/15/18 18:50) Continuous Ekg Monitoring (11/15/18 18:50) Ed Iv/Invasive Line Start (11/15/18 18:50) Blood Culture (11/15/18 18:50) Lactic Acid Analyzer (11/15/18 18:50) Lactated Ringers (Lr 1000 Ml Iv Solution (11/15/18 19:00) Ns (Ivpb) (Sodium C... W/Diltiazem Iv Fo (11/15/18 19:00) Manual Differential (11/15/18 18:45) Magnesium 1 Gm/100 Ml Ivpb (Magnesium Kim (11/15/18 19:30) Chest 1 View, Ap/Pa Only (11/15/18 19:31) Ed Iv/Invasive Line Start (11/15/18 19:31) Diltiazem Cd 24 Hr Capsule (Cardizem Cd (11/15/18 19:45) Ns Iv 500 Ml (Sodium Chloride 0.9%) (11/15/18 20:45) Medications Given in ED Current Medications Medications Dose Ordered Sig/Gael Route Start Time Stop Time Status Last Admin Dose Admin Diltiazem HCl 180 mg ONCE ONCE PO 11/15/18 19:45 11/15/18 19:46 DC 11/15/18 19:58 180 MG Magnesium Sulfate/ Dextrose 100 ml @ 100 mls/hr ONCE ONCE IV 11/15/18 19:30 11/15/18 20:29 DC 11/15/18 19:54 100 MLS/HR Vital Signs/I&O 11/15/18 11/15/18 18:35 19:03 Temp 98.2 98.2 Pulse 85 94 Resp 18 13 B/P (MAP) 108/70 (83) 105/80 Pulse Ox 94 96 O2 Delivery Room Air Room Air Diagnostic Imaging Diagonstic Imaging: Xray Plain Films/CT/US/NM/MRI: chest Comments NAME: TALIA MACIAS [facility] REC#: [id number] PT STATUS: REG ER : 1955 PHYSICIAN: TRAVIS SUTTON APRN ADMIT DATE: 11/15/18/ER Draft Date of Exam:11/15/18 CHEST 1 VIEW, AP/PA ONLY INDICATION: Abdominal issues. TECHNIQUE: Single-view chest at 07:42 p.m. CORRELATION STUDY: 11/06/2018. FINDINGS: Heart size is mildly enlarged. Vasculature overall within normal limits. The lungs are clear with no consolidating infiltrate. There is no significant effusion or pneumothorax. IMPRESSION: 1. Borderline cardiac enlargement stable. No evidence of overt failure. Dictated on workstation # [id number] Dict: 11/15/181949 Trans: 11/15/181953 [id number] Interpreted by: KINJAL MCLAIN DO Electronically signed by: Departure Communication (Admissions) Time/Spoke to Admitting Phy: 20:[address] Fry who is on-call for hospitalist service. He agrees to admit, consult Dr. Soliz. Time/Spoke to Consulting Phy: 20:[address] Soliz. He agrees to consult. Olmesartan induced enteropathy is within the differential. On arrival his heart rate was narrow complex irregular with a rate of 154-168. 1 L bolus of LR started, Cardizem started at 10 mg an hour minus the bolus given his slight hypotension of 95/70 blood pressure.. He denies chest pain. 1928-I did notify Dr. Manrique of the patient's presence here in the emergency room and symptoms. Agrees we should stop the olmesartan at home 1941--> I'll order Cardizem CD 180 with the hopes that we can taper off of the Cardizem drip soon. Heart rate is down to 120 still irregular. Blood pressure 120/80. This is on Cardizem drip at 15 mg an hour Approximately 2034--->feeling overall better, heart rate down to 115 irregular, blood pressure down to 80s. 500 mL fluid bolus ordered and we will slow down the Cardizem drip from 15 mg to 10 mg an hour Impression Primary Impression: Atrial fibrillation with rapid ventricular response Additional Impressions: Enteritis Mild dehydration Disposition: ADMITTED INPATIENT Condition: Stable Admissions Decision to Admit Reason: Admit from ER (General) Decision to Admit/Date: Nov 15, 2018 Time/Decision to Admit Time: 19:04 Departure-Patient Inst. Referrals: ALANA MANRIQUE MD (PCP/Family) Primary Care Physician TRAVIS SUTTON APRN Nov 15, 2018 18:59
[2018-11-15 19:00] LABS: BASOPHILS % (AUTO) 0 % (0-10); EOSINOPHILS % (AUTO) 1 % (0-10); HEMATOCRIT 46 % (40-54); HEMOGLOBIN 16.2 G/DL (13.3-17.7); LYMPHOCYTES # (AUTO) 0.3 X 10^3 (1.0-4.0); LYMPHOCYTES % (AUTO) 4 % (12-44); MEAN CORPUSCULAR HEMOGLOBIN 32 PG (25-34); MEAN CORPUSCULAR HGB CONC 35 G/DL (32-36); MEAN CORPUSCULAR VOLUME 92 FL (80-99); MEAN PLATELET VOLUME 10.4 FL (7.4-10.4); MONOCYTES % (AUTO) 0 % (0-12); NEUTROPHILS # (AUTO) 6.2 X 10^3 (1.8-7.8); NEUTROPHILS % (AUTO) 95 % (42-75); PLATELET COUNT 259 10^3/uL (130-400); RED CELL DISTRIBUTION WIDTH 13.4 % (10.0-14.5); WHITE BLOOD COUNT 6.5 10^3/uL (4.3-11.0)
[2018-11-15] MEDS ORDERED: DILTIAZEM IV FOR DRIP 125 MG in NS (IVPB) 100 ML IV SCH (19:00)
[2018-11-15] MEDS ORDERED: LACTATED RINGERS 1,000 ML IV SCH (19:00)
--- NOTE | 2018-11-15 19:09 | NUR ---
Recieved pt report from STEVEN Rahman to assume care of pt @ this time.
[2018-11-15 19:18] LABS: ALANINE AMINOTRANSFERASE 90 U/L (0-55); ALBUMIN 4.6 GM/DL (3.2-4.5); ALKALINE PHOSPHATASE 75 U/L (40-136); BILIRUBIN,TOTAL 0.7 MG/DL (0.1-1.0); BUN/CREATININE RATIO 8; CALCIUM 9.6 MG/DL (8.5-10.1); CARBON DIOXIDE 22 MMOL/L (21-32); CHLORIDE 105 MMOL/L (98-107); CREATININE SERUM 1.32 MG/DL (0.60-1.30); GFR ESTIMATED 55; GLUCOSE 112 MG/DL (70-105); MAGNESIUM 1.5 MG/DL (1.8-2.4); POTASSIUM 3.9 MMOL/L (3.6-5.0); SODIUM 141 MMOL/L (135-145); TOTAL PROTEIN 7.5 GM/DL (6.4-8.2)
--- NOTE | 2018-11-15 19:20 | NUR ---
Called to pt room with report of pt being cold. Pt noted to be shivering. X5 warmed blankets applied.
[2018-11-15] MEDS ORDERED: MAGNESIUM 1 GM/100 ML IVPB 100 ML IV ONE (19:30)
[2018-11-15 19:33] LABS: BAND NEUTROPHILS 7 %; LYMPHOCYTES % (MANUAL) 5 %; MONOCYTES % (MANUAL) 3 %; NEUTROPHILS % (MANUAL) 85 %; RBC MORPH NORMAL
[2018-11-15] MEDS ORDERED: DILTIAZEM 180 MG (CARDIZEM CD) CAP PO ONE (19:45)
--- NOTE | 2018-11-15 19:55 | Diagnostic Imaging Report ---
INDICATION: Abdominal issues. TECHNIQUE: Single-view chest at 07:42 p.m. CORRELATION STUDY: 11/06/2018. FINDINGS: Heart size is mildly enlarged. Vasculature overall within normal limits. The lungs are clear with no consolidating infiltrate. There is no significant effusion or pneumothorax. IMPRESSION: 1. Borderline cardiac enlargement stable. No evidence of overt failure. Dictated by: Dictated on workstation # [id number]
--- NOTE | 2018-11-15 19:55 | NUR ---
Diltiazem infusion increased to 12mg/hr per provider order. Bp 100/79 P 126.
--- NOTE | 2018-11-15 20:32 | NUR ---
Diltiazem decreased to 10mg/hr d/t bp 86/73 P116
[2018-11-15] MEDS ORDERED: NS IV 1000 ML 1,000 ML ONE (20:42)
[2018-11-15] MEDS ORDERED: NS IV 500 ML 500 ML IV SCH (20:45)
--- NOTE | 2018-11-15 20:45 | NUR ---
Diltiazem held per provider order d/t bp 78/57 P 107.
--- OUTSIDE RECORDS SUMMARY | 2018-11-15 21:08 | XMS REPORT | Continuity of Care Document ---
Author Organization Unknown Address Unknown Allergies Active Description Code Type Severity Reaction Onset Reported/Identified Relationship to Patient Clinical Status Yes No Known Drug Allergies [id number] Drug Allergy Unknown N/A 11/01/2018 Medications There [...] 08/17/2018 SUN ROBIN, RACIEL B Ot Z79.82 GROUP HOME (CURRENT) USE OF ASPIRIN 08/17/2018 ZENJANUSZ ROIBN RACIEL B Ot 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 08/21/2018 SUN ROBIN, RACIEL [...] 08/21/2018 MADELEINE GARSIA DOIC B Ot Z79.82 GROUP HOME (CURRENT) USE OF ASPIRIN 08/21/2018 MADELEINE GARSIA DOIC B Ot 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 08/21/2018 MADELEINE GARSIA DOIC [...] 08/21/2018 MADELEINE GARSIA DOIC B Ot Z79.82 [employer] (CURRENT) USE OF ASPIRIN 08/21/2018 MADELEINE GARSIA DOIC B Ot Z79.899 OTHER GROUP HOME (CURRENT) DRUG THERAPY 08/23/2018 MADELEINE GARSIA DOIC [...] ADULT 08/23/2018 SUN RACIEL ROBIN Ot Z79.82 GROUP HOME (CURRENT) USE OF ASPIRIN 08/23/2018 SUN RACIEL ROBIN Ot Z79.899 OTHER GROUP HOME (CURRENT) DRUG THERAPY 10/24/2018 ALANA OAKES MD [...] NE 11/01/2018 ALANA OAKES MD Ot Z79.82 GROUP HOME (CURRENT) USE OF ASPIRIN 11/01/2018 ALANA OAKES MD Ot Z79.899 OTHER GROUP HOME (CURRENT) DRUG THERAPY 11/01/2018 ALANA OAKES MD [...] NE 11/01/2018 ALANA OAKES MD Ot Z79.82 [employer] (CURRENT) USE OF ASPIRIN 11/01/2018 ALANA OAKES MD Ot 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 11/01/2018 ALANA OAKES MD [...] NE 11/01/2018 ALANA OAKES MD Ot Z79.82 [employer] (CURRENT) USE OF ASPIRIN 11/01/2018 ALANA OAKES MD Ot Z79.899 OTHER GROUP HOME (CURRENT) DRUG THERAPY 11/06/2018 MICAELA DO, CHERY K Ot I10 ESSENTIAL (PRIMARY) HYPERTENSION 11/06/2018 MICALEA DO, CHERY K Ot I48.91 UNSPECIFIED ATRIAL FIBRILLATION 11/06/2018 MICAELA DO, CHERY K Ot K52.9 NONINFECTIVE GASTROENTERITIS AND COLITIS 11/06/2018 MICAELA DO, CHERY K Ot R11.2 NAUSEA WITH VOMITING, UNSPECIFIED 11/06/2018 MICAELA DO, CHERY K Ot Z79.82 GROUP HOME (CURRENT) USE OF ASPIRIN 11/06/2018 MICAELA DO, [...] COLLAPSE 11/09/2018 ALANA OAKES MD Ot Z79.82 [employer] (CURRENT) USE OF ASPIRIN 11/09/2018 ALANA OAKES [...] COLLAPSE 11/09/2018 ALANA OAKES MD Ot Z79.82 [employer] SAL[employer] (CURRENT) USE OF ASPIRIN 11/09/2018 ALANA OAKES [...] NE 11/09/2018 ALANA OAKES MD Ot Z79.82 GROUP HOME (CURRENT) USE OF ASPIRIN 11/09/2018 ALANA OAKES MD Ot Z79.899 OTHER GROUP HOME (CURRENT) DRUG THERAPY Procedures Code [place] [address] ROUTINE VENIPUNCTURE 05/11/2012 84290 CBC 05/11/2012 71664 LIPID PANEL 05/11/2012 58286 CMP 05/11/2012 7925036 GFR CALC (RESULT ONLY) 05/11/2012 90091 CRP HS (CARDIO) 05/12/2012 02291 TSH 05/12/2012 77695 BNP 05/12/2012 68503 XRAY CHEST 2 VIEW 05/12/2012 49712 EKG, TRACING (IN-HOUSE) 05/12/2012 Cardiolog Andre Mccullough 05/12/2012 81071 A1C (IN-HOUSE) 05/15/2012 46940 OXIMETRY 06/14/2012 22302 ECHO 2D 06/14/2012 89277 ROUTINE VENIPUNCTURE 03/18/2014 52014 CBC 03/18/2014 22265 CMP 03/18/2014 12111 LIPID PANEL 03/18/2014 [id number] GFR CALC (RESULT ONLY) 03/18/2014 [id number] INSERTION OF INFUSION DEV INTO SUP VENA [...] rickettsii IgG antibody assay (units/volume) < <1:16 Lolita spotted fever panel < <1:10 Francisella tularensis [...] - 11/08/18 05:17 Magnesium 2.0 mg/dL 1.8-2.4 Complete blood count (CBC) with automated white blood cell (WBC) differential - 11/15/18 18:45 Blood leukocytes automated count (number/volume) 6.5 10*3/uL 4.3-11.0 Blood erythrocytes automated count (number/volume) 5.01 10*6/uL 4.35-5.85 Venous blood hemoglobin measurement (mass/volume) 16.2 g/dL 13.3-17.7 Blood hematocrit (volume fraction) 46 % 40-54 Automated erythrocyte mean corpuscular volume 92 [foz_us] 80-99 Automated erythrocyte mean corpuscular hemoglobin (mass per erythrocyte) 32 pg 25-34 Automated erythrocyte mean corpuscular hemoglobin concentration measurement (mass/volume) 35 g/dL 32-36 Automated erythrocyte distribution width ratio 13.4 % 10.0- 14.5 Automated blood platelet count (count/volume) 259 10*3/uL 130-400 Automated blood platelet mean volume measurement 10.4 [foz_us] 7.4-10.4 Automated blood neutrophils/100 leukocytes 95 % 42-75 Automated blood lymphocytes/100 leukocytes 4 % 12-44 Blood monocytes/100 leukocytes 0 % 0-12 Automated blood eosinophils/100 leukocytes 1 % 0-10 Automated blood basophils/100 leukocytes 0 % 0-10 Blood neutrophils automated count (number/volume) 6.2 10*3 1.8-7.8 Blood lymphocytes automated count (number/volume) 0.3 10*3 1.0-4.0 Blood monocytes automated count (number/volume) 0.0 10*3 0.0- 1.0 Automated eosinophil count 0.0 10*3/uL 0.0-0.3 Automated blood basophil count (count/volume) 0.0 10*3/uL 0.0-0.1 Comprehensive metabolic panel - 11/15/18 18:45 Serum or plasma sodium measurement (moles/volume) 141 mmol/L 135-145 Serum or plasma potassium measurement (moles/volume) 3.9 mmol/L 3.6-5.0 Serum or plasma chloride measurement (moles/volume) 105 mmol/L 98-107 Carbon dioxide 22 mmol/L 21-32 Serum or plasma anion gap determination (moles/volume) 14 mmol/L 5-14 Serum or plasma urea nitrogen measurement (mass/volume) 11 mg/dL 7-18 Serum or plasma creatinine measurement (mass/volume) 1.32 mg/dL 0.60-1.30 Serum or plasma urea nitrogen/creatinine mass ratio 8 NRG Serum or plasma creatinine measurement with calculation of estimated glomerular filtration rate 55 NRG Serum or plasma glucose measurement (mass/volume) 112 mg/dL 70-105 Serum or plasma calcium measurement (mass/volume) 9.6 mg/dL 8.5-10.1 Serum or plasma total bilirubin measurement (mass/volume) 0.7 mg/dL 0.1-1.0 Serum or plasma alkaline phosphatase measurement (enzymatic activity/volume) 75 U/L 40-136 Serum or plasma aspartate aminotransferase measurement (enzymatic activity/volume) 33 U/L 5-34 Serum or plasma alanine aminotransferase measurement (enzymatic activity/volume) 90 U/L 0-55 Serum or plasma protein measurement (mass/volume) 7.5 g/dL 6.4-8.2 Serum or plasma albumin measurement (mass/volume) 4.6 g/dL 3.2-4.5 Magnesium - 11/15/18 18:45 Magnesium 1.5 mg/dL 1.8-2.4 Serum or plasma troponin i.cardiac measurement (mass/volume) - 11/15/18 18:45 Serum or plasma troponin i.cardiac measurement (mass/volume) < ng/mL <0.028 Manual absolute plasma cell count - 11/15/18 18:45 Blood monocytes/100 leukocytes 3 % NRG Manual blood segmented neutrophils/100 leukocytes 85 % NRG Blood band neutrophils/100 leukocytes 7 % NRG Manual blood lymphocytes/100 leukocytes 5 % NRG Blood erythrocyte morphology finding identification NORMAL NRG Blood lactic acid measurement (moles/volume) - 11/15/18 18:45 Blood lactic acid measurement (moles/volume) 2.26 mmol/L 0.50- 2.00 Encounters ACCT No. Visit Date/Time Discharge Status Pt. Type Provider Facility Loc./Unit Complaint [id number] 03/18/2014 07:57:00 03/18/2014 23:59:59 CLS Outpatient MARTHA CONLEY APRN [id number] 03/13/2014 17:33:00 03/13/2014 23:59:59 CLS Outpatient MARTHA CONLEY APRN [id number] 01/10/2013 10:00:00 01/10/2013 23:59:59 CLS Outpatient VICTORINO LEVY, ISABELLA [id number] 06/14/2012 08:55:00 06/14/2012 23:59:59 CLS Outpatient BINH HERNANDEZ DO [id number] 05/15/2012 11:40:00 05/15/2012 23:59:59 CLS Outpatient [id number] 05/11/2012 10:04:00 05/11/2012 23:59:59 CLS Outpatient MARTHA CONLEY APRN [id number] 11/05/2018 15:32:00 11/09/2018 10:00:00 DIS Inpatient ALANA OAKES MD [facility] 4TH BILATERAL PE,HYPOTENSION,DIARRHEA,DEHYDRATION,SEPS [id number] 11/01/2018 07:19:00 11/01/2018 11:00:00 DIS Outpatient MICAELA DO CHERY Fahad [facility] ER N/V/D;ABD PAIN [id number] 10/27/2018 08:01:00 10/27/2018 23:59:59 CLS Outpatient ALANA OAKES MD [facility] ENDO SCREENING [id number] 10/24/2018 05:38:00 10/24/2018 14:24:00 DIS Outpatient ALANA OAKES MD [facility] PREOP COLONOSCOPY [id number] 08/17/2018 06:01:00 08/17/2018 11:50:00 DIS Outpatient RACIEL GARSIA DO [facility] SD RIGHT INGUINAL HERNIA [id number] 08/09/2018 11:06:00 08/09/2018 13:07:00 DIS Outpatient RACIEL GARSIA DO [facility] PREOP RIGHT INGUINAL HERNIA [id number] 04/28/2015 08:45:00 04/28/2015 23:59:59 CLS Outpatient ALANA OAKES MD [facility] CARD HYPERTENSION PERSISTANT ARTERIAL FIB [id number] 11/15/2018 20:45:00 ACT Inpatient LUH SPARKS DO [facility] ICU A-FIB w RVR
[2018-11-15] MEDS ORDERED: ONDANSETRON 4 MG/2 ML (SDV) Z0FRAN IVP ONE (21:15)
[2018-11-15] MEDS ORDERED: fentaNYL INJECTION 100 MCG/2 ML AMP IVP ONE (21:15)
--- NOTE | 2018-11-15 21:34 | NUR ---
Diltiazem restarted per provier order @ 5mg/hr. BP 95/68 P 134
--- NOTE | 2018-11-15 22:15 | NUR ---
TALIA COLLEEN admitted to room CU8-1, with an admitting diagnosis of A-FIB WITH RVR, on 11/15/18 from ED via STRETCHER, accompanied by HOSPITAL STAFF. TALIA MACIAS introduced to surroundings, call light, bed controls, phone, TV, temperature control, lights, meal times, smoking policy, visitor policy, side rail policy, bathrooms and showers. Patient Rights given to patient in the handbook.TALIA MACIAS verbalizes understanding that [facility] is not responsible for the loss or damage to any personal effects or valuables that are kept in the patients posession during their hospitalization. TALIA MACIAS verbalizes understanding of Interdisciplinary Patient Education. Patient and/or family were informed about the Rapid Response Team and its purpose.
[2018-11-15 22:30] VITALS: BP 103/66
[2018-11-15 22:45] VITALS: BP 103/66
[2018-11-15] MEDS ORDERED: HYOSCYAMINE 0.125 MG (LEVSIN) TAB SL PRN (23:00)
[2018-11-15] MEDS ORDERED: ONDANSETRON 4 MG/2 ML (SDV) Z0FRAN IV PRN (23:00)
[2018-11-15] MEDS ORDERED: DILTIAZEM 125 MG/NS 100 ML IV SCH ×2 (23:00)
[2018-11-15] MEDS ORDERED: fentaNYL INJECTION 100 MCG/2 ML AMP IV PRN (23:00)
[2018-11-15] MEDS ORDERED: MAGNESIUM 1 GM/D5W 100 ML IVPB IV ONE (23:00)
[2018-11-15 23:15] VITALS: BP 103/58
[2018-11-15 23:30] VITALS: BP 80/65
[2018-11-15 23:33] VITALS: BP 98/70
[2018-11-15 23:45] VITALS: BP 78/68
[2018-11-16] VITALS (17 sets, daily range): BP systolic 74–112; BP diastolic 47–72
[2018-11-16] MEDS: LACTATED RINGERS 1,000 ML IV SCH ×4 (00:39→17:21)
--- NOTE | 2018-11-16 04:00 | NUR ---
CALLED E-ICU TO REPORT THAT PATIENT'S BLOOD PRESSURE IS NOW 80'S/50'S AND THAT CARDIZEM HAS BEEN OFF FOR AN HOUR. RECEIVED ORDER FOR 500ML NS BOLUS WITH REPEAT X1 IF NEEDED. WILL CONTINUE TO MONITOR. 629-DR. MCGILL TO THE FLOOR AND INFORMED HIM THAT PATIENT IS STILL HYPOTENSIVE AFTER 1L TOTAL NS BOLUS. RECEIVED ORDER FOR AN ADDITIONAL 1L NS BOLUS.
[2018-11-16 04:09] LABS: BASOPHILS % (AUTO) 0 % (0-10); EOSINOPHILS % (AUTO) 0 % (0-10); HEMATOCRIT 41 % (40-54); HEMOGLOBIN 14.3 G/DL (13.3-17.7); LYMPHOCYTES # (AUTO) 0.1 X 10^3 (1.0-4.0); LYMPHOCYTES % (AUTO) 1 % (12-44); MEAN CORPUSCULAR HEMOGLOBIN 32 PG (25-34); MEAN CORPUSCULAR HGB CONC 35 G/DL (32-36); MEAN CORPUSCULAR VOLUME 92 FL (80-99); MEAN PLATELET VOLUME 10.9 FL (7.4-10.4); MONOCYTES # (AUTO) 0.6 X 10^3 (0.0-1.0); MONOCYTES % (AUTO) 5 % (0-12); NEUTROPHILS # (AUTO) 11.5 X 10^3 (1.8-7.8); NEUTROPHILS % (AUTO) 94 % (42-75); PLATELET COUNT 259 10^3/uL (130-400); RED CELL DISTRIBUTION WIDTH 13.5 % (10.0-14.5); WHITE BLOOD COUNT 12.3 10^3/uL (4.3-11.0)
[2018-11-16 04:35] LABS: CALCIUM 8.4 MG/DL (8.5-10.1); CREATININE SERUM 2.54 MG/DL (0.60-1.30); MAGNESIUM 1.9 MG/DL (1.8-2.4); PHOSPHORUS 2.1 MG/DL (2.3-4.7); POTASSIUM 4.6 MMOL/L (3.6-5.0)
[2018-11-16] MEDS ORDERED: MAGNESIUM 1 GM/100 ML IVPB 100 ML IV SCH (06:00)
[2018-11-16] MEDS ORDERED: NS IV 500 ML 500 ML IV ONE (06:00)
[2018-11-16] MEDS ORDERED: KCL 20 MEQ TAB (K-DUR) PO SCH (06:00)
[2018-11-16] MEDS ORDERED: POTASSIUM CL 10MEQ/50ML IVPB 50 ML IV SCH (06:00)
[2018-11-16] MEDS ORDERED: NS IV 500 ML 500 ML IV SCH ×2 (06:15→07:45)
--- NOTE | 2018-11-16 06:42 | Diagnostic Imaging Report ---
INDICATION: Arrhythmia. Portable chest 3:11 AM FINDINGS: Heart size and pulmonary vascularity are normal. Lungs are clear. There are no effusions or pneumothoraces. IMPRESSION: Negative chest. Dictated by: Dictated on workstation # [id number]
--- NOTE | 2018-11-16 07:09 | Consultation-Cardiology ---
HPI-Cardiology Cardiology Consultation Date of Consultation 11/16/18 Date of Admission Time Seen by Provider: 07:04 Indication: atrial fibrillation HPI 63 years old gentleman with chronic permanent atrial fibrillation, controlled on low-dose beta blockers. Was in his usual state of health until recently when he started having recurrent episodes of nausea and vomiting and diarrhea with hypotension and syncope. During his recent hospitalization there was suspicion of bilateral small pulmonary embolism, venous Doppler was negative. Patient was started on Eliquis. Was doing well after his discharge earlier this week until yesterday evening when he started to have abdominal pain followed by nausea vomiting and diarrhea. He denied any chest pain, no palpitation, no fever or chills. He was hypotensive and was dizzy and lightheaded. Has been receiving IV fluid but still having active diarrhea and still hypotensive. Heart rate is controlled Home Medications & Allergies Allergies: Coded Allergies: No Known Drug Allergies (Unverified , 11/01/18) Home Medication List Reviewed: Yes WXS-Azdsbi-Onarch Hx Patient Social History Marital Status: Employed/Student: employed Alcohol Use: Occasionally Uses Recreational Drug Use: No Smoking Status: Never a Smoker 2nd Hand Smoke Exposure: No Recent Foreign Travel: No Recent Infectious Disease Expo: No Recent Hopitalizations: Yes Immunizations Up To Date Tetanus Booster (TDap): Unknown Date of Influenza Vaccine: Mar 06, 2018 Past Medical History discussed below Family Medical History Significant Family History: No Pertinent Family Hx Family History: Alcoholism 19 FATHER Cardiovascular disease G8 BROTHER FH: atrial fibrillation 19 MOTHER G8 BROTHER Gastroenteritis G8 BROTHER Review of Systems-General Review of Systems Constitutional: see HPI, malaise, weakness EENTM: see HPI, no symptoms reported Respiratory: no symptoms reported, see HPI Cardiovascular: see HPI, syncope Gastrointestinal: no symptoms reported, see HPI, abdominal pain, diarrhea, nausea, vomiting Genitourinary: no symptoms reported, see HPI Musculoskeletal: no symptoms reported, see HPI Skin: no symptoms reported, see HPI Psychiatric/Neurological: No Symptoms Reported, See HPI Reviewed Test Results Reviewed Test Results Lab Laboratory Tests Test 11/15/18 18:45 11/15/18 21:20 11/16/18 01:00 11/16/18 03:35 Range/Units White Blood Count 6.5 12.3 H 4.3-11.0 10^3/uL Red Blood Count 5.01 4.42 4.35-5.85 10^6/uL Hemoglobin 16.2 14.3 13.3-17.7 G/DL Hematocrit 46 41 40-54 % Mean Corpuscular Volume 92 92 80-99 FL Mean Corpuscular Hemoglobin 32 32 25-34 PG Mean Corpuscular Hemoglobin Concent 35 35 32-36 G/DL Red Cell Distribution Width 13.4 13.5 10.0-14.5 % Platelet Count 259 259 130-400 10^3/uL Mean Platelet Volume 10.4 10.9 H 7.4-10.4 FL Neutrophils (%) (Auto) 95 H 94 H 42-75 % Lymphocytes (%) (Auto) 4 L 1 L 12-44 % Monocytes (%) (Auto) 0 5 0-12 % Eosinophils (%) (Auto) 1 0 0-10 % Basophils (%) (Auto) 0 0 0-10 % Neutrophils # (Auto) 6.2 11.5 H 1.8-7.8 X 10^3 Lymphocytes # (Auto) 0.3 L 0.1 L 1.0-4.0 X 10^3 Monocytes # (Auto) 0.0 0.6 0.0-1.0 X 10^3 Eosinophils # (Auto) 0.0 0.0 0.0-0.3 10^3/uL Basophils # (Auto) 0.0 0.0 0.0-0.1 10^3/uL Neutrophils % (Manual) 85 % Lymphocytes % (Manual) 5 % Monocytes % (Manual) 3 % Band Neutrophils 7 % Blood Morphology Comment NORMAL Sodium Level 141 134 L 135-145 MMOL/L Potassium Level 3.9 4.6 3.6-5.0 MMOL/L Chloride Level 105 109 H 98-107 MMOL/L Carbon Dioxide Level 22 15 L 21-32 MMOL/L Anion Gap 14 10 5-14 MMOL/L Blood Urea Nitrogen 11 16 7-18 MG/DL Creatinine 1.32 H 2.54 #H 0.60-1.30 MG/DL Estimat Glomerular Filtration Rate 55 26 BUN/Creatinine Ratio 8 6 Glucose Level 112 H 148 H 70-105 MG/DL Lactic Acid Level 2.26 *H 1.77 0.50-2.00 MMOL/L Calcium Level 9.6 8.4 L 8.5-10.1 MG/DL Corrected Calcium 8.5-10.1 MG/DL Magnesium Level 1.5 L 1.9 1.8-2.4 MG/DL Total Bilirubin 0.7 0.1-1.0 MG/DL Aspartate Amino Transf (AST/SGOT) 33 5-34 U/L Alanine Aminotransferase (ALT/SGPT) 90 H 0-55 U/L Alkaline Phosphatase 75 40-136 U/L Troponin I < 0.028 < 0.028 <0.028 NG/ML Total Protein 7.5 6.4-8.2 GM/DL Albumin 4.6 H 3.2-4.5 GM/DL Phosphorus Level 2.1 L 2.3-4.7 MG/DL Physical Exam Physical Exam Vital Signs Vital Signs - First Documented 11/15/18 18:35 Temp 98.2 Pulse 85 Resp 18 B/P (MAP) 108/70 (83) Pulse Ox 94 O2 Delivery Room Air Capillary Refill : Less Than 3 Seconds Height, Weight, BMI Height: 5'8.00" Weight: 222lbs. 0.0oz. 100.950871ww; 33.8 BMI Method:Stated General Appearance: WD/WN, Mild Distress Eyes: Bilateral Eye Normal Inspection, Bilateral Eye PERRL, Bilateral Eye EOMI HEENT: PERRL/EOMI, TMs Normal, Normal ENT Inspection, Pharynx Normal, Moist Mucous Membranes Neck: Full Range of Motion, Normal Inspection, Non Tender, Supple, Carotid Bruit Respiratory: Chest Non Tender, Normal Breath Sounds, No Accessory Muscle Use, No Respiratory Distress Cardiovascular: No Edema, No Gallop, No JVD, No Murmur, Normal Peripheral Pulses, Irregularly Irregular Gastrointestinal: Normal Bowel Sounds, No Organomegaly, No Pulsatile Mass, Non Tender, Soft Back: Normal Inspection, No CVA Tenderness, No Vertebral Tenderness Extremity: Normal Capillary Refill, Normal Inspection, Normal Range of Motion, Non Tender, No Calf Tenderness, No Pedal Edema Neurologic/Psychiatric: Alert, Oriented x3, No Motor/Sensory Deficits, Normal Mood/Affect Skin: Normal Color, Warm/Dry Lymphatic: No Adenopathy A/P-Cardiology Admission Diagnosis Chronic permanent atrial fibrillation Diarrhea Hypotension Syncope Assessment/Plan Atrial fibrillation, chronic permanent atrial fibrillation diagnosed in 2007. Has been controlled. Currently borderline hypotensive. Receiving IV fluid Abdominal pain, nausea and vomiting and diarrhea. Recurrent for the third time, managed by primary care team. Questionable bilateral small pulmonary embolism noted incidentally on CT scan on November 05, 2018, venous Doppler was negative, patient has been on Eliquis since then for the atrial fibrillation and the pulmonary embolism Hypertension, currently hypotensive, receiving IV fluid and holding all his blood pressure medication Questionable intolerance Olmisartan, reporting abdominal pain and nausea v omiting after taking the medication Syncope, secondary to hypotension, better at this time Clinical Quality Measures DVT/VTE Risk/Contraindication: Risk Factor Score Per Nursin RFS Level Per Nursing on Admit: 4+=Very High GABRIELA ROUSSEAU MD Nov 16, 2018 07:09
[2018-11-16] MEDS ORDERED: NS IV 1000 ML 1,000 ML IV SCH (08:00)
[2018-11-16] MEDS: MAGNESIUM 1 GM/100 ML IVPB 100 ML IV SCH (08:16)
[2018-11-16] MEDS ORDERED: APIX5TAB PO (09:14)
[2018-11-16] MEDS ORDERED: DICY20TA10 PO (09:14)
[2018-11-16] MEDS ORDERED: ONDA4TAB11 PO (09:14)
--- NOTE | 2018-11-16 09:14 | NUR ---
SPOKE WITH THE PATIENT ABOUT HIS MEDICATIONS. HE STATES SINCE HIS LAST DISCHARGE HE FINISHED HIS ANTIBIOTICS AND IS NO LONGER TAKING THE PROTONIX. HE IS TAKING THE ELIQUIS BID AND HAS USED THE DICYCLOMINE AND ZOFRAN NEEDED. HE WAS TAKING THE OLMESARTAN PRIOR TO ADMISSION BUT HAS NOW BEEN TOLD HE IS ALLERGIC TO IT. I LEFT IT ON THE MED REC AT THIS TIME TO BE ADDRESSED AT DISCHARGE.
--- NOTE | 2018-11-16 11:00 | NUR ---
Pastoral care visit.
--- NOTE | 2018-11-16 11:48 | Pulmonary Consultation ---
History of Present Illness History of Present Illness Date of Consultation 11/16/18 11:44 Time Seen by Provider: 09:29 Date of Admission Reason for Visit: atrial fibrillation History of Present Illness 63yo with hx of Afib presented secondary to recurrent episodes of N/V/D followed by syncope. In ED found to have hypotension. During a recent hospitalization pt had questionable small segmental PE on CT scan. Dopplers LE bilaterally were negative. PT is on Eliquis fransico with Afib. He denied any chest pain, no palpitation, no fever or chills. He was hypotensive and was dizzy and lightheaded. I am consulted for pulmonary management. Allergies and Home Medications Allergies Coded Allergies: olmesartan (Verified Allergy, Intermediate, ABDOMNIAL PAIN/NAUSEA/VOMITING/DIARRHEA, 11/16/18) Home Medications Apixaban 5 Mg Tablet, 5 MG PO BID, (Reported) Chlorthalidone 25 Mg Tablet, 25 MG PO DAILY Prescribed by: ALANA OAKES on 11/17/18 1343 Dicyclomine HCl 20 Mg Tablet, 20 MG PO Q6H PRN for ABDOMINAL PAIN, (Reported) Ondansetron 4 Mg Tab.rapdis, 4 MG PO Q6H PRN for NAUSEA/VOMITING-1ST LINE, (Reported) Potassium Chloride 8 Meq Tablet.er, 8 MEQ PO DAILY Prescribed by: ALANA OAKES on 11/17/18 1343 Past Bmpxpsr-Bmepgt-Tyhnrs Hx Patient Social History Alcohol Use: Occasionally Uses Number of Drinks Today: AA Alcohol Beverage of Choice: Beer Recreational Drug Use: No Smoking Status: Never a Smoker 2nd Hand Smoke Exposure: No Recent Foreign Travel: No Contact w/Someone Who Travel: No Recent Infectious Disease Expo: No Recent Hopitalizations: Yes Immunizations Up To Date Tetanus Booster (TDap): Unknown PED Vaccines UTD: No Date of Influenza Vaccine: Mar 06, 2018 Seasonal Allergies Seasonal Allergies: Yes Past Medical History Surgeries: Yes Abdominal, Nose, Tonsillectomy Respiratory: No Cardiac: Yes (PT HAS DECLINED ANTICOAGULATION--TAKES ASPIRIN DAILY) Atrial Fibrillation, Hypertension Neurological: No Sexually Transmitted Disease: No HIV/AIDS: No Genitourinary: No Gastrointestinal: Yes Abdominal Hernia, Liver Disease/Jaundice, Diverticulosis Musculoskeletal: No Endocrine: No HEENT: Yes (GLASSES; S/P RHINOPLASTY/SEPTOPLASTY) Loss of Vision: Bilateral Hearing Impairment: Denies Cancer: No Psychosocial: No Integumentary: No Blood Disorders: No Adverse Reaction/Blood Tranf: No (N/A) Family Medical History Alcoholism 19 FATHER Cardiovascular disease G8 BROTHER FH: atrial fibrillation 19 MOTHER G8 BROTHER Gastroenteritis G8 BROTHER No Pertinent Family Hx Review of Systems Time Seen by Provider: 09:33 Constitutional: Sweats, Weakness, Malaise; No: Fever, Chills, Other Eyes: No: Pain, Vision change, Conjunctivae inflammation, Eyelid inflammation, Other, Redness ENT: No: Ear pain, Ear discharge, Nose pain, Nose discharge, Nose congestion, Mouth pain, Mouth swelling, Throat pain, Throat swelling, Other Respiratory: Cough, Dry, Shortness of breath, SOB with excertion; No: Wheezing, Hemoptysis, Pleuritic Pain, Sputum, Wheezing, Other Cardiovascular: Paroxysmal Noc. Dyspnea, Lt Headedness; No: Chest Pain, Palpitations, Orthopnea, Edema, Other Gastrointestinal: Nausea, Vomiting, Diarrhea Sepsis Event Evaluation Height, Weight, BMI Height: 5'8.00" Weight: 222lbs. 0.0oz. 100.145653fs; 33.8 BMI Method:Stated Exam Exam Vital Signs Date Time Temp Pulse Resp B/P (MAP) Pulse Ox O2 Delivery O2 Flow Rate FiO2 11/16/18 11:00 60 8 103/60 (74) 93 Room Air 11/16/18 10:00 68 18 96/67 (77) 94 Room Air 11/16/18 09:00 74 17 79/55 (63) 94 Room Air 11/16/18 08:00 99.0 11/16/18 08:00 86 18 88/65 (73) 90 Room Air 11/16/18 08:00 Room Air 11/16/18 07:00 79 11/16/18 07:00 88 16 94/72 (79) 91 Room Air 11/16/18 06:00 85 17 100/65 (77) 92 Room Air 11/16/18 05:11 83 16 82/58 (66) 92 Room Air 11/16/18 05:00 76 37 74/54 (61) 92 Room Air 11/16/18 04:00 98.9 11/16/18 04:00 94 Room Air 11/16/18 04:00 85 14 79/54 (62) 94 Room Air 11/16/18 03:30 74 22 91/69 (76) 95 Room Air 11/16/18 03:00 76 21 80/47 (58) 91 Room Air 11/16/18 02:03 75 21 93/60 (71) 89 Room Air 11/16/18 01:00 89 21 89/61 (70) 92 Room Air 11/16/18 01:00 89 11/16/18 00:00 99.8 11/16/18 00:00 96 Room Air 11/16/18 00:00 98 20 96/69 (78) 93 Room Air 11/15/18 23:45 104 24 78/68 (71) 92 Room Air 11/15/18 23:33 110 21 98/70 (79) 94 Room Air 11/15/18 23:30 112 15 80/65 (70) 93 Room Air 11/15/18 23:15 116 28 103/58 (73) 94 Room Air 11/15/18 23:00 128 14 93 Room Air 11/15/18 22:45 129 10 103/66 (78) 92 Room Air 11/15/18 22:33 122 11/15/18 22:30 129 10 103/66 (78) 92 Room Air 11/15/18 22:15 99.2 11/15/18 22:15 96 Room Air 11/15/18 22:15 98.2 135 17 83/64 (70) 94 Room Air 11/15/18 19:03 98.2 94 13 105/80 96 Room Air 11/15/18 18:35 98.2 85 18 108/70 (83) 94 Room Air I & O 11/16/18 07:00 Intake Total 3900 ml Balance 3900 ml Height & Weight Height: 5'8.00" Weight: 222lbs. 0.0oz. 100.027692ag; 33.8 BMI Method:Stated General Appearance: WD/WN, Mild Distress HEENT: PERRL/EOMI, TMs Normal, Normal ENT Inspection, Pharynx Normal, Moist Mucous Membranes Neck: Full Range of Motion, Normal Inspection, Non Tender, Supple, Carotid Bruit Respiratory: Chest Non Tender, Normal Breath Sounds, No Accessory Muscle Use, No Respiratory Distress Cardiovascular: No Edema, No Gallop, No JVD, No Murmur, Normal Peripheral Pulses, Irregularly Irregular Capillary Refill: Less Than 3 Seconds Gastrointestinal: normal bowel sounds, non tender, soft Extremity: Normal Capillary Refill, Normal Inspection, Normal Range of Motion, Non Tender, No Calf Tenderness, No Pedal Edema Neurologic/Psychiatric: Alert, Oriented x3, No Motor/Sensory Deficits, Normal Mood/Affect Skin: Normal Color, Warm/Dry Lymphatic: No Adenopathy Results Lab Laboratory Tests 11/15/18 18:45 11/16/18 03:35 Assessment/Plan Assessment/Plan Afib rvr -currently off cardizem gtt Dehydration with hypotension -Will give another liter bolus and continue to monitor BP -Repeat bolus if still hypotensive. Abdominal pain with nausea, vomiting, and diarrhea -IVF and monitor Syncope probably secondary to dehydration -Monitor. Small PE dx at last hospitalization -Pt is on FERNANDO Price DO Nov 16, 2018 11:48
--- NOTE | 2018-11-16 12:18 | NUR ---
PT TRANSFERRED TO [facility] VIA W/ STAFF AND . PERSONAL BELONGINGS W/ PT. REPORT GIVEN TO JERRI HARRIS, NO QUESTIONS/CONCERNS VOICED.
--- NOTE | 2018-11-16 12:20 | NUR ---
TRANSFERRED FROM ICU TO ROOM 416 PER W/C. ALERT AND COOPERATIVE. DENIES NAUSEA OR PAIN AT THIS TIME. AT BEDSIDE.
[2018-11-16] MEDS: ENOXAPARIN 40 MG/0.4 ML (LOVENOX) SYR SC SCH (14:02)
--- NOTE | 2018-11-16 17:38 | History & Physical-Hospitalist ---
History of Present Illness HPI/Chief Complaint After recent admission for gastroenteritis with dehydration and hypovolemia and secondary acute kidney injury I had seen the patient in the office the day of his admission he was feeling well and off of antihypertensive medication he was back to baseline levels of hypertension. His blood pressure in the office is 160/110 he was asymptomatic with this tolerating solids with no abdominal pain or diarrhea. I instructed that he resume Benicar 40 mg today. He did so and within an hour he noted epigastric pain blood pressure decreased to the 110/60 range at home he was feeling weak progressed to abdominal pain followed by explosive diarrhea. These are all the same symptoms that he had had from his previous admission and followed his Benicar dose one to one and a half hours after taking the medication. His blood pressure was low with explosive diarrhea and risk for dehydration and secondary acute kidney injury some aggressive IV fluids were initiated the patient was admitted. Date Seen 11/16/18 Time Seen by a Provider: 07:30 Attending Physician Alana Oakes MD PCP Alana Oakes MD Referring Physician Date of Admission Nov 16, 2018 at 15:11 Home Medications & Allergies Home Medications Reviewed patient Home Medication Reconciliation performed by pharmacy medication reconciliations manufacturing plant technician and/or nursing. Patients Allergies have been reviewed. Allergies Allergies Coded Allergies olmesartan (Verified Allergy, Intermediate, ABDOMNIAL PAIN/NAUSEA/VOMITING/DIARRHEA, 11/16/18) Past Beglrnk-Jjvwha-Gipyja Hx Past Med/Social Hx: Reviewed and Corrections made Patient Social History Marrital Status: Employed/Student: employed Alcohol Use: Occasionally Uses Number of Drinks Today: AA Alcohol Beverage of Choice: Beer Recreational Drug Use: No Smoking Status: Never a Smoker 2nd Hand Smoke Exposure: No Recent Foreign Travel: No Contact w/other who traveled: No Recent Hopitalizations: Yes Recent Infectious Disease Expo: No Immunizations Up To Date Tetanus Booster (TDap): Unknown Pediatric: No Date of Influenza Vaccine: Mar 06, 2018 Seasonal Allergies Seasonal Allergies: Yes Past Medical History Surgeries: Abdominal, Nose, Tonsillectomy Cardiac: Atrial Fibrillation, Hypertension Sexually Transmitted Disease: No HIV/AIDS: No Gastrointestinal: Abdominal Hernia, Liver Disease/Jaundice, Diverticulosis Loss of Vision: Bilateral Hearing Impairment: Denies History of Blood Disorders: No Adverse Reaction to Blood Love: No (N/A) Family History Alcoholism 19 FATHER Cardiovascular disease G8 BROTHER FH: atrial fibrillation 19 MOTHER G8 BROTHER Gastroenteritis G8 BROTHER No Pertinent Family Hx Review of Systems Constitutional: see HPI, weakness Respiratory: no symptoms reported; No see HPI, No cough, No dyspnea on exertion, No hemoptysis, No orthopnea, No phlegm, No short of breath, No stridor, No wheezing, No other Cardiovascular: no symptoms reported; No chest pain; edema; No Hx of Intervention, No palpitations, No syncope, No vascular heart diseas, No other Gastrointestinal: see HPI, abdominal pain (Generalized); No constipation; diarrhea; No dysphagia, No hematemesis, No heartburn, No jaundice; loss of appetite; No melena; nausea; No vomiting, No other Physical Exam Physical Exam Vital Signs Vital Signs - First Documented 11/15/18 18:35 Temp 98.2 Pulse 85 Resp 18 B/P (MAP) 108/70 (83) Pulse Ox 94 O2 Delivery Room Air Capillary Refill : Less Than 3 Seconds Height, Weight, BMI Height: 5'8.00" Weight: 222lbs. 0.0oz. 100.350724kd; 33.8 BMI Method:Stated General Appearance: Moderate Distress (Upon arrival current mild distress due to abdominal discomfort improved with Zofran and fentanyl.) HEENT: PERRL/EOMI Neck: Full Range of Motion, Normal Inspection Respiratory: Chest Non Tender, Lungs Clear, Normal Breath Sounds, No Accessory Muscle Use, No Respiratory Distress Cardiovascular: No Edema (1+ bilateral improved from yesterday when he was in the office), No Gallop, No JVD, No Murmur, Normal Peripheral Pulses, Irregularly Irregular Gastrointestinal: Soft, Distended (Mild bowel sounds hyperactive), Tenderness (Mild generalized) Extremity: Normal Capillary Refill, Normal Inspection, Normal Range of Motion, Non Tender, No Calf Tenderness Neurologic/Psychiatric: Alert, Oriented x3 Results Results/Procedures Labs Laboratory Tests 11/17/18 06:26 11/17/18 08:03 Patient resulted labs reviewed. Assessment/Plan Admission Diagnosis A/P 1. Abdominal pain with hypotension diarrhea and acute kidney injury secondary to side effect of Benicar most likely continue pain medication and anti-medics as well as IV fluid replacement with repeat basic metabolic panel and CBC in the morning. 2. Hypertension current relative hypotension hold all antihypertensive medication. 3. Chronic atrial fibrillation we'll hold recently initiated Eliquis with prophylactic Lovenox for DVT prophylaxis Admission Status: Inpatient Order (span 2 midnights) Reason for Inpatient Admission: See admission diagnosis Clinical Quality Measures DVT/VTE Risk/Contraindication: Risk Factor Score Per Nursin RFS Level Per Nursing on Admit: 4+=Very High Copy Copies To 1: ALANA OAKES MD, MARK D MD Nov 16, 2018 17:38
[2018-11-17] VITALS: BP 107/68
[2018-11-17] MEDS: LACTATED RINGERS 1,000 ML IV SCH ×2 (00:56→09:10)
[2018-11-17 04:30] VITALS: BP 119/79
[2018-11-17 07:11] LABS: CALCIUM 8.2 MG/DL (8.5-10.1); CREATININE SERUM 1.44 MG/DL (0.60-1.30); MAGNESIUM 2.2 MG/DL (1.8-2.4); POTASSIUM 4.1 MMOL/L (3.6-5.0)
--- NOTE | 2018-11-17 07:18 | Pulmonary Progress Note ---
Subjective Time Seen by a Provider: 12:51 Subjective/Events-last exam Pt appears to be doing better. Sepsis Event Evaluation Height, Weight, BMI Height: 5'8.00" Weight: 222lbs. 0.0oz. 100.639514lk; 33.8 BMI Method:Stated Focused Exam Lactate Level 11/15/18 18:45: Lactic Acid Level 2.26*H 11/15/18 21:20: Lactic Acid Level 1.77 Exam Exam Vital Signs Date Time Temp Pulse Resp B/P (MAP) Pulse Ox O2 Delivery O2 Flow Rate FiO2 11/17/18 04:30 98.0 81 20 119/79 (92) 97 Room Air 11/17/18 01:00 102 11/17/18 00:00 97.1 84 20 107/68 (81) 96 Room Air 11/16/18 20:22 98.3 90 20 112/70 (84) 96 Room Air 11/16/18 20:00 Room Air 11/16/18 19:00 95 11/16/18 16:00 Room Air 11/16/18 15:31 97.8 79 20 105/71 (82) 96 Room Air 11/16/18 13:00 62 11/16/18 12:13 Room Air 11/16/18 12:00 92 92/63 (73) 93 Room Air 11/16/18 11:30 98.4 11/16/18 11:00 60 8 103/60 (74) 93 Room Air 11/16/18 10:00 68 18 96/67 (77) 94 Room Air 11/16/18 09:00 74 17 79/55 (63) 94 Room Air 11/16/18 08:00 99.0 11/16/18 08:00 86 18 88/65 (73) 90 Room Air 11/16/18 08:00 Room Air I & O 11/17/18 07:00 Intake Total 8275 ml Output Total 502 ml Balance 7773 ml Height & Weight Height: 5'8.00" Weight: 222lbs. 0.0oz. 100.795177rf; 33.8 BMI Method:Stated General Appearance: WD/WN, Mild Distress HEENT: PERRL/EOMI, TMs Normal, Normal ENT Inspection, Pharynx Normal, Moist Mucous Membranes Neck: Full Range of Motion, Normal Inspection, Non Tender, Supple, Carotid Bruit Respiratory: Chest Non Tender, Normal Breath Sounds, No Accessory Muscle Use, No Respiratory Distress Cardiovascular: No Edema, No Gallop, No JVD, No Murmur, Normal Peripheral Pulses, Irregularly Irregular Capillary Refill: Less Than 3 Seconds Gastrointestinal: normal bowel sounds, non tender, soft Extremity: Normal Capillary Refill, Normal Inspection, Normal Range of Motion, Non Tender, No Calf Tenderness, No Pedal Edema Neurologic/Psychiatric: Alert, Oriented x3, No Motor/Sensory Deficits, Normal Mood/Affect Skin: Normal Color, Warm/Dry Lymphatic: No Adenopathy Results Lab Laboratory Tests 11/15/18 18:45 11/16/18 03:35 11/17/18 06:26 Assessment/Plan Assessment/Plan Afib -Cardiology following Dehydration - improving -IVF Abdominal pain with nausea, vomiting, and diarrhea -IVF and monitor Acute renal failure -Improving -IVF Metabolic lactic acidosis -IVF Syncope probably secondary to dehydration -Monitor. Small PE dx at last hospitalization -Pt was on Eliquis -Pt is on FERNANDO FIGUEROA DO Nov 17, 2018 07:18
[2018-11-17 08:00] VITALS: BP 148/97
[2018-11-17 08:14] LABS: BASOPHILS % (AUTO) 0 % (0-10); EOSINOPHILS # (AUTO) 0.1 10^3/uL (0.0-0.3); EOSINOPHILS % (AUTO) 1 % (0-10); HEMATOCRIT 39 % (40-54); HEMOGLOBIN 13.2 G/DL (13.3-17.7); LYMPHOCYTES # (AUTO) 0.8 X 10^3 (1.0-4.0); LYMPHOCYTES % (AUTO) 11 % (12-44); MEAN CORPUSCULAR HEMOGLOBIN 32 PG (25-34); MEAN CORPUSCULAR HGB CONC 34 G/DL (32-36); MEAN CORPUSCULAR VOLUME 95 FL (80-99); MEAN PLATELET VOLUME 10.7 FL (7.4-10.4); MONOCYTES # (AUTO) 0.5 X 10^3 (0.0-1.0); MONOCYTES % (AUTO) 8 % (0-12); NEUTROPHILS # (AUTO) 5.7 X 10^3 (1.8-7.8); NEUTROPHILS % (AUTO) 80 % (42-75); PLATELET COUNT 236 10^3/uL (130-400); RED CELL DISTRIBUTION WIDTH 14.4 % (10.0-14.5); WHITE BLOOD COUNT 7.2 10^3/uL (4.3-11.0)
--- NOTE | 2018-11-17 08:54 | Cardiology Progress Note ---
Subjective Date Seen by Provider: Nov 17, 2018 Time Seen by Provider: 08:52 Subjective/Events-last exam Patient is in a chair, Feeling better, still having diarrhea. Denied any chest pain Review of Systems General: No Chills, No Night Sweats, No Fatigue, No Malaise, No Appetite, No Other HEENT: No Head Aches, No Visual Changes, No Eye Pain, No Ear Pain, No Dysphasi a, No Sinus Congestion, No Post Nasal Drip, No Sore Throat, No Other Pulmonary: No Dyspnea, No Cough, No Pleuritic Chest Pain, No Other Cardiovascular: No: Chest Pain, Palpitations, Orthopnea, Paroxysmal Noc. Dyspnea, Edema, Lt Headedness, Other Focused Exam Lactate Level 11/15/18 18:45: Lactic Acid Level 2.26*H 11/15/18 21:20: Lactic Acid Level 1.77 Objective-Cardiology Exam Last Set of Vital Signs Vital Signs 11/17/18 11/17/18 04:30 07:00 Temp 98.0 Pulse 118 Resp 20 B/P (MAP) 119/79 (92) Pulse Ox 97 O2 Delivery Room Air Capillary Refill : Less Than 3 Seconds I&O Intake and Output 11/17/18 00:00 Intake Total 8500 ml Output Total 502 ml Balance 7998 ml Intake Oral 4300 ml IV Total 4200 ml Output Urine Total 502 ml # Voids 10 # Bowel Movements 9 General: Alert, Oriented X3, Cooperative HEENT: Atraumatic, PERRLA Neck: Supple, No JVD, No Thyromegaly Lungs: Clear to Auscultation, Normal Air Movement Heart: Normal S1, Normal S2, No Murmurs, Other (atrial fibrillation) Abdomen: Normal Bowel Sounds, Soft, No Tenderness, No Hepatosplenomegaly, No Masses Extremities: No Clubbing, No Cyanosis, No Edema, Normal Pulses, No Tenderness/Swelling Skin: No Rashes, No Breakdown, No Significant Lesion Neuro: Normal Gait, Normal Speech, Strength at 5/5 X4 Ext, Normal Tone, Sensation Intact Psych/Mental Status: Mental Status NL, Mood NL Results Lab Laboratory Tests 11/17/18 06:26 11/17/18 08:03 A/P-Cardiology Admission Diagnosis Chronic permanent atrial fibrillation Diarrhea Hypotension Syncope Assessment/Plan Atrial fibrillation, chronic permanent atrial fibrillation diagnosed in 2007, has been permanent controlled atrial fibrillation, currently tachycardic due to hypovolemia. Continue to monitor next Acute renal failure, improving, receiving IV fluid. Increased risk of stroke, has been on Eliquis as an outpatient, currently receiving Lovenox, managed by Dr. Manrique Abdominal pain, nausea and vomiting and diarrhea. Recurrent for the third time, managed by primary care team. Questionable bilateral small pulmonary embolism noted incidentally on CT scan on November 05, 2018, venous Doppler was negative, patient has been on Eliquis since then for the atrial fibrillation and the pulmonary embolism Hypertension, currently hypotensive, receiving IV fluid and holding all his blood pressure medication Questionable intolerance Olmisartan, reporting abdominal pain and nausea vomiting after taking the medication Syncope, secondary to hypotension, better at this time Clinical Quality Measures DVT/VTE Risk/Contraindication: Risk Factor Score Per Nursin RFS Level Per Nursing on Admit: 4+=Very High GABRIELA ROUSSEAU MD Nov 17, 2018 08:54
[2018-11-17 12:00] VITALS: BP 130/92
[2018-11-17] MEDS: ENOXAPARIN 40 MG/0.4 ML (LOVENOX) SYR SC SCH (13:22)
[2018-11-17] MEDS ORDERED: POTA8TAB6 PO (13:43)
[2018-11-17] MEDS ORDERED: CHLO25TA22 PO (13:43)
[2018-11-17 14:30] VITALS: BP 130/92
--- NOTE | 2018-11-17 14:30 | NUR ---
TALIA MACIAS demonstrates understanding of discharge instructions and accurately returns instructions upon questioning. Copy of Post-Discharge Instructions given to PT. TALIA MACIAS is able to manage continuing needs after discharge. Patients belongings returned to PT. Patient discharged from [facility] on 11/17/18 at 1430. TALIA MACIAS left floor via W/C, accompanied by STAFF AND PER AUTO.
--- NOTE | 2018-11-18 11:12 | Discharge Summary-Hospitalist ---
Diagnosis/Chief Complaint Date of Admission Nov 16, 2018 at 15:11 Date of Discharge Nov 17, 2018 at 14:30 Discharge Date: Nov 17, 2018 Admission Diagnosis A/P 1. Abdominal pain with hypotension diarrhea and acute kidney injury secondary to side effect of Benicar most likely continue pain medication and anti-medics as well as IV fluid replacement with repeat basic metabolic panel and CBC in the morning. 2. Hypertension current relative hypotension hold all antihypertensive medication. 3. Chronic atrial fibrillation we'll hold recently initiated Eliquis with prophylactic Lovenox for DVT prophylaxis Discharge Diagnosis As per admission diagnoses above. Discharge Summary Discharge Physical Exam Allergies: Coded Allergies: olmesartan (Verified Allergy, Intermediate, ABDOMNIAL PAIN/NAUSEA/VOMITING/DIARRHEA, 11/16/18) Vitals & I&Os Vital Signs Date Time Temp Pulse Resp B/P (MAP) Pulse Ox O2 Delivery O2 Flow Rate FiO2 11/17/18 14:30 80 20 130/92 96 Room Air 11/17/18 12:00 97.1 General Appearance: No Apparent Distress, WD/WN, Obese Respiratory: Chest Non Tender, Lungs Clear, Normal Breath Sounds, No Accessory Muscle Use, No Respiratory Distress Cardiovascular: No Edema, No Gallop, No JVD, No Murmur, Irregularly Irregular Gastrointestinal: Normal Bowel Sounds, No Organomegaly, No Pulsatile Mass, Non Tender, Soft Hospital Course Was the Problem List Reviewed?: Yes After recent admission for gastroenteritis with dehydration and hypovolemia and secondary acute kidney injury I had seen the patient in the office the day of his admission he was feeling well and off of antihypertensive medication he was back to baseline levels of hypertension. His blood pressure in the office is 160/110 he was asymptomatic with this tolerating solids with no abdominal pain or diarrhea. I instructed that he resume Benicar 40 mg today. He did so and within an hour he noted epigastric pain blood pressure decreased to the 110/60 range at home he was feeling weak progressed to abdominal pain followed by explosive diarrhea. These are all the same symptoms that he had had from his previous admission and followed his Benicar dose one to one and a half hours after taking the medication. His blood pressure was low with explosive diarrhea and risk for dehydration and secondary acute kidney injury some aggressive IV fluids were initiated the patient was admitted Was admitted with IV fluids initiated. For abdominal pain and nausea he required fentanyl and Zofran. He had multiple loose liquid stools that were moderating and beginning to form by the morning of this discharge with resolution of abdominal pain. He was tolerating solids without difficulty. In discussion of potential Benicar side effect the patient stated that he had been given this medicine in 2006 and did not recognize it by its trade name at that time he had abdominal pain and diarrhea that was not nearly as fulminant as his current reaction. He had been recently switched to Benicar and had been tolerating Avapro well but had to be switched due to unavailability. His creatinine decreased from 2.54-1.46 and the patient was tolerating liquids and solids. We will likely be avoiding all ARB class medicines for now. As he presented with some edema and hypertension we'll have him resume chlorthalidone with 8 mV potassium. Chlorthalidone dose he'll start cutting his 25 mg tablet in half and only when his blood pressures become hypertensive again over 140/90. I advised the resume anticoagulant therapy as well with follow-up office visit in approximately one week. Labs (last 24 hrs) Microbiology 11/15/18 Blood Culture - Preliminary, Resulted No growth 11/15/18 MRSA Screen - Final, Complete MRSA not isolated Patient resulted labs reviewed. Discussion & Recommendations Discharge Planning: >30 minutes discharge planning Discharge Home Medications: Active Scripts Active Potassium Chloride 8 Meq Tablet.er 8 Meq PO DAILY 90 Days Chlorthalidone 25 Mg Tablet 25 Mg PO DAILY 60 Days Reported Ondansetron Odt (Ondansetron) 4 Mg Tab.rapdis 4 Mg PO Q6H PRN Eliquis (Apixaban) 5 Mg Tablet 5 Mg PO BID Dicyclomine HCl 20 Mg Tablet 20 Mg PO Q6H PRN Instructions to patient/family Please see electronic discharge instructions given to patient. Clinical Quality Measures DVT/VTE Risk/Contraindication: Risk Factor Score Per Nursin RFS Level Per Nursing on Admit: 4+=Very High ALANA OAKES MD Nov 18, 2018 11:12
== END 2018-11-17 14:30 | disposition home or self-care (01) | DRG 683 ==
LOC: EDUNIT# 18:29 → ER 18:31 → UNDOADMOB 20:45 → ICU 20:45 → 4TH 11-16 12:19 → INTOOBSV 11-16 15:11 → OBSVTOIN 11-16 15:11 → UNDODISIN 11-17 14:30
PROVIDERS: ADMIT Internal Medicine; ATTEND Internal Medicine
DX: N17.9 Acute kidney failure, unspecified (principal); T46.5X5A Adverse effect of other antihypertensive drugs, initial encounter; E87.2 Acidosis; I95.9 Hypotension, unspecified; I48.2 Chronic atrial fibrillation; I10 Essential (primary) hypertension; K57.90 Diverticulosis of intestine, part unspecified, without perforation or abscess without bleeding; K76.9 Liver disease, unspecified; E86.0 Dehydration; K52.9 Noninfective gastroenteritis and colitis, unspecified; Z86.711 Personal history of pulmonary embolism; Z79.01 Long term (current) use of anticoagulants
CPT/HCPCS: 36415; 71045; 80048; 80053; 83605; 83735; 84100; 84484; 85007; 85025; 85027; 87040; 87081; 96361; 96365; 96375; G0378

== ENCOUNTER → 2020-06-09 | Outpatient (CLI) | payer BC ==
[~2020-06-09] MED LIST changes: +IRBE300T17 PO; -IRBE300T18 PO; -METO-370 PO; +METO50TA7 PO; +POTA8TAB6 PO
== END ==
LOC: LABNPT 08:15
PROVIDERS: ATTEND Internal Medicine
DX: U07.1 COVID-19 (principal)
CPT/HCPCS: 87635

== ENCOUNTER → 2020-07-08 | Outpatient (CLI) | payer BC ==
[2020-07-08 11:44] LABS: CREATINE KINASE MB 2.1 NG/ML (<6.6)
== END ==
LOC: LAB 11:06
PROVIDERS: ATTEND Nurse Practitioner Family
DX: I48.91 Unspecified atrial fibrillation (principal); I20.9 Angina pectoris, unspecified
CPT/HCPCS: 36415; 82553; 83874; 84484

== ENCOUNTER 2021-01-04 13:53 | Emergency (ER) | payer BC ==
[~2021-01-04] VITALS: Ht 172.7 cm; Wt 99.7 kg
--- NOTE | 2021-01-04 15:15 | ED General ---
General Chief Complaint: General Problems/Pain Stated Complaint: RUNNY NOSE,SORE THROAT, HEADACHE, DIARRHEA Nursing Triage Note: Pt ambulatory into ER with cough/runny nose/diarrhea x1 day. Pt states that he is here to be covid swabbed. Pt states that he nor his can go to work unless he is negative. Pt is vaccinated and had covid in June. Pt states that these are the symptoms he started with then when he was positive. Source of Information: Patient Exam Limitations: No Limitations History of Present Illness Date Seen by Provider: Jan 07, 2021 Time Seen by Provider: 13:30 Initial Comments Patient presents to the emergency room with a chief complaint of cough, runny nose, diarrhea. Patient would like to be Covid swabbed. He is vaccinated, Moderna but has also had Covid. Timing/Duration: 1 Day Severity: Mild Allergies and Home Medications Allergies Coded Allergies: olmesartan (Verified Allergy, Intermediate, ABDOMNIAL PAIN/NAUSEA/VOMITING/DIARRHEA, 11/16/18) Home Medications Apixaban 5 Mg Tablet, 5 MG PO BID, (Reported) Chlorthalidone 25 Mg Tablet, 25 MG PO DAILY Prescribed by: ALANA OAKES on 11/17/18 1343 Dicyclomine HCl 20 Mg Tablet, 20 MG PO Q6H PRN for ABDOMINAL PAIN, (Reported) Ondansetron 4 Mg Tab.rapdis, 4 MG PO Q6H PRN for NAUSEA/VOMITING-1ST LINE, (Reported) Potassium Chloride 8 Meq Tablet.er, 8 MEQ PO DAILY Prescribed by: ALANA OAKES on 11/17/18 1343 Patient Home Medication List Home Medication List Reviewed: Yes Review of Systems Review of Systems Constitutional: see HPI EENTM: nose congestion Respiratory: cough Cardiovascular: no symptoms reported Gastrointestinal: diarrhea Genitourinary: no symptoms reported Musculoskeletal: no symptoms reported Skin: no symptoms reported All Other Systems Reviewed Negative Unless Noted: Yes Past Msavugu-Fwxswt-Iifvit Hx Patient Social History Tobacco Use?: No Use of E-Cig and/or Vaping dev: No Substance use?: No Alcohol Use?: Yes Alcohol Frequency: Daily Pt feels they are or have been: No Immunizations Up To Date Tetanus Booster (TDap): Unknown PED Vaccines UTD: No Influenza Vaccine Up-to-Date: No; Not Current Second COVID19 Vaccination Jakub: 10/24 COVID19 Vaccine Burglary Investigator: Moderna Seasonal Allergies Seasonal Allergies: Yes Past Medical History Surgeries: Yes Abdominal, Nose, Tonsillectomy Respiratory: No Cardiac: Yes (PT HAS DECLINED ANTICOAGULATION--TAKES ASPIRIN DAILY) Atrial Fibrillation, Hypertension Neurological: No Sexually Transmitted Disease: No HIV/AIDS: No Genitourinary: No Gastrointestinal: Yes Abdominal Hernia, Liver Disease/Jaundice, Diverticulosis Musculoskeletal: No Endocrine: No HEENT: Yes (GLASSES; S/P RHINOPLASTY/SEPTOPLASTY) Loss of Vision: Bilateral Hearing Impairment: Denies Cancer: No Psychosocial: No Integumentary: No Blood Disorders: No Adverse Reaction/Blood Tranf: No (N/A) Family Medical History Alcoholism 19 FATHER Cardiovascular disease G8 BROTHER FH: atrial fibrillation 19 MOTHER G8 BROTHER Gastroenteritis G8 BROTHER No Pertinent Family Hx Physical Exam Vital Signs Vital Signs - First Documented 01/04/21 14:02 Temp 36.6 Pulse 98 Resp 20 B/P (MAP) 164/95 (118) Pulse Ox 97 O2 Delivery Room Air Capillary Refill : Less Than 3 Seconds Height, Weight, BMI Height: 5'8.00" Weight: 223lbs. 0.0oz. 101.717909pc; 33.00 BMI Method:Stated General Appearance: No Apparent Distress, WD/WN Respiratory: Lungs Clear, Normal Breath Sounds, No Accessory Muscle Use Cardiovascular: Regular Rate, Rhythm Gastrointestinal: Non Tender, Soft, Abnormal Bowel Sounds (hyperactive) Extremity: Normal Inspection Neurologic/Psychiatric: Alert, Oriented x3, No Motor/Sensory Deficits, Normal Mood/Affect Progress/Results/Core Measures Suspected Sepsis SIRS Temperature: Pulse: 98 Respiratory Rate: 20 Blood Pressure 164 /95 Mean: 118 Results/Orders Lab Results Laboratory Tests Test 01/04/21 14:05 Range/Units Influenza Type A (RT-PCR) Not Detected Not Detecte Influenza Type B (RT-PCR) Not Detected Not Detecte SARS-CoV-2 RNA (RT-PCR) Not Detected Not Detecte Vital Signs/I&O 01/04/21 01/04/21 14:02 15:20 Temp 36.6 Pulse 98 84 Resp 20 20 B/P (MAP) 164/95 (118) 151/88 Pulse Ox 97 98 O2 Delivery Room Air Room Air Capillary Refill : Less Than 3 Seconds Blood Pressure Mean: 118 Departure Impression Primary Impression: Viral syndrome Disposition: 01 HOME, SELF-CARE Condition: Stable Departure-Patient Inst. Decision time for Depature: 15:15 Referrals: ALANA OAKES MD (PCP/Family) Primary Care Physician Patient Instructions: Viral Syndrome (DC) Add. Discharge Instructions: Drink plenty of fluids to stay well-hydrated. Alternate Tylenol and ibuprofen as needed for body aches and any temperature over 100.4. Consider getting your Covid vaccination please. Mask and social distance when appropriate. You can use coqb-[id number]-[id number] Imodium for diarrhea. Return to the emergency room for any new, concerning or emergent complaints. KAREN HENRY MD Jan 04, 2021 15:15
[2021-01-04 15:20] VITALS: BP 151/88
== END 2021-01-04 15:20 | disposition home or self-care (01) ==
LOC: EDUNIT# 13:53 → ER 14:00
DX: B34.9 Viral infection, unspecified (principal); I10 Essential (primary) hypertension; I48.91 Unspecified atrial fibrillation; Z20.822 Contact with and (suspected) exposure to COVID-19; Z79.01 Long term (current) use of anticoagulants; Z79.899 Other long term (current) drug therapy
CPT/HCPCS: 87636; 99281

== ENCOUNTER 2021-02-18 11:52 | Outpatient (RCR) | payer BC | END 2021-03-17 | disposition home or self-care (01) | LOC: CR 11:52 | PROVIDERS: ATTEND Internal Medicine Critical Care Medicine | DX: Z95.5 Presence of coronary angioplasty implant and graft (principal) | CPT/HCPCS: 93798 ==

== ENCOUNTER 2021-05-06 05:37 | Outpatient (CLI) | payer BC ==
[~2021-05-06] VITALS: Ht 172.7 cm; Wt 101.4 kg
[~2021-05-06 05:37] MED LIST changes: -CARV12.52 PO; -CLOP75TA69 PO
[2021-05-06] MEDS ORDERED: CARV12.52 PO (14:36)
[2021-05-06] MEDS ORDERED: CLOP75TA69 PO (14:36)
== END 2021-05-06 14:51 | disposition home or self-care (01) ==
LOC: PREOP 05:37
PROVIDERS: ATTEND Orthopaedic Surgery
DX: Z01.818 Encounter for other preprocedural examination (principal)

== ENCOUNTER → 2021-05-06 | Outpatient (CLI) | payer BC ==
[~2021-05-06] MED LIST changes: +CARV12.52 PO; +CLOP75TA69 PO; +DICY20TA PO; -DICY20TA10 PO
--- NOTE | 2021-05-06 17:35 | Diagnostic Imaging Report ---
PROCEDURE: CT chest, abdomen, and pelvis without contrast. TECHNIQUE: Multiple contiguous axial images were obtained through the chest, abdomen, and pelvis without the use of intravenous contrast. Auto Exposure Controls were utilized during the CT exam to meet ALARA standards for radiation dose reduction. INDICATION: Fall. Hit the left back. Chest and abdominal pain. COMPARISON: 11/05/2018. CT chest: The heart size is within normal limits. No pericardial effusion is present. There is no mediastinal, hilar, or axillary lymphadenopathy. The lung windows demonstrate no pulmonary nodules or masses. There are no focal areas of consolidation. No central endobronchial obstructing lesions are identified. Acute displaced fracture is seen involving the posterior aspect of the left 10th rib. Associated trace pleural hemorrhage is seen. No evidence of pneumothorax. CT abdomen: The liver, spleen, pancreas, adrenal glands, and kidneys have a normal appearance. The gallbladder is decompressed. There is no pathologically enlarged mesenteric or retroperitoneal adenopathy. The bowel loops are nondilated. The appendix is visualized in the right lower quadrant and has a normal appearance. Diverticula are seen in the sigmoid colon without evidence of acute diverticulitis. There is no free fluid or free air. The osseous structures are age-appropriate. There is calcified aortic and iliac atherosclerotic plaque without aneurysm. Ureters and bladder are grossly normal. There is no free air, loculated collection, or adenopathy in the pelvis. IMPRESSION: 1. Acute displaced fracture involving the posterior left 10th rib. There is associated trace pleural hemorrhage. No evidence of pneumothorax. 2. No acute abnormality in the abdomen and pelvis. 3. Diverticulosis of the sigmoid colon without evidence of acute diverticulitis. Dictated by: Dictated on workstation # [id number]
== END ==
LOC: RAD 16:53
PROVIDERS: ATTEND Physician Assistant
DX: S22.32XA Fracture of one rib, left side, initial encounter for closed fracture (principal); K57.30 Diverticulosis of large intestine without perforation or abscess without bleeding; K44.0 Diaphragmatic hernia with obstruction, without gangrene; I10 Essential (primary) hypertension; K21.9 Gastro-esophageal reflux disease without esophagitis; I48.91 Unspecified atrial fibrillation; W19.XXXA Unspecified fall, initial encounter
CPT/HCPCS: 71250; 74176

== ENCOUNTER → 2021-05-08 | Outpatient (CLI) | payer BC ==
[~2021-05-08] MED LIST changes: +CARV12.52 PO; +CETI10TA17 PO; +CLOP75TA69 PO
--- NOTE | 2021-05-08 09:14 | Diagnostic Imaging Report ---
INDICATION: Rib fracture. TIME OF EXAM: 9:10 AM The heart is mildly enlarged. Lungs appear to be clear. No effusion is seen. No pneumothorax identified. Known left 10th rib fracture is not well visualized radiographically. IMPRESSION: No acute cardiopulmonary process is detected. Dictated by: Dictated on workstation # [id number]
== END ==
LOC: RAD 08:46
PROVIDERS: ATTEND Physician Assistant
DX: S22.32XA Fracture of one rib, left side, initial encounter for closed fracture (principal); X58.XXXA Exposure to other specified factors, initial encounter
CPT/HCPCS: 71046

== ENCOUNTER 2021-05-13 06:50 | Day surgery (SDC) | payer BC ==
--- NOTE | 2021-05-05 19:56 | HISTORY AND PHYSICAL ---
DATE OF SERVICE: This will be for outpatient surgery for right rotator cuff repair on 05/13/2021. HISTORY OF PRESENT ILLNESS: The patient is a 66-year-old right hand dominant gentleman who injured his right shoulder while remodeling a bathroom year and a half ago. Since then, has had pain with overhead activities. He has undergone two injections which provided only temporary relief of his symptoms. An MRI was ultimately obtained, which revealed a full-thickness supraspinatus tear. He reports continued pain and weakness in his shoulder because of this, it was elected to proceed with surgical intervention. REVIEW OF SYSTEMS: No chest pain, no shortness of breath, no dysuria. PAST MEDICAL HISTORY: COVID pneumonia, mumps, measles, atrial fibrillation and hypertension. PAST SURGICAL HISTORY: Tonsillectomy, rhinoplasty, inguinal herniorrhaphy, appendectomy, wisdom tooth extraction, vasectomy. FAMILY HISTORY: Significant for CVA, atrial fibrillation, myocardial infarction. PRIMARY CARE PROVIDER: Dr. Manrique. MEDICATIONS: Eliquis, chlorthalidone, potassium, Coreg. ALLERGIES: OLMESARTAN. SOCIAL HISTORY: Drinks alcohol daily. Denies tobacco use. PHYSICAL EXAMINATION: GENERAL: The patient is a well-developed, well-nourished, in no acute distress. HEENT: Normocephalic, atraumatic. Pupils are equal, round and reactive to light. Oropharynx is clear. NECK: Supple, with no lymphadenopathy. LUNGS: Clear to auscultation bilaterally. HEART: Regular rate and rhythm. ABDOMEN: Soft, nontender, nondistended. EXTREMITIES: The right shoulder demonstrates forward elevation, external and internal rotation symmetric to the contralateral side. He has a positive Dane's maneuver, positive Neer's and Nina sign, weakness with abduction and external rotation. IMPRESSION: Right supraspinatus tear. PLAN: Right shoulder arthroscopy, possible biceps tenotomy, acromioplasty and open rotator cuff repair. The risks, benefits, options, ramifications and recovery were discussed at length with the patient. He understands and wishes to proceed. Job ID: [id number] DocumentID: [id number] Dictated Date: 05/05/2021 09:36:21 Senior Analyst Programmer Date: 05/05/2021 09:55:09 Dictated By: DEEJAY HYMAN MD
[~2021-05-13] VITALS: Ht 172.7 cm; Wt 101.4 kg
[2021-05-13] VITALS (11 sets, daily range): BP systolic 117–166; BP diastolic 83–98
[~2021-05-13 06:50] MED LIST changes: -CETI10TA17 PO
[2021-05-13] MEDS ORDERED: ceFAZolin INJECTION 1,000 MG VIAL IV ONE (07:15)
[2021-05-13] MEDS ORDERED: LACTATED RINGERS 1,000 ML IV PRN (07:15)
[2021-05-13] MEDS ORDERED: oxyCODONE/APAP 5/325MG (PERCOCET 5) TABLET PO PRN (07:30)
--- NOTE | 2021-05-13 07:37 | Progress Note-Pre Operative ---
Pre-Operative Progress Note H&P Reviewed The H&P was reviewed, patient examined and no changes noted. Date Seen by Provider: May 13, 2021 Time Seen by Provider: 07:25 Date H&P Reviewed: May 13, 2021 Time H&P Reviewed: 07:11 Pre-Operative Diagnosis: right rotator cuff tear DEEJAY HYMAN MD May 13, 2021 07:37
--- NOTE | 2021-05-13 07:38 | Progress Note-Post Operative ---
Post-Operative Progess Note Surgeon (s)/History Faculty Member (s) Surgeon DEEJAY HYMAN MD History Faculty Member: Damon Young Pre-Operative Diagnosis right rotator cuff tear Post-Operative Diagnosis right rotator cuff tear, SLAP tear and glenoid chondromalacia Procedure & Operative Findings Date of Procedure 05/13/21 Procedure Performed/Findings right shoulder arthroscopic acromioplasty, biceps tenotomy, glenoid chondroplasty and open rotator cuff repair Anesthesia Type GETA Estimated Blood Loss Estimated blood loss (mL): minimal Specimens/Packing Specimens Removed none Packing: none DEEJAY HYMAN MD May 13, 2021 07:38
[2021-05-13] MEDS ORDERED: MIDAZOLAM 2 MG/2 ML (VERSED) VIAL ONE (07:57)
[2021-05-13] MEDS ORDERED: fentaNYL INJ 100 MCG/2 ML AMP ONE (07:57)
[2021-05-13] MEDS ORDERED: LIDOCAINE PF 2% 5 ML (XYLOCAINE) VIAL ONE (07:57)
[2021-05-13] MEDS ORDERED: proPOfol 200 MG/20 ML (DIPRIVAN) VIAL IV ONE (07:57)
[2021-05-13] MEDS ORDERED: ONDANSETRON 4 MG/2 ML (SDV) Z0FRAN ONE (07:57)
[2021-05-13] MEDS ORDERED: SEVOFLURANE (ULTANE) 15 ML INHAL SOLN ONE ×2 (07:57→09:35)
[2021-05-13] MEDS ORDERED: BUPIVACAINE 0.25% 30 ML (SENSORCAINE) VIAL ONE (07:58)
[2021-05-13] MEDS ORDERED: morphine PF (DURAMORPH) 10 MG/10 ML AMP ONE (07:58)
[2021-05-13] MEDS ORDERED: ACHD5005 PO (08:21)
[2021-05-13] MEDS ORDERED: CETI10TA17 PO (08:21)
[2021-05-13] MEDS ORDERED: GLYCOPYRROLATE 0.2 MG/ML (ROBINUL) 2 ML VIAL ONE (09:05)
[2021-05-13] MEDS ORDERED: NEOSTIGMINE 3 MG/3 ML VIAL ONE (09:05)
[2021-05-13] MEDS ORDERED: HYDROmorphone 2 MG/ML VIAL (DILAUDID) ONE (09:06)
[2021-05-13] MEDS ORDERED: KETOROLAC 30 MG/ML VIAL ONE (09:20)
[2021-05-13] MEDS ORDERED: ROCURONIUM 50 MG/5 ML (ZEMURON) VIAL IV ONE (09:21)
[2021-05-13] MEDS ORDERED: ONDANSETRON 4 MG/2 ML (SDV) Z0FRAN IVP PRN (09:45)
[2021-05-13] MEDS ORDERED: HYDROmorphone 2 MG/ML VIAL (DILAUDID) IV ONE (09:45)
--- NOTE | 2021-05-13 10:08 | Anesthesia-General Post-Op ---
General Patient Condition Mental Status/LOC: Same as Preop Cardiovascular: Satisfactory Nausea/Vomiting: Absent Respiratory: Satisfactory Pain: Controlled Complications: Absent Post Op Complications Complications None Follow Up Care/Instructions Patient Instructions None needed. Anesthesia/Patient Condition Patient Condition Patient is doing well, no complaints, stable vital signs, no apparent adverse anesthesia problems. No complications reported per nursing. D/[place] per [facility] [place]: Yes WILL HUBER CRNA May 13, 2021 10:08
--- NOTE | 2021-05-13 15:58 | OPERATIVE REPORT ---
DATE OF SERVICE: 05/13/2021 PREOPERATIVE DIAGNOSES: 1. Right shoulder rotator cuff tear. 2. Right shoulder SLAP tear. POSTOPERATIVE DIAGNOSES: 1. Right shoulder rotator cuff tear. 2. Right shoulder SLAP tear. 3. Right shoulder chondromalacia of the glenoid. PROCEDURES: 1. Right shoulder open rotator cuff repair. 2. Right shoulder arthroscopic biceps tenotomy. 3. Right shoulder arthroscopic chondroplasty glenoid. 4. Right shoulder arthroscopic acromioplasty. SURGEON: Rolly Hyman MD LEASE OUT MAN: JENNA MARCUS, who assisted throughout the procedure and closed the incisions. ANESTHESIA: General endotracheal by Charles Olivarez CRNA. ESTIMATED BLOOD LOSS: Minimal. DRAINS: None. COMPLICATIONS: None. POSTOPERATIVE PLAN: Sling wear and passive range of motion for 4 weeks. The patient was transferred to the recovery room awake and in stable condition. STATEMENT OF MEDICAL NECESSITY: The patient is a 66-year-old right hand dominant gentleman with complaints of right shoulder pain and weakness. He underwent an MRI, which revealed a supraspinatus tear as well as a SLAP tear. He tried rest, activity modifications and anti-inflammatories, but due to functional impairment, the patient elected to proceed with surgical intervention. Examination under anesthesia revealed forward elevation of 170 degrees, external rotation of 85 degrees and internal rotation of 70 degrees. Arthroscopic findings demonstrated a full-thickness supraspinatus tear approximately 1 x 1 cm in size. There was a grade II chondral flap in the central portion of the glenoid in an 8 x 8 area. There was a type 2 SLAP tear. The remainder of the labrum was intact. Subacromial space demonstrated dense bursitis with slope in the anterolateral acromion. DESCRIPTION OF PROCEDURE: After risks and benefits of procedure were discussed and questions were answered, an informed consent was signed and placed on chart. The operative site was confirmed in the preoperative holding area initialed by the surgeon. The patient was then transferred to the operating room and after adequate levels of general endotracheal anesthetic were obtained, a timeout was called, confirming the operative site. Examination under anesthesia was performed with above findings noted. The right shoulder and upper extremity were prepped and draped in the usual sterile fashion. Shoulder joint was injected with 20 mL fluid and standard posterior portal was placed under direct visualization. Anterior portal was created in the interval between biceps, subscapularis and glenoid. The biceps anchor was released, the stump was debrided with a shaver. The unstable chondral flaps on the glenoid were debrided with a shaver back to a stable edge. Scope was then redirected into the subacromial space and a bursectomy was performed. The acromion was planed to a flat type 1 acromion. The lateral portal was then extended and the deltoid was split in line with its fibers leaving attached the acromion. The rotator cuff tear was mobilized and a single corkscrew anchor was placed. Tendon quality was excellent. A modified - Aquiles-Rodrigo repair was performed with excellent repair obtained. No undue tension was noted at the arm at the side. The wound was copiously irrigated. The deltoid was repaired in a [id number] fashion with #2 FiberWire. The wound was further irrigated, 3-0 Vicryl was used to reapproximate subcutaneous tissue. Skin was closed with 4-0 nylon running alternating horizontal mattress fashion. Port sites were closed with 4-0 nylon in simple interrupted fashion. Shoulder joint was injected with Duramorph. The port sites were infiltrated with plain Marcaine. A soft dressing and sling were applied and the patient was transferred to the recovery room awake and in stable condition. Job ID: [id number] DocumentID: [id number] Dictated Date: 05/13/2021 09:34:15 Gluing Machine Adjuster Date: 05/13/2021 15:57:50 Dictated By: ROLLY HYMAN MD
== END 2021-05-13 12:48 | disposition home or self-care (01) ==
LOC: SDC 06:50
PROVIDERS: ATTEND Orthopaedic Surgery
DX: M75.121 Complete rotator cuff tear or rupture of right shoulder, not specified as traumatic (principal); S43.431A Superior glenoid labrum lesion of right shoulder, initial encounter; M94.211 Chondromalacia, right shoulder; I10 Essential (primary) hypertension; I25.10 Atherosclerotic heart disease of native coronary artery without angina pectoris; M19.90 Unspecified osteoarthritis, unspecified site; J18.9 Pneumonia, unspecified organism; U09.9 Post COVID-19 condition, unspecified; F17.290 Nicotine dependence, other tobacco product, uncomplicated; E78.5 Hyperlipidemia, unspecified; I45.81 Long QT syndrome; I34.0 Nonrheumatic mitral (valve) insufficiency; I49.3 Ventricular premature depolarization; I77.819 Aortic ectasia, unspecified site; I48.20 Chronic atrial fibrillation, unspecified; Z79.01 Long term (current) use of anticoagulants; Z79.899 Other long term (current) drug therapy; Z79.02 Long term (current) use of antithrombotics/antiplatelets
CPT/HCPCS: 23412; 29807; 87081; C1713

== ENCOUNTER 2021-06-03 14:29 | Outpatient (RCR) | payer BC ==
[~2021-06-03 14:29] MED LIST changes: +CETI10TA17 PO
== END 2021-06-05 | disposition home or self-care (01) ==
PROVIDERS: ATTEND Orthopaedic Surgery
DX: M75.121 Complete rotator cuff tear or rupture of right shoulder, not specified as traumatic (principal); I11.9 Hypertensive heart disease without heart failure; Z96.611 Presence of right artificial shoulder joint

== ENCOUNTER → 2021-07-06 | Outpatient (RCR) | payer BC | END | disposition home or self-care (01) | PROVIDERS: ATTEND Orthopaedic Surgery | DX: M75.121 Complete rotator cuff tear or rupture of right shoulder, not specified as traumatic (principal); I11.9 Hypertensive heart disease without heart failure; Z96.611 Presence of right artificial shoulder joint; Z95.820 Peripheral vascular angioplasty status with implants and grafts ==

== ENCOUNTER 2021-07-16 10:45 | Outpatient (RCR) | payer BC | END 2021-07-22 11:56 | disposition home or self-care (01) | PROVIDERS: ATTEND Orthopaedic Surgery | DX: M75.121 Complete rotator cuff tear or rupture of right shoulder, not specified as traumatic (principal); I11.9 Hypertensive heart disease without heart failure; Z96.611 Presence of right artificial shoulder joint ==